=== PATIENT | female | born 1970 | race American Indian/Alaskan Native ===

== ENCOUNTER 2022-03-16 15:51 | Inpatient (IN) | payer MEDICAID ==
--- NOTE | 2022-03-16 18:47 | XRay Report ---
CHEST 1 VIEW 03/16/2022 5:31 PM INDICATION / CLINICAL INFORMATION: Dyspnea. COMPARISON: None available. FINDINGS: SUPPORT DEVICES: None. HEART / MEDIASTINUM: Cardiomegaly and suspected central pulmonary venous congestion. LUNGS / PLEURA: Mild perihilar edema. No significant pleural effusion or evidence for pneumonia. No p neumothorax. ADDITIONAL FINDINGS: None IMPRESSION: 1. Suspected features of mild CHF with central pulmonary venous congestion and likely mild perihilar edema. Consider short-term PA and lateral chest follow-up. Signer Name: Carlos Christiansen MD Signed: 03/16/2022 6:42 PM Workstation Name: [id number]
[2022-03-16 19:05] LABS: Basophils # (Auto) 0.1 K/mm3 (0.0-0.1); Eosinophils % (Auto) 0.4 % (0.0-4.3); Lymphocytes # (Auto) 1.7 K/mm3 (1.2-5.4); Lymphocytes % (Auto) 19.9 % (13.4-35.0); Mean Corpuscular HGB Conc 29 % (30-34); Mean Corpuscular Volume 80 fl (79-97); Monocytes # (Auto) 1.2 K/mm3 (0.0-0.8); Monocytes % (Auto) 13.9 % (0.0-7.3); Platelet Count 344 K/mm3 (140-440)
[2022-03-16 19:09] LABS: Hematocrit 29.4 % (30.3-42.9); Hemoglobin 8.6 gm/dl (10.1-14.3)
[2022-03-16 19:20] LABS: Alanine Aminotransferase 15 units/L (7-56); Albumin 3.7 g/dL (3.9-5); BUN/Creatinine Ratio 16; Blood Urea Nitrogen 16 mg/dL (7-17); Calcium 8.7 mg/dL (8.4-10.2); Hemolysis Index 0
--- NOTE | 2022-03-16 19:24 | Emergency Department Report ---
HPI - General Chief Complaint: Dyspnea/Respdistress Time Seen by Provider: 03/16/22 19:01 - HPI HPI: Room 1 Patient is a 51-year-old female present with a chief complaint of shortness of breath. The patient states the past 2 to 3 weeks she is constant shortness of breath. Patient also admits an occasional cough productive of white sputum. Patient denies history of fever. Patient also admits to orthopnea for the same period of time. ED Past Medical Hx - Past Medical History Previous Medical History?: Yes Hx Hypertension: Yes Hx Asthma: Yes - Surgical History Past Surgical History?: No - Family History Family history: no significant - Social History Smoking Status: Never Smoker Substance Use Type: None (Denies illicit drug use) ED Review of Systems ROS: Stated complaint: HAVING TROUBLE BREATHING Other details as noted in HPI Constitutional: denies: fever Eyes: denies: eye pain ENT: denies: throat pain Respiratory: cough, orthopnea, shortness of breath Cardiovascular: orthopnea. denies: chest pain Endocrine: no symptoms reported Gastrointestinal: denies: abdominal pain Musculoskeletal: denies: back pain Neurological: denies: headache Physical Exam - Physical Exam Vital Signs: Vital Signs 03/16/22 17:26 Temperature 98.8 F Pulse Rate 89 Respiratory 18 Rate Blood Pressure 97/45 [Left] O2 Sat by Pulse 86 Oximetry Physical Exam: GENERAL: The patient is well-developed well-nourished female sleeping on stretcher not appearing to be in acute distress. [] HEENT: Normocephalic. Atraumatic. Extraocular motions are intact. Patient has moist mucous membranes. NECK: Supple. Trachea midline CHEST/LUNGS: Clear to auscultation. There is no respiratory distress noted. HEART/CARDIOVASCULAR: Regular. There is no tachycardia. There is no gallop rub or murmur. ABDOMEN: Abdomen is soft, nontender. Patient has normal bowel sounds. There is no abdominal distention. SKIN: There is no rash. Trace to 1+ bilateral lower extremity pitting edema. There is no diaphoresis. NEURO: The patient is asleep but awakens to tactile stimuli to become awake , alert, and oriented. The patient is cooperative. The patient has no focal neurologic deficits. The patient has normal speech. GCS 15 MUSCULOSKELETAL: There is no evidence of acute injury. ED Course Vital Signs 03/16/22 17:26 Temperature 98.8 F Pulse Rate 89 Respiratory 18 Rate Blood Pressure 97/45 [Left] O2 Sat by Pulse 86 Oximetry ED Medical Decision Making - Lab Data Result diagrams: 03/16/22 18:29 03/16/22 18:29 - EKG Data -: EKG Interpreted by Me EKG shows normal: sinus rhythm Rate: normal (86 beats per) - EKG Data When compared to previous EKG there are: previous EKG unavailable Interpretation: other (Low voltage, no ischemic changes seen) - Radiology Data Radiology results: report reviewed (Chest x-ray), image reviewed (Chest x-ray) interpreted by me: Chest x-ray-CHF, no pneumothorax [facility] [address] [place] [address] XRay Report Signed Patient: CHEPE SEGOVIA MR#: [id number] : 1970 Acct:[id number] Age/Sex: 51 / F ADM Date: 03/16/22 Loc: ED Attending Dr: Ordering Physician: ED MD LEEANNA Date of Service: 03/16/22 Procedure(s): XR chest 1V ap Accession Number(s): [id number] cc: ED MD LEEANNA Fluoro Time In Minutes: CHEST 1 VIEW 03/16/2022 5:31 PM INDICATION / CLINICAL INFORMATION: Dyspnea. COMPARISON: None available. FINDINGS: SUPPORT DEVICES: None. HEART / MEDIASTINUM: Cardiomegaly and suspected central pulmonary venous congestion. LUNGS / PLEURA: Mild perihilar edema. No significant pleural effusion or evidence for pneumonia. No pneumothorax. ADDITIONAL FINDINGS: None IMPRESSION: 1. Suspected features of mild CHF with central pulmonary venous congestion and likely mild perihilar edema. Consider short-term PA and lateral chest follow-up. Signer Name: Carlos Smith MD Signed: 03/16/2022 6:42 PM Workstation Name: [id number] Transcribed By: RH Dictated By: CARLOS SMITH MD Electronically Authenticated By: CARLOS SMITH MD Signed Date/Time: 03/16/221841 DD/ 40 TD/TT: - Differential Diagnosis Pneumonia, CHF, bronchitis, Critical care attestation.: If time is entered above; I have spent that time in minutes in the direct care of this critically ill patient, excluding procedure time. ED Disposition Clinical Impression: New onset of congestive heart failure, Hypoxia Disposition: ADMITTED INPATIENT Is pt being admited?: Yes Does the pt Need Aspirin: Yes Condition: Fair Time of Disposition: 21:05 (Care transferred to hospitalist (Dr. Marquis))
[2022-03-16 19:53] LABS: ABG HCO3 35.5 mmol/L (20.0-26.0); ABG Methemoglobin 0.4 % (0.0-1.5); ABG Oxygen Saturation 78.5 % (95.0-99.0); ABG PCO2 79.5 mm Hg; ABG PH 7.268 pH Units (7.350-7.450)
[2022-03-16 20:02] LABS: INR 1.14 (0.87-1.13)
[2022-03-16 20:03] LABS: Partial Thromboplastin Time 29.2 Sec. (24.2-36.6)
[2022-03-16] MEDS ORDERED: FUROSEMIDE 40 MG/4 ML INJ IV ONE (20:53)
[2022-03-16] MEDS ORDERED: MORPHINE 2 MG/1 ML INJ IV PRN ×2 (21:07→22:12)
[2022-03-16] MEDS ORDERED: ASPIRIN 325 MG TAB PO ONE (21:07)
[2022-03-16] MEDS ORDERED: ACETAMINOPHEN 325 MG TAB PO PRN ×2 (21:07→22:12)
[2022-03-16] MEDS ORDERED: ONDANSETRON 4 MG/2 ML INJ IV PRN ×2 (21:07→22:12)
[2022-03-16] MEDS ORDERED: MORPHINE 4 MG/1 ML INJ IV PRN (22:12)
[2022-03-16] MEDS ORDERED: ALBUTEROL 2.5 MG/3 ML NEBU IH PRN (22:12)
--- NOTE | 2022-03-16 22:21 | History and Physical Report ---
History of Present Illness Date of examination: 03/16/22 Date of admission: 03/16/22 21:07 Chief complaint: Dyspnea Respiratory distress History of present illness: 51-year-old female with history of asthma, hypertension and morbid obesity was brought to the emergency room because of shortness of breath. The patient states the past 2 to 3 weeks she is constant shortness of breath. Patient also admits an occasional cough productive of white sputum. Patient denies history of fever. Patient also admits to orthopnea for the same period of time. In the emergency room patient ABG shows pH of 7.268. PCO2 79.5. PO2 53.0 and bicarb 35.5 O2 sats 78.5 also chest x-ray compatible with CHF exacerbation patient proBNP is 2855. We are going to put the patient on BiPAP we will put the patient on Lasix neb breathing treatment consult cardiology and order echoca rdiogram Past History Past Medical History: hypertension, other (Asthma) Past Surgical History: No surgical history Social history: no significant social history Family history: no significant family history Medications and Allergies Allergies Allergy/AdvReac Type Severity Reaction Status Date / Time No Known Allergies Allergy Verified 03/16/22 21:12 Active Meds: Active Medications Acetaminophen (Acetaminophen 325 Mg Tab) 650 mg PO Q4H PRN PRN Reason: Pain MILD(1-3)/Fever >100.5/CONSTANTINO Acetaminophen (Acetaminophen 325 Mg Tab) 650 mg PO Q4H PRN PRN Reason: Pain MILD(1-3)/Fever >100.5/CONSTANTINO Albuterol (Albuterol 2.5 Mg/3 Ml Nebu) 2.5 mg IH Q4HRT PRN PRN Reason: Shortness Of Breath Albuterol/Ipratropium (Ipratropium/Albuterol Sulfate 3 Ml Ampul.Neb) 1 ampul IH Q6HRT ARAMIS Famotidine (Famotidine 20 Mg/2 Ml Inj) 20 mg IV BID ARAMIS Furosemide (Furosemide 40 Mg/4 Ml Inj) 40 mg IV BID@0600,1800 ARAMIS Heparin Sodium (Porcine) (Heparin 5,000 Unit/1 Ml Vial) 5,000 unit SUB-Q Q8HR ARAMIS Lisinopril (Lisinopril 5 Mg Tab) 5 mg PO QDAY ARAMIS Morphine Sulfate (Morphine 2 Mg/1 Ml Inj) 2 mg IV Q4H PRN PRN Reason: Pain, Moderate (4-6) Morphine Sulfate (Morphine 2 Mg/1 Ml Inj) 2 mg IV Q4H PRN PRN Reason: Pain, Moderate (4-6) Morphine Sulfate (Morphine 4 Mg/1 Ml Inj) 4 mg IV Q4H PRN PRN Reason: Pain , Severe (7-10) Ondansetron HCl (Ondansetron 4 Mg/2 Ml Inj) 4 mg IV Q8H PRN PRN Reason: Nausea And Vomiting Ondansetron HCl (Ondansetron 4 Mg/2 Ml Inj) 4 mg IV Q8H PRN PRN Reason: Nausea And Vomiting Sodium Chloride (Sodium Chloride 0.9% 10 Ml Flush Syringe) 10 ml IV BID ARAMIS Sodium Chloride (Sodium Chloride 0.9% 10 Ml Flush Syringe) 10 ml IV PRN PRN PRN Reason: LINE FLUSH Sodium Chloride (Sodium Chloride 0.9% 10 Ml Flush Syringe) 10 ml IV BID ARAMIS Sodium Chloride (Sodium Chloride 0.9% 10 Ml Flush Syringe) 10 ml IV PRN PRN PRN Reason: LINE FLUSH Review of Systems All systems: negative Cardiovascular: orthopnea, edema, shortness of breath, dyspnea on exertion, paroxysmal nocturnal dyspnea Respiratory: shortness of breath, dyspnea on exertion Exam - Constitutional Vitals: Temp Pulse Resp BP Pulse Ox 98.8 F 90 20 113/70 100 03/16/22 17:26 03/16/22 20:41 03/16/22 20:41 03/16/22 20:41 03/16/22 20:10 General appearance: Present: no acute distress, well-nourished - EENT Eyes: Present: PERRL ENT: hearing intact, clear oral mucosa - Neck Neck: Present: supple, normal ROM - Respiratory Respiratory effort: normal Respiratory: bilateral: rales - Cardiovascular Heart Sounds: Present: S1 & S2. Absent: rub, click - Extremities Extremities: pulses symmetrical Extremity abnormal: edema Peripheral Pulses: within normal limits - Abdominal General gastrointestinal: Present: soft, non-tender, non-distended, normal bowel sounds Female genitourinary: Present: normal - Integumentary Integumentary: Present: clear, warm, dry - Musculoskeletal Musculoskeletal: gait normal, strength equal bilaterally - Psychiatric Psychiatric: appropriate mood/affect, intact judgment & insight - Neurologic Neurologic: CNII-XII intact, moves all extremities HEART Score - HEART Score Troponin: Troponin T < 0.010 ng/mL (0.00-0.029) 03/16/22 18: Results - Labs CBC & Chem 7: 03/16/22 18:29 03/16/22 18: Labs: Laboratory Last Values WBC 8.5 K/mm3 (4.5-11.0) 03/16/22 18: RBC 3.70 M/mm3 (3.65-5.03) 03/16/22 18: Hgb 8.6 gm/dl (10.1-14.3) L 03/16/22 18: Hct 29.4 % (30.3-42.9) L 03/16/22 18: MCV 80 fl (79-97) 03/16/22 18: MCH 23 pg (28-32) L 03/16/22 18: MCHC 29 % (30-34) L 03/16/22 18: RDW 20.0 % (13.2-15.2) H 03/16/22 18: Plt Count 344 K/mm3 (140-440) 03/16/22 18: Lymph % (Auto) 19.9 % (13.4-35.0) 03/16/22 18: [place] % (Auto) 13.9 % (0.0-7.3) H 03/16/22 18: Eos % (Auto) 0.4 % (0.0-4.3) 03/16/22 18: Baso % (Auto) 1.0 % (0.0-1.8) 03/16/22 18: Lymph # (Auto) 1.7 K/mm3 (1.2-5.4) 03/16/22 18: [place] # (Auto) 1.2 K/mm3 (0.0-0.8) H 03/16/22 18: Eos # (Auto) 0.0 K/mm3 (0.0-0.4) 03/16/22 18: Baso # (Auto) 0.1 K/mm3 (0.0-0.1) 03/16/22 18: Seg Neutrophils % 64.8 % (40.0-70.0) 03/16/22 18:29 Seg Neutrophils # 5.5 K/mm3 (1.8-7.7) 03/16/22 18:29 PT 15.9 Sec. (12.2-14.9) H 03/16/22 18:29 INR 1.14 (0.87-1.13) H 03/16/22 18:29 APTT 29.2 Sec. (24.2-36.6) 03/16/22 18:29 ABG pH 7.268 pH Units (7.350-7.450) L 03/16/22 19:35 ABG pCO2 79.5 mm Hg 03/16/22 19:35 ABG pO2 53.0 mm Hg (80.0-90.0) L 03/16/22 19:35 ABG HCO3 35.5 mmol/L (20.0-26.0) H 03/16/22 19:35 ABG O2 Saturation 78.5 % (95.0-99.0) L 03/16/22 19:35 ABG O2 Content 9.5 (0.0-44) 03/16/22 19:35 ABG Base Excess 7.0 mmol/L (-2.0-3.0) H 03/16/22 19:35 ABG Hemoglobin 8.8 gm/dl (12.0-16.0) L 03/16/22 19:35 ABG Carboxyhemoglobin 2.2 % (0.0-5.0) 03/16/22 19:35 ABG Methemoglobin 0.4 % (0.0-1.5) 03/16/22 19:35 Oxyhemoglobin 76.5 % (95.0-99.0) L 03/16/22 19:35 FiO2 21 % 03/16/22 19:35 Sodium 132 mmol/L (137-145) L 03/16/22 18:29 Potassium 5.2 mmol/L (3.6-5.0) H 03/16/22 18:29 Chloride 90.9 mmol/L (98-107) L 03/16/22 18:29 Carbon Dioxide 33 mmol/L (22-30) H 03/16/22 18:29 Anion Gap 13 mmol/L 03/16/22 18:29 BUN 16 mg/dL (7-17) 03/16/22 18:29 Creatinine 1.0 mg/dL (0.6-1.2) 03/16/22 18:29 Estimated GFR 59 ml/min 03/16/22 18:29 BUN/Creatinine Ratio 16 % 03/16/22 18:29 Glucose 89 mg/dL (65-100) 03/16/22 18:29 Calcium 8.7 mg/dL (8.4-10.2) 03/16/22 18:29 Total Bilirubin 0.90 mg/dL (0.1-1.2) 03/16/22 18:29 AST 22 units/L (5-40) 03/16/22 18:29 ALT 15 units/L (7-56) 03/16/22 18:29 Alkaline Phosphatase 86 units/L (35-129) 03/16/22 18:29 Troponin T < 0.010 ng/mL (0.00-0.029) 03/16/22 18:29 NT-Pro-B Natriuret Pep 2855 pg/mL (0-450) H 03/16/22 18:29 Total Protein 7.7 g/dL (6.3-8.2) 03/16/22 18:29 Albumin 3.7 g/dL (3.9-5) L 03/16/22 18:29 Albumin/Globulin Ratio 0.9 % 03/16/22 18:29 - Imaging and Cardiology Chest x-ray: report reviewed Assessment and Plan VTE prophylaxis?: Chemical Plan of care discussed with patient/family: Yes - Patient Problems (1) New onset of congestive heart failure Current Visit: Yes Status: Acute Plan to address problem: Admit the patient to the medical telemetry. Put the patient on BiPAP. Lasix 40 mg IV every 12 hours. Fluid restriction today. Daily weight. Maintain input output. Echocardiogram. Cardiology evaluation (2) Acute respiratory failure Current Visit: Yes Status: Acute Plan to address problem: Put the patient on BiPAP. DuoNeb by nebulizer every 4 hours. Albuterol via nebulizer every 4 hours as needed. Lasix 40 mg IV every 12 hours. Echocardiogram. Cardiology evaluation (3) Morbid obesity Current Visit: Yes Status: Acute Plan to address problem: We counseled the patient regarding weight loss. Outpatient follow-up with bariatric surgery (4) Hypertension Current Visit: Yes Status: Acute Plan to address problem: Lisinopril 5 mg p.o. daily. Hydralazine 10 mg IV every 6 hours as needed. Cardiology evaluation (5) Asthma Current Visit: Yes Status: Acute Plan to address problem: Put the patient on BiPAP. DuoNeb by nebulizer every 4 hours. Albuterol via nebulizer every 4 hours as needed. (6) Hypoxia Current Visit: Yes Status: Acute Plan to address problem: Put the patient on BiPAP. DuoNeb by nebulizer every 4 hours. Albuterol via nebulizer every 4 hours as needed. (7) DVT prophylaxis Current Visit: Yes Status: Acute Plan to address problem: Heparin 5000 units subcu every 8 hours for DVT prophylaxis. Pepcid 20 mg p.o. twice daily for GI prophylaxis. Patient is a full code
[2022-03-17] MEDS: IPRATROPIUM/ALBUTEROL SULFATE 3 ML AMPUL.NEB IH SCH ×4 (03:17→21:08)
[2022-03-17 05:35] LABS: Basophils % (Auto) 0.1 % (0.0-1.8); Eosinophils % (Auto) 0.4 % (0.0-4.3); Lymphocytes # (Auto) 1.1 K/mm3 (1.2-5.4); Lymphocytes % (Auto) 11.2 % (13.4-35.0); Mean Corpuscular HGB Conc 28 % (30-34); Mean Corpuscular Volume 82 fl (79-97); Monocytes # (Auto) 1.5 K/mm3 (0.0-0.8); Monocytes % (Auto) 15.2 % (0.0-7.3); Platelet Count 310 K/mm3 (140-440); Red Blood Count 3.71 M/mm3 (3.65-5.03)
[2022-03-17 05:38] LABS: Hematocrit 30.3 % (30.3-42.9); Hemoglobin 8.6 gm/dl (10.1-14.3); Red Cell Distribution Width 20.4 % (13.2-15.2)
[2022-03-17 05:47] LABS: BUN/Creatinine Ratio 17; Blood Urea Nitrogen 17 mg/dL (7-17); Calcium 8.3 mg/dL (8.4-10.2)
[2022-03-17 06:17] LABS: Hemolysis Index 20
[2022-03-17] MEDS: HEPARIN 5,000 UNIT/1 ML VIAL SUB-Q SCH ×3 (07:00→21:23)
[2022-03-17] MEDS: FUROSEMIDE 40 MG/4 ML INJ IV SCH ×2 (07:01→18:07)
[2022-03-17] MEDS ORDERED: CALCIUM GLUCONATE 2,000 MG in SODIUM CHLORIDE 0.9% 100 ML IV ONE (08:38)
--- NOTE | 2022-03-17 08:42 | Progress Note ---
Assessment and Plan Assessment and plan: (1) New onset of congestive heart failure Current Visit: Yes Status: Acute Plan to address problem: Admit the patient to the medical telemetry. Put the patient on BiPAP. Lasix 40 mg IV every 12 hours. Fluid restriction today. Daily weight. Maintain input output. Echocardiogram. Cardiology evaluation (2) Acute respiratory failure Current Visit: Yes Status: Acute Plan to address problem: Put the patient on BiPAP. DuoNeb by nebulizer every 4 hours. Albuterol via nebulizer every 4 hours as needed. Lasix 40 mg IV every 12 hours. Echocardiogram. Cardiology evaluation (3) Morbid obesity Current Visit: Yes Status: Acute Plan to address problem: We counseled the patient regarding weight loss. Outpatient follow-up with bariatric surgery (4) Hypertension Current Visit: Yes Status: Acute Plan to address problem: Lisinopril 5 mg p.o. daily. Hydralazine 10 mg IV every 6 hours as needed. Cardiology evaluation (5) Asthma Current Visit: Yes Status: Acute Plan to address problem: Put the patient on BiPAP. DuoNeb by nebulizer every 4 hours. Albuterol via nebulizer every 4 hours as needed. (6) Hypoxia Current Visit: Yes Status: Acute Plan to address problem: Put the patient on BiPAP. DuoNeb by nebulizer every 4 hours. Albuterol via nebulizer every 4 hours as needed. (7) DVT prophylaxis Current Visit: Yes Status: Acute Plan to address problem: Heparin 5000 units subcu every 8 hours for DVT prophylaxis. Pepcid 20 mg p.o. twice daily for GI prophylaxis. Patient is a full code Hospitalist Physical - Constitutional Vitals: Temp Pulse Resp BP Pulse Ox 98.8 F 87 21 36/17 100 03/16/22 17:26 03/17/22 05:31 03/17/22 05:31 03/17/22 05:31 03/17/22 01:45 General appearance: Present: no acute distress, well-nourished HEART Score - HEART Score Troponin: Troponin T < 0.010 ng/mL (0.00-0.029) 03/16/22 18:29 Results - Labs CBC & Chem 7: 03/17/22 05:10 03/17/22 05:10 Labs: Laboratory Last Values WBC 9.7 K/mm3 (4.5-11.0) 03/17/22 05:10 RBC 3.71 M/mm3 (3.65-5.03) 03/17/22 05:10 Hgb 8.6 gm/dl (10.1-14.3) L 03/17/22 05:10 Hct 30.3 % (30.3-42.9) 03/17/22 05:10 MCV 82 fl (79-97) 03/17/22 05:10 MCH 23 pg (28-32) L 03/17/22 05:10 MCHC 28 % (30-34) L 03/17/22 05:10 RDW 20.4 % (13.2-15.2) H 03/17/22 05:10 Plt Count 310 K/mm3 (140-440) 03/17/22 05:10 Lymph % (Auto) 11.2 % (13.4-35.0) L 03/17/22 05:10 [place] % (Auto) 15.2 % (0.0-7.3) H 03/17/22 05:10 Eos % (Auto) 0.4 % (0.0-4.3) 03/17/22 05:10 Baso % (Auto) 0.1 % (0.0-1.8) 03/17/22 05:10 Lymph # (Auto) 1.1 K/mm3 (1.2-5.4) L 03/17/22 05:10 [place] # (Auto) 1.5 K/mm3 (0.0-0.8) H 03/17/22 05:10 Eos # (Auto) 0.0 K/mm3 (0.0-0.4) 03/17/22 05:10 Baso # (Auto) 0.0 K/mm3 (0.0-0.1) 03/17/22 05:10 Seg Neutrophils % 73.1 % (40.0-70.0) H 03/17/22 05:10 Seg Neutrophils # 7.1 K/mm3 (1.8-7.7) 03/17/22 05:10 PT 15.9 Sec. (12.2-14.9) H 03/16/22 18:29 INR 1.14 (0.87-1.13) H 03/16/22 18:29 APTT 29.2 Sec. (24.2-36.6) 03/16/22 18:29 ABG pH 7.268 pH Units (7.350-7.450) L 03/16/22 19:35 ABG pCO2 79.5 mm Hg 03/16/22 19:35 ABG pO2 53.0 mm Hg (80.0-90.0) L 03/16/22 19:35 ABG HCO3 35.5 mmol/L (20.0-26.0) H 03/16/22 19:35 ABG O2 Saturation 78.5 % (95.0-99.0) L 03/16/22 19:35 ABG O2 Content 9.5 (0.0-44) 03/16/22 19:35 ABG Base Excess 7.0 mmol/L (-2.0-3.0) H 03/16/22 19:35 ABG Hemoglobin 8.8 gm/dl (12.0-16.0) L 03/16/22 19:35 ABG Carboxyhemoglobin 2.2 % (0.0-5.0) 03/16/22 19:35 ABG Methemoglobin 0.4 % (0.0-1.5) 03/16/22 19:35 Oxyhemoglobin 76.5 % (95.0-99.0) L 03/16/22 19:35 FiO2 21 % 03/16/22 19:35 Sodium 134 mmol/L (137-145) L 03/17/22 05:10 Potassium 6.3 mmol/L (3.6-5.0) H* D 03/17/22 05:10 Chloride 93.9 mmol/L (98-107) L 03/17/22 05:10 Carbon Dioxide 37 mmol/L (22-30) H 03/17/22 05:10 Anion Gap 9 mmol/L 03/17/22 05:10 BUN 17 mg/dL (7-17) 03/17/22 05:10 Creatinine 1.0 mg/dL (0.6-1.2) 03/17/22 05:10 Estimated GFR > 60 ml/min 03/17/22 05:10 BUN/Creatinine Ratio 17 % 03/17/22 05:10 Glucose 92 mg/dL (65-100) 03/17/22 05:10 Calcium 8.3 mg/dL (8.4-10.2) L 03/17/22 05:10 Total Bilirubin 0.90 mg/dL (0.1-1.2) 03/16/22 18:29 AST 22 units/L (5-40) 03/16/22 18:29 ALT 15 units/L (7-56) 03/16/22 18:29 Alkaline Phosphatase 86 units/L (35-129) 03/16/22 18:29 Troponin T < 0.010 ng/mL (0.00-0.029) 03/16/22 18:29 NT-Pro-B Natriuret Pep 2855 pg/mL (0-450) H 03/16/22 18:29 Total Protein 7.7 g/dL (6.3-8.2) 03/16/22 18:29 Albumin 3.7 g/dL (3.9-5) L 03/16/22 18:29 Albumin/Globulin Ratio 0.9 % 03/16/22 18:29 Active Medications - Current Medications Current Medications: Generic Name Dose Route Start Last Admin Trade Name Freq PRN Reason Stop Dose Admin Acetaminophen 650 mg 03/16/22 21:07 Acetaminophen 325 Mg Tab PO Q4H PRN Pain MILD(1-3)/Fever >100.5/CONSTANTINO Albuterol 2.5 mg 03/16/22 22:12 Albuterol 2.5 Mg/3 Ml Nebu IH Q4HRT PRN Shortness Of Breath Albuterol/Ipratropium 1 ampul 03/17/22 02:00 03/17/22 03:17 Ipratropium/Albuterol Sulfate 3 Ml Ampul.Neb IH 1 ampul Q6HRT ARAMIS Administration Famotidine 20 mg 03/17/22 10:00 Famotidine 20 Mg/2 Ml Inj IV BID ARAMIS Furosemide 40 mg 03/17/22 06:00 03/17/22 07:01 Furosemide 40 Mg/4 Ml Inj IV 40 mg BID@0600,1800 ARAMIS Administration Heparin Sodium (Porcine) 5,000 unit 03/17/22 06:00 03/17/22 07:00 Heparin 5,000 Unit/1 Ml Vial SUB-Q 5,000 unit Q8HR ARAMIS Administration Calcium Gluconate 2,000 mg/ 120 mls @ 660 mls/hr 03/17/22 08:38 Sodium Chloride IV 03/17/22 08:48 ONCE ONE Lisinopril 5 mg 03/17/22 10:00 Lisinopril 5 Mg Tab PO QDAY ARAMIS Morphine Sulfate 2 mg 03/16/22 21:07 Morphine 2 Mg/1 Ml Inj IV Q4H PRN Pain, Moderate (4-6) Morphine Sulfate 4 mg 03/16/22 22:12 Morphine 4 Mg/1 Ml Inj IV Q4H PRN Pain , Severe (7-10) Ondansetron HCl 4 mg 03/16/22 21:07 Ondansetron 4 Mg/2 Ml Inj IV Q8H PRN Nausea And Vomiting Sodium Chloride 10 ml 03/16/22 22:00 Sodium Chloride 0.9% 10 Ml Flush Syringe IV BID ARAMIS Sodium Chloride 10 ml 03/16/22 21:07 Sodium Chloride 0.9% 10 Ml Flush Syringe IV PRN PRN LINE FLUSH Sodium Polystyrene Sulfonate 30 gm 03/17/22 08:38 Sodium Polystyrene 15 Gm/60 Ml Oral Liqd [place] 03/17/22 08:39 ONCE ONE
[2022-03-17] MEDS ORDERED: CALC GLUCONATE 1GM/NS 100 ML 1 GM/100 ML BAG IV ONE ×2 (09:00→10:00)
[2022-03-17] MEDS ORDERED: SODIUM POLYSTYRENE 15 GM/60 ML ORAL LIQD PR SCH (09:00)
--- NOTE | 2022-03-17 09:32 | Electrocardiograph Report ---
[facility] Test Date: 2022-03-16 Test Time: 17:32:21 Pat Name: CHEPE SEGOVIA Department: Room: A464 1 Gender: F Shipping Hand: 0000 : 1970 Requested By: DEEPAK APONTE Order Number: [id number] Reading MD: Chandler Moreno Measurements Intervals [place] Rate: 86 P: 123 [place]: 151 QRS: 181 QRSD: 89 T: 123 QT: 371 QTc: 445 Interpretive Statements Right and left arm electrode reversal, interpretation assumes no reversal Sinus rhythm Nonspecific T abnormalities, lateral leads No previous ECG available for comparison Electronically Signed On 03-17-2022 9:32:24 EDT by Chandler Moreno
[2022-03-17] MEDS ORDERED: FAMOTIDINE 20 MG/2 ML INJ IV SCH (10:00)
[2022-03-17] MEDS ORDERED: LISINOPRIL 5 MG TAB PO SCH (10:00)
[2022-03-17] MEDS: FAMOTIDINE 20 MG TAB PO SCH ×2 (10:53→21:23)
--- NOTE | 2022-03-17 12:21 | Consultation ---
History of Present Illness Consult date: 03/17/22 Requesting physician: JOURDAN GREGORY Consult reason: congestive heart failure History of present illness: Patient is a 51-year-old female with a past medical history of asthma, hypertension, morbid obesity who came to the ED for aggressive worsen shortness of breath x4 days. She states she is also have productive cough however she denies fevers, chills, malaise, nausea, vomiting, or diarrhea. History is slightly difficult to obtain due to patient's respiratory status. In the ED patient was found to have ABG of pH 7.2, elevated BNP, hyperkalemic, and CXR shows possible CHF exacerbation. Patient was put on BiPAP for respiratory status. Patient is previously unknown to our practice. Cardiology is consulted for CHF. Past History Past Medical History: hypertension, other (Asthma) Past Surgical History: No surgical history Social history: no significant social history Family history: no significant family history Medications and Allergies Allergies Allergy/AdvReac Type Severity Reaction Status Date / Time No Known Allergies Allergy Verified 03/16/22 21:12 Active Meds: Active Medications Acetaminophen (Acetaminophen 325 Mg Tab) 650 mg PO Q4H PRN PRN Reason: Pain MILD(1-3)/Fever >100.5/CONSTANTINO Albuterol (Albuterol 2.5 Mg/3 Ml Nebu) 2.5 mg IH Q4HRT PRN PRN Reason: Shortness Of Breath Albuterol/Ipratropium (Ipratropium/Albuterol Sulfate 3 Ml Ampul.Neb) 1 ampul IH Q6HRT [facility] Last Admin: 03/17/22 09:30 Dose: 1 ampul Famotidine (Famotidine 20 Mg Tab) 20 mg PO BID [facility] Last Admin: 03/17/22 10:53 Dose: 20 mg Furosemide (Furosemide 40 Mg/4 Ml Inj) 40 mg IV BID@0600,1800 [facility] Last Admin: 03/17/22 07:01 Dose: 40 mg Heparin Sodium (Porcine) (Heparin 5,000 Unit/1 Ml Vial) 5,000 unit SUB-Q Q8HR [facility] Last Admin: 03/17/22 07:00 Dose: 5,000 unit Lisinopril (Lisinopril 5 Mg Tab) 5 mg PO QDAY [facility] Last Admin: 03/17/22 10:53 Dose: 5 mg Morphine Sulfate (Morphine 2 Mg/1 Ml Inj) 2 mg IV Q4H PRN PRN Reason: Pain, Moderate (4-6) Morphine Sulfate (Morphine 4 Mg/1 Ml Inj) 4 mg IV Q4H PRN PRN Reason: Pain , Severe (7-10) Ondansetron HCl (Ondansetron 4 Mg/2 Ml Inj) 4 mg IV Q8H PRN PRN Reason: Nausea And Vomiting Sodium Chloride (Sodium Chloride 0.9% 10 Ml Flush Syringe) 10 ml IV BID [facility] Last Admin: 03/17/22 12:11 Dose: Not Given Sodium Chloride (Sodium Chloride 0.9% 10 Ml Flush Syringe) 10 ml IV PRN PRN PRN Reason: LINE FLUSH Last Admin: 03/17/22 11:00 Dose: 10 ml Sodium Polystyrene Sulfonate (Sodium Polystyrene 15 Gm/60 Ml Oral Liqd) 30 gm MN ONCE@0900 [facility] Stop: 03/17/22 14:00 Last Admin: 03/17/22 10:53 Dose: 30 gm Review of Systems Constitutional: no weight loss, no weight gain, no fever, no chills Ears, nose, mouth and throat: no ear pain, no ear discharge Cardiovascular: shortness of breath, dyspnea on exertion, no chest pain Respiratory: cough with sputum, shortness of breath, dyspnea on exertion Gastrointestinal: no abdominal pain, no nausea, no vomiting Musculoskeletal: no neck stiffness, no neck pain Integumentary: no rash, no pruritis, no redness Neurological: no head injury, no transient paralysis Psychiatric: no anxiety, no memory loss Endocrine: no cold intolerance, no heat intolerance Hematologic/Lymphatic: no easy bruising, no easy bleeding Physical Examination Vital Signs Temp Pulse Resp BP Pulse Ox 98.8 F 89 18 97/45 86 03/16/22 17:26 03/16/22 17:26 03/16/22 17:26 03/16/22 17:26 03/16/22 17:26 General appearance: no acute distress HEENT: Positive: PERRL Neck: Positive: trachea midline Cardiac: Positive: Reg Rate and Rhythm Lungs: Positive: Decreased Breath Sounds Neuro: Positive: Grossly Intact Abdomen: Positive: Soft Skin: Negative: Rash Extremities: Present: upper extr. pulses, edema Results 03/17/22 05:10 03/17/22 05:10 Cardiac Enzymes 03/16/22 Range/Units 18:29 AST 22 (5-40) units/L Coagulation 03/16/22 Range/Units 18:29 PT 15.9 H (12.2-14.9) Sec. INR 1.14 H (0.87-1.13) APTT 29.2 (24.2-36.6) Sec. CBC 03/16/22 03/17/22 Range/Units 18:29 05:10 WBC 8.5 9.7 (4.5-11.0) K/mm3 RBC 3.70 3.71 (3.65-5.03) M/mm3 Hgb 8.6 L 8.6 L (10.1-14.3) gm/dl Hct 29.4 L 30.3 (30.3-42.9) % Plt Count 344 310 (140-440) K/mm3 Lymph # (Auto) 1.7 1.1 L (1.2-5.4) K/mm3 [place] # (Auto) 1.2 H 1.5 H (0.0-0.8) K/mm3 Eos # (Auto) 0.0 0.0 (0.0-0.4) K/mm3 Baso # (Auto) 0.1 0.0 (0.0-0.1) K/mm3 Comprehensive Metabolic Panel 03/16/22 03/17/22 Range/Units 18:29 05:10 Sodium 132 L 134 L (137-145) mmol/L Potassium 5.2 H 6.3 H* D (3.6-5.0) mmol/L Chloride 90.9 L 93.9 L (98-107) mmol/L Carbon Dioxide 33 H 37 H (22-30) mmol/L BUN 16 17 (7-17) mg/dL Creatinine 1.0 1.0 (0.6-1.2) mg/dL Glucose 89 92 (65-100) mg/dL Calcium 8.7 8.3 L (8.4-10.2) mg/dL AST 22 (5-40) units/L ALT 15 (7-56) units/L Alkaline Phosphatase 86 (35-129) units/L Total Protein 7.7 (6.3-8.2) g/dL Albumin 3.7 L (3.9-5) g/dL - Imaging and Cardiology Echo: pending EKG: report reviewed EKG interpretations - Telemetry EKG Rhythm: Sinus Rhythm - EKG Sinus rhythms and dysrhythmias: sinus rhythm Repolarization changes or abnormalities: nonspecific abnormality, ST segment, and/or T wave Assessment and Plan Patient is a 51-year-old female with a past medical history of asthma, hypertension, morbid obesity who came to the ED for aggressive worsen shortness of breath x4 days. Acute respiratory failure CHF Hyperkalemia Morbid obesity Obesity hypoventilation syndrome Plan: EKG shows sinus rhythm 86 nonspecific T abnormalities. Right and left arm electrode reversal, interpretation assumes no reversal. No acute ischemic changes. Troponin negative x1. Patient denies chest pain Agree with diuresis with Lasix 40 mg IV twice daily Strict I&O's, daily weights, repeat BMP in the a.m. with close monitoring of renal function Patient currently on lisinopril 5 mg p.o. daily Due to soft BP will hold beta-blockers at this time Echo pending Patient seen in conjunction with Dr. Moreno who agrees with this plan of care - Patient Problems (1) Acute respiratory failure Current Visit: Yes Status: Acute (2) Asthma Current Visit: Yes Status: Acute (3) Hypoxia Current Visit: Yes Status: Acute (4) Morbid obesity Current Visit: Yes Status: Acute (5) New onset of congestive heart failure Current Visit: Yes Status: Acute
--- NOTE | 2022-03-17 15:24 | Progress Note ---
Assessment and Plan Assessment and plan: (1) New onset of congestive heart failure Current Visit: Yes Status: Acute Plan to address problem: Admit the patient to the medical telemetry. Put the patient on BiPAP. Lasix 40 mg IV every 12 hours. Fluid restriction today. Daily weight. Maintain input output. Echocardiogram. Cardiology evaluation (2) Acute respiratory failure Current Visit: Yes Status: Acute Plan to address problem: Put the patient on BiPAP. DuoNeb by nebulizer every 4 hours. Albuterol via nebulizer every 4 hours as needed. Lasix 40 mg IV every 12 hours. Echocardiogram. Cardiology evaluation (3) Morbid obesity Current Visit: Yes Status: Acute Plan to address problem: We counseled the patient regarding weight loss. Outpatient follow-up with bariatric surgery -- Obesity hypoventilation syndrome ; -- Obstructive sleep apnea ; (4) Hypertension Current Visit: Yes Status: Acute Plan to address problem: Lisinopril 5 mg p.o. daily. Hydralazine 10 mg IV every 6 hours as needed. Cardiology evaluation (5) Asthma Current Visit: Yes Status: Acute Plan to address problem: Put the patient on BiPAP. DuoNeb by nebulizer every 4 hours. Albuterol via nebulizer every 4 hours as needed. (6) Hypoxia Current Visit: Yes Status: Acute Plan to address problem: Put the patient on BiPAP. DuoNeb by nebulizer every 4 hours. Albuterol via nebulizer every 4 hours as needed. (7) DVT prophylaxis Current Visit: Yes Status: Acute Plan to address problem: Heparin 5000 units subcu every 8 hours for DVT prophylaxis. Pepcid 20 mg p.o. twice daily for GI prophylaxis. Patient is a full code Hospitalist Physical - Constitutional Vitals: Temp Pulse Resp BP Pulse Ox 98.8 F 63 18 102/40 94 03/16/22 17:26 03/17/22 11:09 03/17/22 11:09 03/17/22 11:09 03/17/22 11:09 General appearance: Present: no acute distress HEART Score - HEART Score Troponin: Troponin T < 0.010 ng/mL (0.00-0.029) 03/16/22 18:29 Results - Labs CBC & Chem 7: 03/17/22 05:10 03/17/22 05:10 Labs: Laboratory Last Values WBC 9.7 K/mm3 (4.5-11.0) 03/17/22 05:10 RBC 3.71 M/mm3 (3.65-5.03) 03/17/22 05:10 Hgb 8.6 gm/dl (10.1-14.3) L 03/17/22 05:10 Hct 30.3 % (30.3-42.9) 03/17/22 05:10 MCV 82 fl (79-97) 03/17/22 05:10 MCH 23 pg (28-32) L 03/17/22 05:10 MCHC 28 % (30-34) L 03/17/22 05:10 RDW 20.4 % (13.2-15.2) H 03/17/22 05:10 Plt Count 310 K/mm3 (140-440) 03/17/22 05:10 Lymph % (Auto) 11.2 % (13.4-35.0) L 03/17/22 05:10 [place] % (Auto) 15.2 % (0.0-7.3) H 03/17/22 05:10 Eos % (Auto) 0.4 % (0.0-4.3) 03/17/22 05:10 Baso % (Auto) 0.1 % (0.0-1.8) 03/17/22 05:10 Lymph # (Auto) 1.1 K/mm3 (1.2-5.4) L 03/17/22 05:10 [place] # (Auto) 1.5 K/mm3 (0.0-0.8) H 03/17/22 05:10 Eos # (Auto) 0.0 K/mm3 (0.0-0.4) 03/17/22 05:10 Baso # (Auto) 0.0 K/mm3 (0.0-0.1) 03/17/22 05:10 Seg Neutrophils % 73.1 % (40.0-70.0) H 03/17/22 05:10 Seg Neutrophils # 7.1 K/mm3 (1.8-7.7) 03/17/22 05:10 PT 15.9 Sec. (12.2-14.9) H 03/16/22 18:29 INR 1.14 (0.87-1.13) H 03/16/22 18:29 APTT 29.2 Sec. (24.2-36.6) 03/16/22 18:29 ABG pH 7.268 pH Units (7.350-7.450) L 03/16/22 19:35 ABG pCO2 79.5 mm Hg 03/16/22 19:35 ABG pO2 53.0 mm Hg (80.0-90.0) L 03/16/22 19:35 ABG HCO3 35.5 mmol/L (20.0-26.0) H 03/16/22 19:35 ABG O2 Saturation 78.5 % (95.0-99.0) L 03/16/22 19:35 ABG O2 Content 9.5 (0.0-44) 03/16/22 19:35 ABG Base Excess 7.0 mmol/L (-2.0-3.0) H 03/16/22 19:35 ABG Hemoglobin 8.8 gm/dl (12.0-16.0) L 03/16/22 19:35 ABG Carboxyhemoglobin 2.2 % (0.0-5.0) 03/16/22 19:35 ABG Methemoglobin 0.4 % (0.0-1.5) 03/16/22 19:35 Oxyhemoglobin 76.5 % (95.0-99.0) L 03/16/22 19:35 FiO2 21 % 03/16/22 19:35 Sodium 134 mmol/L (137-145) L 03/17/22 05:10 Potassium 6.3 mmol/L (3.6-5.0) H* D 03/17/22 05:10 Chloride 93.9 mmol/L (98-107) L 03/17/22 05:10 Carbon Dioxide 37 mmol/L (22-30) H 03/17/22 05:10 Anion Gap 9 mmol/L 03/17/22 05:10 BUN 17 mg/dL (7-17) 03/17/22 05:10 Creatinine 1.0 mg/dL (0.6-1.2) 03/17/22 05:10 Estimated GFR > 60 ml/min 03/17/22 05:10 BUN/Creatinine Ratio 17 % 03/17/22 05:10 Glucose 92 mg/dL (65-100) 03/17/22 05:10 Calcium 8.3 mg/dL (8.4-10.2) L 03/17/22 05:10 Total Bilirubin 0.90 mg/dL (0.1-1.2) 03/16/22 18:29 AST 22 units/L (5-40) 03/16/22 18:29 ALT 15 units/L (7-56) 03/16/22 18:29 Alkaline Phosphatase 86 units/L (35-129) 03/16/22 18:29 Troponin T < 0.010 ng/mL (0.00-0.029) 03/16/22 18:29 NT-Pro-B Natriuret Pep 2855 pg/mL (0-450) H 03/16/22 18:29 Total Protein 7.7 g/dL (6.3-8.2) 03/16/22 18:29 Albumin 3.7 g/dL (3.9-5) L 03/16/22 18:29 Albumin/Globulin Ratio 0.9 % 03/16/22 18:29 Active Medications - Current Medications Current Medications: Generic Name Dose Route Start Last Admin Trade Name Freq PRN Reason Stop Dose Admin Acetaminophen 650 mg 03/16/22 21:07 Acetaminophen 325 Mg Tab PO Q4H PRN Pain MILD(1-3)/Fever >100.5/CONSTANTINO Albuterol 2.5 mg 03/16/22 22:12 Albuterol 2.5 Mg/3 Ml Nebu IH Q4HRT PRN Shortness Of Breath Albuterol/Ipratropium 1 ampul 03/17/22 02:00 03/17/22 09:30 Ipratropium/Albuterol Sulfate 3 Ml Ampul.Neb IH 1 ampul Q6HRT [facility] Administration Famotidine 20 mg 03/17/22 11:00 03/17/22 10:53 Famotidine 20 Mg Tab PO 20 mg BID [facility] Administration Furosemide 40 mg 03/17/22 06:00 03/17/22 07:01 Furosemide 40 Mg/4 Ml Inj IV 40 mg BID@0600,1800 [facility] Administration Heparin Sodium (Porcine) 5,000 unit 03/17/22 06:00 03/17/22 13:41 Heparin 5,000 Unit/1 Ml Vial SUB-Q 5,000 unit Q8HR [facility] Administration Lisinopril 5 mg 03/17/22 10:00 03/17/22 10:53 Lisinopril 5 Mg Tab PO 5 mg QDAY [facility] Administration Morphine Sulfate 2 mg 03/16/22 21:07 Morphine 2 Mg/1 Ml Inj IV Q4H PRN Pain, Moderate (4-6) Morphine Sulfate 4 mg 03/16/22 22:12 Morphine 4 Mg/1 Ml Inj IV Q4H PRN Pain , Severe (7-10) Ondansetron HCl 4 mg 03/16/22 21:07 Ondansetron 4 Mg/2 Ml Inj IV Q8H PRN Nausea And Vomiting Sodium Chloride 10 ml 03/16/22 22:00 03/17/22 12:11 Sodium Chloride 0.9% 10 Ml Flush Syringe IV Not Given BID [facility] Sodium Chloride 10 ml 03/16/22 21:07 03/17/22 11:00 Sodium Chloride 0.9% 10 Ml Flush Syringe IV 10 ml PRN PRN Administration LINE FLUSH
--- NOTE | 2022-03-17 15:32 | Progress Note ---
Assessment and Plan Assessment and plan: --Acute hypoxic respiratory failure Current Visit: Yes Status: Acute Plan to address problem: Put the patient on BiPAP. DuoNeb by nebulizer every 4 hours. Albuterol via nebulizer every 4 hours as needed. Lasix 40 mg IV every 12 hours. Echocardiogram. Cardiology evaluation -- Morbid obesity; BMI 65 point Current Visit: Yes Status: Acute Plan to address problem: We counseled the patient regarding weight loss. Outpatient follow-up with bariatric surgery -- Obesity hypoventilation syndrome ; Patient is on continuous BiPAP, wean as tolerated Will consult pulmonary, continue oxygen titrate O2 sats to more than 90% Nebulizers, steroids. Pulmonary consult -- Obstructive sleep apnea ; Patient needs outpatient sleep study To rule out obstructive sleep apnea, patient may need CPAP/BiPAP at night -- Possible congestive heart failure: [Unknown ejection fraction] fluid restriction put the patient on BiPAP. Lasix 40 mg IV every 12 hours. Fluid restriction today. Daily weight. Maintain input output. Echocardiogram. Cardiology evaluation --Severe hyperkalemia; potassium 6.3 Calcium gluconate 2000 mg IV x1 Kayexalate 30 g p.o. x1 Closely monitor electrolytes - Hypertension Current Visit: Yes Status: Acute Plan to address problem: Lisinopril 5 mg p.o. daily. Hydralazine 10 mg IV every 6 hours as needed. Cardiology evaluation -- Bronchial asthma exacerbation Current Visit: Yes Status: Acute Plan to address problem: Put the patient on BiPAP. DuoNeb by nebulizer every 4 hours. Albuterol via nebulizer every 4 hours as needed. Titrate O2 sats to more than 90%, IV steroids, pulmonary consult --DVT prophylaxis Current Visit: Yes Status: Acute Plan to address problem: Heparin 5000 units subcu every 8 hours for DVT prophylaxis. Pepcid 20 mg p.o. twice daily for GI prophylaxis. Patient is a full code We will closely monitor the patient and adjust management as needed Plan of care reviewed with the patient and her nurse I discussed with respiratory therapist, I consulted sound recordist and discussed patient's condition. History Interval history: I have seen and examined the patient at the bedside Patient's chart and medications reviewed Patient in severe respiratory distress, on continuous BiPAP Patient is minimally communicative due to BiPAP Afebrile, vital signs reviewed Morbidly obese Hospitalist Physical - Constitutional Vitals: Temp Pulse Resp BP Pulse Ox 98.8 F 63 18 102/40 94 03/16/22 17:26 03/17/22 11:09 03/17/22 11:09 03/17/22 11:09 03/17/22 11:09 General appearance: Present: severe distress, well-nourished, obese (Morbidly obese), other (On BiPAP) - EENT Eyes: Present: PERRL, EOM intact - Neck Neck: Present: supple, normal ROM - Respiratory Respiratory effort: normal Respiratory: bilateral: diminished, negative: rales, rhonchi, wheezing - Cardiovascular Rhythm: regular Heart Sounds: Present: S1 & S2 - Extremities Extremities: no ischemia, No edema - Abdominal General gastrointestinal: soft, non-tender, non-distended, normal bowel sounds, other (Obese) - Integumentary Integumentary: Present: clear, warm - Psychiatric Psychiatric: other (In distress on BiPAP) - Neurologic Neurologic: moves all extremities, other (On BiPAP) HEART Score - HEART Score Troponin: Troponin T < 0.010 ng/mL (0.00-0.029) 03/16/22 18:29 Results - Labs CBC & Chem 7: 03/17/22 05:10 03/17/22 05:10 Labs: Laboratory Last Values WBC 9.7 K/mm3 (4.5-11.0) 03/17/22 05:10 RBC 3.71 M/mm3 (3.65-5.03) 03/17/22 05:10 Hgb 8.6 gm/dl (10.1-14.3) L 03/17/22 05:10 Hct 30.3 % (30.3-42.9) 03/17/22 05:10 MCV 82 fl (79-97) 03/17/22 05:10 MCH 23 pg (28-32) L 03/17/22 05:10 MCHC 28 % (30-34) L 03/17/22 05:10 RDW 20.4 % (13.2-15.2) H 03/17/22 05:10 Plt Count 310 K/mm3 (140-440) 03/17/22 05:10 Lymph % (Auto) 11.2 % (13.4-35.0) L 03/17/22 05:10 [place] % (Auto) 15.2 % (0.0-7.3) H 03/17/22 05:10 Eos % (Auto) 0.4 % (0.0-4.3) 03/17/22 05:10 Baso % (Auto) 0.1 % (0.0-1.8) 03/17/22 05:10 Lymph # (Auto) 1.1 K/mm3 (1.2-5.4) L 03/17/22 05:10 [place] # (Auto) 1.5 K/mm3 (0.0-0.8) H 03/17/22 05:10 Eos # (Auto) 0.0 K/mm3 (0.0-0.4) 03/17/22 05:10 Baso # (Auto) 0.0 K/mm3 (0.0-0.1) 03/17/22 05:10 Seg Neutrophils % 73.1 % (40.0-70.0) H 03/17/22 05:10 Seg Neutrophils # 7.1 K/mm3 (1.8-7.7) 03/17/22 05:10 PT 15.9 Sec. (12.2-14.9) H 03/16/22 18:29 INR 1.14 (0.87-1.13) H 03/16/22 18:29 APTT 29.2 Sec. (24.2-36.6) 03/16/22 18:29 ABG pH 7.268 pH Units (7.350-7.450) L 03/16/22 19:35 ABG pCO2 79.5 mm Hg 03/16/22 19:35 ABG pO2 53.0 mm Hg (80.0-90.0) L 03/16/22 19:35 ABG HCO3 35.5 mmol/L (20.0-26.0) H 03/16/22 19:35 ABG O2 Saturation 78.5 % (95.0-99.0) L 03/16/22 19:35 ABG O2 Content 9.5 (0.0-44) 03/16/22 19:35 ABG Base Excess 7.0 mmol/L (-2.0-3.0) H 03/16/22 19:35 ABG Hemoglobin 8.8 gm/dl (12.0-16.0) L 03/16/22 19:35 ABG Carboxyhemoglobin 2.2 % (0.0-5.0) 03/16/22 19:35 ABG Methemoglobin 0.4 % (0.0-1.5) 03/16/22 19:35 Oxyhemoglobin 76.5 % (95.0-99.0) L 03/16/22 19:35 FiO2 21 % 03/16/22 19:35 Sodium 134 mmol/L (137-145) L 03/17/22 05:10 Potassium 6.3 mmol/L (3.6-5.0) H* D 03/17/22 05:10 Chloride 93.9 mmol/L (98-107) L 03/17/22 05:10 Carbon Dioxide 37 mmol/L (22-30) H 03/17/22 05:10 Anion Gap 9 mmol/L 03/17/22 05:10 BUN 17 mg/dL (7-17) 03/17/22 05:10 Creatinine 1.0 mg/dL (0.6-1.2) 03/17/22 05:10 Estimated GFR > 60 ml/min 03/17/22 05:10 BUN/Creatinine Ratio 17 % 03/17/22 05:10 Glucose 92 mg/dL (65-100) 03/17/22 05:10 Calcium 8.3 mg/dL (8.4-10.2) L 03/17/22 05:10 Total Bilirubin 0.90 mg/dL (0.1-1.2) 03/16/22 18:29 AST 22 units/L (5-40) 03/16/22 18:29 ALT 15 units/L (7-56) 03/16/22 18:29 Alkaline Phosphatase 86 units/L (35-129) 03/16/22 18:29 Troponin T < 0.010 ng/mL (0.00-0.029) 03/16/22 18:29 NT-Pro-B Natriuret Pep 2855 pg/mL (0-450) H 03/16/22 18:29 Total Protein 7.7 g/dL (6.3-8.2) 03/16/22 18:29 Albumin 3.7 g/dL (3.9-5) L 03/16/22 18:29 Albumin/Globulin Ratio 0.9 % 03/16/22 18:29 Active Medications - Current Medications Current Medications: Generic Name Dose Route Start Last Admin Trade Name Freq PRN Reason Stop Dose Admin Acetaminophen 650 mg 03/16/22 21:07 Acetaminophen 325 Mg Tab PO Q4H PRN Pain MILD(1-3)/Fever >100.5/[facility]INO Albuterol 2.5 mg 03/16/22 22:12 Albuterol 2.5 Mg/3 Ml Nebu IH Q4HRT PRN Shortness Of Breath Albuterol/Ipratropium 1 ampul 03/17/22 02:00 03/17/22 09:30 Ipratropium/Albuterol Sulfate 3 Ml Ampul.Neb IH 1 ampul Q6HRT [facility] Administration Famotidine 20 mg 03/17/22 11:00 03/17/22 10:53 Famotidine 20 Mg Tab PO 20 mg BID [facility] Administration Furosemide 40 mg 03/17/22 06:00 03/17/22 07:01 Furosemide 40 Mg/4 Ml Inj IV 40 mg BID@0600,1800 [facility] Administration Heparin Sodium (Porcine) 5,000 unit 03/17/22 06:00 03/17/22 13:41 Heparin 5,000 Unit/1 Ml Vial SUB-Q 5,000 unit Q8HR [facility] Administration Lisinopril 5 mg 03/17/22 10:00 03/17/22 10:53 Lisinopril 5 Mg Tab PO 5 mg QDAY [facility] Administration Morphine Sulfate 2 mg 03/16/22 21:07 Morphine 2 Mg/1 Ml Inj IV Q4H PRN Pain, Moderate (4-6) Morphine Sulfate 4 mg 03/16/22 22:12 Morphine 4 Mg/1 Ml Inj IV Q4H PRN Pain , Severe (7-10) Ondansetron HCl 4 mg 03/16/22 21:07 Ondansetron 4 Mg/2 Ml Inj IV Q8H PRN Nausea And Vomiting Sodium Chloride 10 ml 03/16/22 22:00 03/17/22 12:11 Sodium Chloride 0.9% 10 Ml Flush Syringe IV Not Given BID [facility] Sodium Chloride 10 ml 03/16/22 21:07 03/17/22 11:00 Sodium Chloride 0.9% 10 Ml Flush Syringe IV 10 ml PRN PRN Administration LINE FLUSH
[2022-03-17] MEDS: methylPREDNISolone Sod Succinate 125 MG/2 ML INJ IV SCH (21:22)
[2022-03-18] MEDS: FUROSEMIDE 40 MG/4 ML INJ IV SCH (05:55)
[2022-03-18] MEDS: methylPREDNISolone Sod Succinate 125 MG/2 ML INJ IV SCH ×3 (06:02→21:59)
[2022-03-18] MEDS: HEPARIN 5,000 UNIT/1 ML VIAL SUB-Q SCH ×3 (06:02→21:57)
[2022-03-18 06:41] LABS: Albumin 3.5 g/dL (3.9-5); Calcium 8.7 mg/dL (8.4-10.2)
[2022-03-18] MEDS ORDERED: SODIUM POLYSTYRENE 15 GM/60 ML ORAL LIQD PO NR (07:10)
[2022-03-18] MEDS ORDERED: INSULIN REGULAR, HUMAN 100 UNITS/1 ML IV ONE (07:10)
[2022-03-18] MEDS ORDERED: D5W 50 ML IVPB IV ONE (07:12)
[2022-03-18] MEDS: IPRATROPIUM/ALBUTEROL SULFATE 3 ML AMPUL.NEB IH SCH ×4 (08:48→19:40)
--- NOTE | 2022-03-18 09:00 | Progress Note ---
Assessment and Plan Assessment and plan: Patient has potassium of 6.2, being corrected with Kayexalate and insulin plus dextrose Acute kidney injury probably secondary to overdiuresis, closely monitor renal function, DC lisinopril Follow echocardiogram for LV function ejection fraction, follow cardiology recommendations Patient is on high flow nasal cannula oxygen 40 L Assessment and plan: --Acute hypoxic hypercapnic respiratory failure Patient is on high flow nasal cannula oxygen 40 L/75% FiO2/91% O2 sats Wean as tolerated, pulmonary consulted Continue nebulizers, IV steroids supportive care If no improvement we may consider transferring to IMCU/ICU after pulmonary evaluation Home O2 evaluation prior to discharge -- Morbid obesity; BMI 65.2 Dietary modification, exercise as tolerated and weight reduction when medically stable Patient may benefit from outpatient bariatric surgical consultation for weight reduction program When patient is medically stable -- Obesity hypoventilation syndrome ; Patient is on continuous BiPAP, this morning on high flow nasal cannula oxygen 40 L Wean as tolerated, Nebulizers, steroids. Pulmonary consulted -- Obstructive sleep apnea ; Patient needs outpatient sleep study To rule out obstructive sleep apnea, patient may need CPAP/BiPAP at night -- Possible congestive heart failure: [Unknown ejection fraction] fluid restriction put the patient on BiPAP. Lasix 40 mg IV every 12 hours. Fluid restriction today. Daily weight. Maintain input output. Echocardiogram done, pending report, cardiology following --Severe hyperkalemia; potassium 6.2 Kayexalate 60 g p.o. x1, IV insulin and D50 Closely monitor electrolytes --Acute kidney injury; Vasomotor nephropathy, dehydration Hold Lasix, DC lisinopril monitor renal function avoid nephrotoxins, consult renal if needed - Hypertension; patient slightly hypotensive Hold blood pressure medications, as needed IV hydralazine Closely monitor -- Bronchial asthma exacerbation Patient is on high flow nasal cannula oxygen and intermittent BiPAP. Wean as tolerated , continue nebulizers IV steroids Titrate O2 sats to more than 90%, pulmonary consulted --full code; --DVT prophylaxis Heparin 5000 units subcu every 8 hours for DVT prophylaxis. Pepcid 20 mg p.o. twice daily for GI prophylaxis. We will closely monitor the patient and adjust management as needed Plan of care reviewed with the patient and her nurse I discussed with respiratory therapist, I consulted automation controls expert and discussed patient's condition. Discharge planning; when patient is stable Per case management, home O2 evaluation prior to discharge, Home health services. Advance care planning; I discussed in detail with the patient the importance of adhering to the treatment plan I also informed that patient is requiring high doses of oxygen, that we will set up home O2 After home O2 evaluation, tests and reports discussed with the patient, consultants recommendations discussed with the patient Patient verbalized understanding, will try to contact family as needed . History Interval history: Patient is on high flow oxygen 40 L /75%// 91% O2 sats Hyperkalemia with potassium of 6.2[being corrected] Acute kidney injury with creatinine of 1.7 Probably due to diuretics No overnight events reported by the nursing Patient says she feels slightly better Hospitalist Physical - Constitutional Vitals: Temp Pulse Resp BP Pulse Ox 98.2 F 76 19 84/49 91 03/18/22 05:25 03/18/22 08:00 03/18/22 08:00 03/18/22 05:25 03/18/22 08:00 General appearance: Present: mild distress, well-nourished, obese (Morbidly obese), other (On high flow nasal cannula oxygen 40 L) - EENT Eyes: Present: PERRL, EOM intact - Neck Neck: Present: supple, normal ROM - Respiratory Respiratory effort: normal Respiratory: bilateral: diminished, negative: rales, rhonchi, wheezing - Cardiovascular Rhythm: regular Heart Sounds: Present: S1 & S2 - Extremities Extremities: no ischemia, No edema - Abdominal General gastrointestinal: soft, non-tender, non-distended, other (Obese) - Integumentary Integumentary: Present: clear, warm - Psychiatric Psychiatric: appropriate mood/affect, cooperative - Neurologic Neurologic: moves all extremities, other (Slightly anxious) HEART Score - HEART Score Troponin: Troponin T < 0.010 ng/mL (0.00-0.029) 03/16/22 18:29 Results - Labs CBC & Chem 7: 03/17/22 05:10 03/18/22 05:35 Labs: Laboratory Last Values WBC 9.7 K/mm3 (4.5-11.0) 03/17/22 05:10 RBC 3.71 M/mm3 (3.65-5.03) 03/17/22 05:10 Hgb 8.6 gm/dl (10.1-14.3) L 03/17/22 05:10 Hct 30.3 % (30.3-42.9) 03/17/22 05:10 MCV 82 fl (79-97) 03/17/22 05:10 MCH 23 pg (28-32) L 03/17/22 05:10 MCHC 28 % (30-34) L 03/17/22 05:10 RDW 20.4 % (13.2-15.2) H 03/17/22 05:10 Plt Count 310 K/mm3 (140-440) 03/17/22 05:10 Lymph % (Auto) 11.2 % (13.4-35.0) L 03/17/22 05:10 Lane % (Auto) 15.2 % (0.0-7.3) H 03/17/22 05:10 Eos % (Auto) 0.4 % (0.0-4.3) 03/17/22 05:10 Baso % (Auto) 0.1 % (0.0-1.8) 03/17/22 05:10 Lymph # (Auto) 1.1 K/mm3 (1.2-5.4) L 03/17/22 05:10 Lane # (Auto) 1.5 K/mm3 (0.0-0.8) H 03/17/22 05:10 Eos # (Auto) 0.0 K/mm3 (0.0-0.4) 03/17/22 05:10 Baso # (Auto) 0.0 K/mm3 (0.0-0.1) 03/17/22 05:10 Seg Neutrophils % 73.1 % (40.0-70.0) H 03/17/22 05:10 Seg Neutrophils # 7.1 K/mm3 (1.8-7.7) 03/17/22 05:10 PT 15.9 Sec. (12.2-14.9) H 03/16/22 18:29 INR 1.14 (0.87-1.13) H 03/16/22 18:29 APTT 29.2 Sec. (24.2-36.6) 03/16/22 18:29 ABG pH 7.268 pH Units (7.350-7.450) L 03/16/22 19:35 ABG pCO2 79.5 mm Hg 03/16/22 19:35 ABG pO2 53.0 mm Hg (80.0-90.0) L 03/16/22 19:35 ABG HCO3 35.5 mmol/L (20.0-26.0) H 03/16/22 19:35 ABG O2 Saturation 78.5 % (95.0-99.0) L 03/16/22 19:35 ABG O2 Content 9.5 (0.0-44) 03/16/22 19:35 ABG Base Excess 7.0 mmol/L (-2.0-3.0) H 03/16/22 19:35 ABG Hemoglobin 8.8 gm/dl (12.0-16.0) L 03/16/22 19:35 ABG Carboxyhemoglobin 2.2 % (0.0-5.0) 03/16/22 19:35 ABG Methemoglobin 0.4 % (0.0-1.5) 03/16/22 19:35 Oxyhemoglobin 76.5 % (95.0-99.0) L 03/16/22 19:35 FiO2 21 % 03/16/22 19:35 Sodium 133 mmol/L (137-145) L 03/18/22 05:35 Potassium 6.2 mmol/L (3.6-5.0) H* 03/18/22 05:35 Chloride 92.1 mmol/L (98-107) L 03/18/22 05:35 Carbon Dioxide 31 mmol/L (22-30) H 03/18/22 05:35 Anion Gap 16 mmol/L 03/18/22 05:35 BUN 19 mg/dL (7-17) H 03/18/22 05:35 Creatinine 1.7 mg/dL (0.6-1.2) H D 03/18/22 05:35 Estimated GFR 39 ml/min 03/18/22 05:35 BUN/Creatinine Ratio 11 % 03/18/22 05:35 Glucose 113 mg/dL (65-100) H 03/18/22 05:35 Calcium 8.7 mg/dL (8.4-10.2) 03/18/22 05:35 Phosphorus 6.70 mg/dL (2.5-4.5) H 03/18/22 05:35 Magnesium 2.40 mg/dL (1.7-2.3) H 03/18/22 05:35 Total Bilirubin 0.80 mg/dL (0.1-1.2) 03/18/22 05:35 AST 25 units/L (5-40) 03/18/22 05:35 ALT 15 units/L (7-56) 03/18/22 05:35 Alkaline Phosphatase 80 units/L (35-129) 03/18/22 05:35 Troponin T < 0.010 ng/mL (0.00-0.029) 03/16/22 18:29 NT-Pro-B Natriuret Pep 2855 pg/mL (0-450) H 03/16/22 18:29 Total Protein 7.4 g/dL (6.3-8.2) 03/18/22 05:35 Albumin 3.5 g/dL (3.9-5) L 03/18/22 05:35 Albumin/Globulin Ratio 0.9 % 03/18/22 05:35 Beatty/IV: Voiding Method Indwelling Catheter Active Medications - Current Medications Current Medications: Generic Name Dose Route Start Last Admin Trade Name Freq PRN Reason Stop Dose Admin Acetaminophen 650 mg 03/16/22 21:07 03/18/22 02:32 Acetaminophen 325 Mg Tab PO 650 mg Q4H PRN Administration Pain MILD(1-3)/Fever >100.5/CONSTANTINO Albuterol 2.5 mg 03/16/22 22:12 Albuterol 2.5 Mg/3 Ml Nebu IH Q4HRT PRN Shortness Of Breath Albuterol/Ipratropium 1 ampul 03/17/22 20:00 03/18/22 08:48 Ipratropium/Albuterol Sulfate 3 Ml Ampul.Neb IH 1 ampul QIDRT ARAMIS Administration Dextrose 50 ml 03/18/22 07:12 D5w 50 Ml Ivpb IV 03/18/22 07:13 ONCE ONE Famotidine 20 mg 03/17/22 11:00 03/17/22 21:23 Famotidine 20 Mg Tab PO 20 mg BID ARAMIS Administration Furosemide 40 mg 03/17/22 06:00 03/18/22 05:55 Furosemide 40 Mg/4 Ml Inj IV Not Given BID@0600,1800 [facility] Heparin Sodium (Porcine) 5,000 unit 03/17/22 06:00 03/18/22 06:02 Heparin 5,000 Unit/1 Ml Vial SUB-Q 5,000 unit Q8HR ARAMIS Administration Lisinopril 5 mg 03/17/22 10:00 03/17/22 10:53 Lisinopril 5 Mg Tab PO 5 mg QDAY ARAMIS Administration Methylprednisolone Sodium Succinate 60 mg 03/17/22 22:00 03/18/22 06:02 Methylprednisolone Sod Succinate 125 Mg/2 Ml Inj IV 60 mg Q8HR ARAMIS Administration Morphine Sulfate 2 mg 03/16/22 21:07 Morphine 2 Mg/1 Ml Inj IV Q4H PRN Pain, Moderate (4-6) Morphine Sulfate 4 mg 03/16/22 22:12 Morphine 4 Mg/1 Ml Inj IV Q4H PRN Pain , Severe (7-10) Ondansetron HCl 4 mg 03/16/22 21:07 Ondansetron 4 Mg/2 Ml Inj IV Q8H PRN Nausea And Vomiting Sodium Chloride 10 ml 03/16/22 22:00 03/17/22 21:23 Sodium Chloride 0.9% 10 Ml Flush Syringe IV 10 ml BID ARAMIS Administration Sodium Chloride 10 ml 03/16/22 21:07 03/17/22 11:00 Sodium Chloride 0.9% 10 Ml Flush Syringe IV 10 ml PRN PRN Administration LINE FLUSH Sodium Polystyrene Sulfonate 60 gm 03/18/22 07:10 Sodium Polystyrene 15 Gm/60 Ml Oral Liqd PO 03/18/22 10:00 ONCE NR
--- NOTE | 2022-03-18 09:56 | XRay Report ---
CHEST 1 VIEW 03/18/2022 8:30 AM INDICATION / CLINICAL INFORMATION: f/u respiratory failure. COMPARISON: 03/16/2022 FINDINGS: SUPPORT DEVICES: None. HEART / MEDIASTINUM: There is enlargement of the cardiac silhouette which appears unchanged LUNGS / PLEURA: There is mild perihilar edema. The lungs appear unchanged. No pneumothorax. ADDITIONAL FINDINGS: No significant additional findings. IMPRESSION: 1. No significant change. Signer Name: Darren Rodríguez MD Signed: 03/18/2022 9:52 AM Workstation Name: [employer]
[2022-03-18] MEDS ORDERED: DEXTROSE 50% IN WATER (25GM) 50 ML SYRINGE IV SCH ×2 (11:00→17:30)
[2022-03-18] MEDS ORDERED: INSULIN REGULAR, HUMAN 100 UNITS/1 ML IV SCH ×2 (11:00→17:30)
[2022-03-18] MEDS: FAMOTIDINE 20 MG TAB PO SCH ×2 (11:02→21:08)
[2022-03-18 12:16] LABS: ABG Base Excess 8.1 mmol/L (-2.0-3.0); ABG HCO3 37.8 mmol/L (20.0-26.0); ABG Methemoglobin 0.5 % (0.0-1.5); ABG Oxygen Saturation 96.7 % (95.0-99.0); ABG PCO2 100.3 mm Hg; ABG PO2 88.5 mm Hg (80.0-90.0)
[2022-03-18 12:40] LABS: ABG PH 7.194 pH Units (7.350-7.450)
--- NOTE | 2022-03-18 13:47 | Progress Note ---
Assessment and Plan Patient is a 51-year-old female with a past medical history of asthma, hypertension, morbid obesity who came to the ED for aggressive worsen shortness of breath x4 days. Acute respiratory failure-pulmonology following Right-sided heart failure Hyperkalemia Morbid obesity Obesity hypoventilation syndrome Echo 03/16/2022-EF 55 to 60%. Flattened septum consistent with right ventricular volume and pressure overload. Right ventricle systolic function is normal. Right ventricle is mildly dilated. Mild tricuspid regurgitation. Trace pulmonic regurgitation Plan: Patient creatinine noted to increase today will stop diuresis with Lasix IV Strict I&O's, daily weights, close monitoring of renal function Due to soft BP will hold beta-blockers and MYRON/ARB Echo results noted above Patient very lethargic recommend repeating ABGs this a.m. Patient seen in conjunction with Dr. Moreno who agrees with this plan of care - Patient Problems (1) Acute respiratory failure Current Visit: Yes Status: Acute (2) Asthma Current Visit: Yes Status: Acute (3) Hypoxia Current Visit: Yes Status: Acute (4) Morbid obesity Current Visit: Yes Status: Acute (5) New onset of congestive heart failure Current Visit: Yes Status: Acute Subjective Date of service: 03/18/22 Principal diagnosis: Acute respiratory failure, obesity hypoventilation syndrome Interval history: Patient appears more lethargic this a.m. Sinus 80s on monitor with no events Objective Vital Signs Temp Pulse Pulse Resp Resp BP Pulse Ox 03/18/22 10:17 98.9 F 78 18 93/35 95 03/18/22 10:00 79 20 96 03/18/22 08:00 76 19 91 03/18/22 05:27 80 94 03/18/22 05:25 98.2 F 20 84/49 03/18/22 02:00 95 03/18/22 01:39 88 98 03/18/22 01:37 98.2 F 20 96/56 03/17/22 23:00 95 03/17/22 21:15 95 03/17/22 21:14 89 20 03/17/22 20:19 86 100 03/17/22 20:16 98.2 F 18 95/60 03/17/22 19:33 92 03/17/22 17:38 18 118/53 03/17/22 16:25 89 20 03/17/22 15:22 92 - Physical Examination General: Other (lethargic) HEENT: Positive: PERRL Neck: Positive: trachea midline Cardiac: Positive: Reg Rate and Rhythm Lungs: Positive: Decreased Breath Sounds Neuro: Positive: Grossly Intact Abdomen: Positive: Soft Skin: Negative: Rash Extremities: Present: upper extr. pulses, edema - Labs and Meds Cardiac Enzymes 03/18/22 Range/Units 05:35 AST 25 (5-40) units/L Comprehensive Metabolic Panel 03/17/22 03/18/22 Range/Units 23:05 05:35 Sodium 133 L (137-145) mmol/L Potassium 6.0 H 6.2 H* (3.6-5.0) mmol/L Chloride 92.1 L (98-107) mmol/L Carbon Dioxide 31 H (22-30) mmol/L BUN 19 H (7-17) mg/dL Creatinine 1.7 H D (0.6-1.2) mg/dL Glucose 113 H (65-100) mg/dL Calcium 8.7 (8.4-10.2) mg/dL AST 25 (5-40) units/L ALT 15 (7-56) units/L Alkaline Phosphatase 80 (35-129) units/L Total Protein 7.4 (6.3-8.2) g/dL Albumin 3.5 L (3.9-5) g/dL - Imaging and Cardiology EKG: report reviewed Echo: report reviewed - Telemetry EKG Rhythm: Sinus Rhythm - EKG Sinus rhythms and dysrhythmias: sinus rhythm Repolarization changes or abnormalities: nonspecific abnormality, ST segment, and/or T wave
[2022-03-18] MEDS ORDERED: ETOMIDATE 20 MG/10 ML INJ IV SCH (14:30)
[2022-03-18] MEDS ORDERED: ROCURONIUM 50 MG/5 ML INJ IV SCH (15:00)
--- NOTE | 2022-03-18 15:26 | Consultation ---
History of Present Illness Consult date: 03/18/22 Reason for consult: other (hypercapnic respiratory failure) History of present illness: 51 y/o morbidly obese female transferred to ICU today for hypercapnic respiratory failure and altered mental status. Patient is awake but confused. Able to protect airway so will try bipap. Did not get NIV therapy last night. Documented as being on HFNC at 70%. Past History Past Medical History: hypertension, other (Asthma) Past Surgical History: No surgical history Social history: no significant social history Family history: no significant family history Medications and Allergies Allergies Allergy/AdvReac Type Severity Reaction Status Date / Time No Known Allergies Allergy Verified 03/16/22 21:12 Home Medications Medication Instructions Recorded Confirmed Last Taken Type Albuterol Mdi (or & Nicu Only) 1 puff IH Q4H PRN 03/18/22 03/18/22 Unknown History [ProAir HFA Inhaler] Albuterol Sulfate [Albuterol 0.63% 0.83 mg IH Q4H PRN 03/18/22 03/18/22 Unknown History NEBS] Difluprednate [Durezol] 1 drop OU DAILY 03/18/22 03/18/22 Unknown History Fluticasone/Salmeterol [Advair 1 puff IH BID 03/18/22 03/18/22 Unknown History Diskus 250-50 mcg] Montelukast [Singulair] 10 mg PO QPM 03/18/22 03/18/22 Unknown History Tobramycin/Dexameth 0.1-0.3% 1 drop OS BID 03/18/22 03/18/22 Unknown History [Tobradex] prednisoLONE ACETATE 1% [Pred 1 drop OS QID 03/18/22 03/18/22 Unknown History Forte 1%] Active Meds: Active Medications Acetaminophen (Acetaminophen 325 Mg Tab) 650 mg PO Q4H PRN PRN Reason: Pain MILD(1-3)/Fever >100.5/CONSTANTINO Last Admin: 03/18/22 02:32 Dose: 650 mg Albuterol (Albuterol 2.5 Mg/3 Ml Nebu) 2.5 mg IH Q4HRT PRN PRN Reason: Shortness Of Breath Albuterol/Ipratropium (Ipratropium/Albuterol Sulfate 3 Ml Ampul.Neb) 1 ampul IH QIDRT ARAMIS Last Admin: 03/18/22 14:53 Dose: Not Given Famotidine (Famotidine 20 Mg Tab) 20 mg PO BID [facility] Last Admin: 03/18/22 11:02 Dose: 20 mg Heparin Sodium (Porcine) (Heparin 5,000 Unit/1 Ml Vial) 5,000 unit SUB-Q Q8HR [facility] Last Admin: 03/18/22 14:16 Dose: 5,000 unit Methylprednisolone Sodium Succinate (Methylprednisolone Sod Succinate 125 Mg/2 Ml Inj) 60 mg IV Q8HR [facility] Last Admin: 03/18/22 14:16 Dose: 60 mg Morphine Sulfate (Morphine 2 Mg/1 Ml Inj) 2 mg IV Q4H PRN PRN Reason: Pain, Moderate (4-6) Morphine Sulfate (Morphine 4 Mg/1 Ml Inj) 4 mg IV Q4H PRN PRN Reason: Pain , Severe (7-10) Ondansetron HCl (Ondansetron 4 Mg/2 Ml Inj) 4 mg IV Q8H PRN PRN Reason: Nausea And Vomiting Sodium Chloride (Sodium Chloride 0.9% 10 Ml Flush Syringe) 10 ml IV BID [facility] Last Admin: 03/18/22 11:02 Dose: 10 ml Sodium Chloride (Sodium Chloride 0.9% 10 Ml Flush Syringe) 10 ml IV PRN PRN PRN Reason: LINE FLUSH Last Admin: 03/17/22 11:00 Dose: 10 ml Review of Systems ROS unobtainable: due to mental status All systems: negative Physical Examination Vital signs: Vital Signs Temp Pulse Resp BP Pulse Ox 98.8 F 89 18 97/45 86 03/16/22 17:26 03/16/22 17:26 03/16/22 17:26 03/16/22 17:26 03/16/22 17:26 General appearance: other (morbidly, morbidly obese) ENT: oropharynx dry Neck: other (neck cir is greater than 30) Effort: mildly labored Ascultation: Bilateral: diminished breath sounds Percussion: Bilateral: not dull Cardiovascular: regular rate and rhythm Gastrointestinal: normoactive bowel sounds Extremities: anasarca Results - Laboratory Findings CBC and BMP: 03/17/22 05:10 03/18/22 05:35 ABG ABG pH 7.194 pH Units (7.350-7.450) L* 03/18/22 12:00 ABG pCO2 100.3 mm Hg 03/18/22 12:00 ABG pO2 88.5 mm Hg (80.0-90.0) 03/18/22 12:00 ABG O2 Saturation 96.7 % (95.0-99.0) 03/18/22 12:00 PT/INR, D-dimer PT 15.9 Sec. (12.2-14.9) H 03/16/22 18:29 INR 1.14 (0.87-1.13) H 03/16/22 18:29 Abnormal lab findings: Abnormal Labs 03/16/22 03/16/22 03/16/22 18:29 18:29 18:29 Hgb 8.6 L Hct 29.4 L MCH 23 L MCHC 29 L RDW 20.0 H Lymph % (Auto) [place] % (Auto) 13.9 H Lymph # (Auto) [place] # (Auto) 1.2 H Seg Neutrophils % PT 15.9 H INR 1.14 H ABG pH ABG pO2 ABG HCO3 ABG O2 Saturation ABG Base Excess ABG Hemoglobin Oxyhemoglobin Sodium 132 L Potassium 5.2 H Chloride 90.9 L Carbon Dioxide 33 H BUN Creatinine Glucose Calcium Phosphorus Magnesium NT-Pro-B Natriuret Pep 2855 H Albumin 3.7 L 03/16/22 03/17/22 03/17/22 19:35 05:10 05:10 Hgb 8.6 L Hct MCH 23 L MCHC 28 L RDW 20.4 H Lymph % (Auto) 11.2 L [place] % (Auto) 15.2 H Lymph # (Auto) 1.1 L [place] # (Auto) 1.5 H Seg Neutrophils % 73.1 H PT INR ABG pH 7.268 L ABG pO2 53.0 L ABG HCO3 35.5 H ABG O2 Saturation 78.5 L ABG Base Excess 7.0 H ABG Hemoglobin 8.8 L Oxyhemoglobin 76.5 L Sodium 134 L Potassium 6.3 H* D Chloride 93.9 L Carbon Dioxide 37 H BUN Creatinine Glucose Calcium 8.3 L Phosphorus Magnesium NT-Pro-B Natriuret Pep Albumin 03/17/22 03/18/22 03/18/22 23:05 05:35 12:00 Hgb Hct MCH MCHC RDW Lymph % (Auto) [place] % (Auto) Lymph # (Auto) [place] # (Auto) Seg Neutrophils % PT INR ABG pH 7.194 L* ABG pO2 ABG HCO3 37.8 H ABG O2 Saturation ABG Base Excess 8.1 H ABG Hemoglobin 8.0 L Oxyhemoglobin 94.4 L Sodium 133 L Potassium 6.0 H 6.2 H* Chloride 92.1 L Carbon Dioxide 31 H BUN 19 H Creatinine 1.7 H D Glucose 113 H Calcium Phosphorus 6.70 H Magnesium 2.40 H 2.40 H NT-Pro-B Natriuret Pep Albumin 3.5 L - Diagnostic Findings Chest x-ray: image reviewed Assessment and Plan 51 y/o morbidly obese female with acute hypoxic hypercapnic respiratory failure. 1. Continuous bipap therapy 2. Repeat ABG in about 1-2 hours 3. NPO 4. Hold on diuretic therapy, need to repeat chemistry. 5. If given a break on bipap, must be put back on tonight 6. Consider Bariatric surgery evaluation as outpatient 7. Guarded prognosis.
[2022-03-18] MEDS ORDERED: CALCIUM GLUCONATE 2,000 MG in SODIUM CHLORIDE 0.9% 100 ML IV ONE (17:19)
[2022-03-18 17:38] LABS: ABG Base Excess 8.1 mmol/L (-2.0-3.0); ABG Methemoglobin 0.4 % (0.0-1.5); ABG Oxygen Saturation 95.2 % (95.0-99.0); ABG PCO2 87.1 mm Hg; ABG PH 7.246 pH Units (7.350-7.450); ABG PO2 77.6 mm Hg (80.0-90.0)
[2022-03-18] MEDS ORDERED: CALC GLUCONATE 1GM/NS 100 ML 1 GM/100 ML BAG IV ONE ×2 (18:00→18:30)
--- NOTE | 2022-03-18 18:48 | Event Note ---
Date: 03/18/22 Patient's potassium 6.2, advised calcium gluconate 2 g IV x1, insulin 6 units IV x1 followed by IV D50 x1 Repeat potassium levels after 6 hours, closely monitor
[2022-03-19] MEDS ORDERED: SODIUM CHLORIDE 0.9% 1000 ML 1,000 ML ONE (02:07)
[2022-03-19 05:33] LABS: Calcium 8.8 mg/dL (8.4-10.2)
[2022-03-19] MEDS ORDERED: SODIUM POLYSTYRENE 15 GM/60 ML ORAL LIQD PO ONE (05:58)
[2022-03-19] MEDS: methylPREDNISolone Sod Succinate 125 MG/2 ML INJ IV SCH ×3 (06:34→21:09)
[2022-03-19] MEDS: HEPARIN 5,000 UNIT/1 ML VIAL SUB-Q SCH ×3 (06:34→21:10)
[2022-03-19] MEDS: IPRATROPIUM/ALBUTEROL SULFATE 3 ML AMPUL.NEB IH SCH ×2 (08:06→15:05)
--- NOTE | 2022-03-19 09:23 | Consultation ---
History of Present Illness - Reason for Consult Consult date: 03/19/22 acute renal failure - History of Present Illness 51 year old morbidly obese who presents with hypercapnic respiratory failure and altered mental status. She is on Bipap at time of consult. History obtained from chart review- renal indices noted to be worsening overnight with hyperkalemia this AM. Unable to obtain additional history due to patient condition. Past History Past Medical History: hypertension, other (Asthma) Past Surgical History: No surgical history Social history: no significant social history Family history: no significant family history Medications and Allergies Allergies Allergy/AdvReac Type Severity Reaction Status Date / Time Sulfa (Sulfonamide AdvReac Severe "Eyes Verified 03/18/22 16:52 Antibiotics) Breakout" Home Medications Medication Instructions Recorded Confirmed Last Taken Type Albuterol Mdi (or & Nicu Only) 1 puff IH Q4H PRN 03/18/22 03/18/22 Unknown History [ProAir HFA Inhaler] Albuterol Sulfate [Albuterol 0.63% 0.83 mg IH Q4H PRN 03/18/22 03/18/22 Unknown History NEBS] Difluprednate [Durezol] 1 drop OU DAILY 03/18/22 03/18/22 Unknown History Fluticasone/Salmeterol [Advair 1 puff IH BID 03/18/22 03/18/22 Unknown History Diskus 250-50 mcg] Montelukast [Singulair] 10 mg PO QPM 03/18/22 03/18/22 Unknown History Tobramycin/Dexameth 0.1-0.3% 1 drop OS BID 03/18/22 03/18/22 Unknown History [Tobradex] prednisoLONE ACETATE 1% [Pred 1 drop OS QID 03/18/22 03/18/22 Unknown History Forte 1%] Active Meds: Active Medications Albuterol/Ipratropium (Ipratropium/Albuterol Sulfate 3 Ml Ampul.Neb) 1 ampul IH QIDRT [facility] Last Admin: 03/19/22 08:06 Dose: 1 ampul Famotidine (Famotidine 20 Mg Tab) 20 mg PO BID [facility] Last Admin: 03/18/22 21:08 Dose: Not Given Heparin Sodium (Porcine) (Heparin 5,000 Unit/1 Ml Vial) 5,000 unit SUB-Q Q8HR [facility] Last Admin: 03/19/22 06:34 Dose: 5,000 unit Methylprednisolone Sodium Succinate (Methylprednisolone Sod Succinate 125 Mg/2 Ml Inj) 60 mg IV Q8HR [facility] Last Admin: 03/19/22 06:34 Dose: 60 mg Review of Systems ROS unobtainable: due to mental status Exam - Vital Signs Vital signs: Vital Signs Temp Pulse Resp BP Pulse Ox 98.8 F 89 18 97/45 86 03/16/22 17:26 03/16/22 17:26 03/16/22 17:26 03/16/22 17:03/16/22 17:26 - Physical Exam Narrative exam: Constitutional: no acute distress, on Bipap Head: NC/AT Neck: supple Lungs: coarse lungs sounds CV: RRR, no M/R/G Abdomen: soft, non-tender, bowel sounds present Back: nontender Extremities: no edema, pulses WNL Skin: intact Neuro: altered Results - Lab Results 03/17/22 05:10 03/19/22 04:38 Most recent lab results ABG pH 7.246 pH Units (7.350-7.450) L 03/18/22 17:23 ABG pCO2 87.1 mm Hg 03/18/22 17:23 ABG pO2 77.6 mm Hg (80.0-90.0) L 03/18/22 17:23 ABG HCO3 37.0 mmol/L (20.0-26.0) H 03/18/22 17:23 ABG O2 Saturation 95.2 % (95.0-99.0) 03/18/22 17:23 Calcium 8.8 mg/dL (8.4-10.2) 03/19/22 04:38 Phosphorus 6.70 mg/dL (2.5-4.5) H 03/18/22 05:35 Magnesium 2.50 mg/dL (1.7-2.3) H 03/18/22 16:32 Assessment and Plan # Acute Kidney Injury: suspect STEPHEN in setting of cardiorenal changes, potential overdiuresis? Certainly risk for tubular injury with soft BPs. - urine lytes noted, check urinalysis, UP/C - check serologies for GN consideration - renal ultrasound WNL - maintain MAP >70, agree to hold antihypertensives - avoid nephrotoxins - renally dose medications - agree to hold diuretics for now, use prn only- agree to avoid IVF - strict Is/Os - no immediate need for renal replacement therapy # Hyperkalemia: continue medical management, holding MYRON-I. If persistent with worsening renal function, will need dialysis # Respiratory Alkalosis: Bipap per pulm # CHF: note EF 50-60% # Hyponatremia: mild, may be related to volume, follow for now # Anemia, Microcytic: follow hemoglobin
[2022-03-19] MEDS: FAMOTIDINE 20 MG TAB PO SCH ×2 (09:49→21:10)
--- NOTE | 2022-03-19 11:13 | Progress Note ---
Assessment and Plan 51 y/o morbidly obese female with acute hypoxic hypercapnic respiratory failure. 03/19/22: Transfer back to floor or IMCU. Follow up renal ultrasound. Would not suggest IVF. If pre renal would allow patient to correct on her own 1. Continuous bipap therapy 2. Repeat ABG in about 1-2 hours 3. NPO 4. Hold on diuretic therapy, need to repeat chemistry. 5. If given a break on bipap, must be put back on tonight 6. Consider Bariatric surgery evaluation as outpatient 7. Guarded prognosis. Subjective Date of service: 03/19/22 Principal diagnosis: Acute respiratory failure, obesity hypoventilation syndrome Interval history: Awake and alert. On Bipap. Objective Vital Signs - 12hr 03/18/22 03/18/22 03/19/22 23:22 23:45 00:00 Temperature 98.4 F Pulse Rate 81 80 81 Pulse Rate [ Bilateral Throughout] Pulse Rate [ From Monitor] Respiratory 15 21 16 Rate Respiratory Rate [Bilateral Throughout] Blood Pressure 126/71 126/71 129/57 O2 Sat by Pulse 94 95 99 Oximetry 03/19/22 03/19/22 03/19/22 01:00 02:00 03:00 Temperature Pulse Rate 80 80 82 Pulse Rate [ Bilateral Throughout] Pulse Rate [ From Monitor] Respiratory 16 10 L 20 Rate Respiratory Rate [Bilateral Throughout] Blood Pressure 110/53 93/51 116/60 O2 Sat by Pulse 100 100 91 Oximetry 03/19/22 03/19/22 03/19/22 04:00 04:17 05:00 Temperature 98 F Pulse Rate 78 82 82 Pulse Rate [ Bilateral Throughout] Pulse Rate [ From Monitor] Respiratory 20 20 16 Rate Respiratory Rate [Bilateral Throughout] Blood Pressure 95/45 95/45 102/67 O2 Sat by Pulse 100 100 99 Oximetry 03/19/22 03/19/22 03/19/22 06:00 07:00 07:30 Temperature 98.8 F Pulse Rate 70 79 Pulse Rate [ Bilateral Throughout] Pulse Rate [ From Monitor] Respiratory 15 21 Rate Respiratory Rate [Bilateral Throughout] Blood Pressure 111/41 107/70 O2 Sat by Pulse 97 97 Oximetry 03/19/22 03/19/22 03/19/22 07:31 08:00 08:02 Temperature Pulse Rate 80 79 79 Pulse Rate [ 80 Bilateral Throughout] Pulse Rate [ 80 From Monitor] Respiratory 18 14 20 Rate Respiratory 20 Rate [Bilateral Throughout] Blood Pressure 111/41 89/68 O2 Sat by Pulse 96 99 100 Oximetry 03/19/22 03/19/22 03/19/22 09:00 10:00 10:46 Temperature Pulse Rate 84 81 Pulse Rate [ Bilateral Throughout] Pulse Rate [ From Monitor] Respiratory 14 18 Rate Respiratory Rate [Bilateral Throughout] Blood Pressure 100/47 100/56 O2 Sat by Pulse 99 100 99 Oximetry Constitutional: other (morbidly, morbidly obese) ENT: oropharynx dry Neck: other (neck cir is greater than 30) Effort: mildly labored Ascultation: Bilateral: diminished breath sounds Percussion: Bilateral: not dull Cardiovascular: regular rate and rhythm Gastrointestinal: normoactive bowel sounds Extremities: anasarca CBC and BMP: 03/17/22 05:10 03/19/22 04:38 ABG, PT/INR, D-dimer: ABG ABG pH 7.246 pH Units (7.350-7.450) L 03/18/22 17:23 ABG pCO2 87.1 mm Hg 03/18/22 17:23 ABG pO2 77.6 mm Hg (80.0-90.0) L 03/18/22 17:23 ABG O2 Saturation 95.2 % (95.0-99.0) 03/18/22 17:23 PT/INR, D-dimer PT 15.9 Sec. (12.2-14.9) H 03/16/22 18:29 INR 1.14 (0.87-1.13) H 03/16/22 18:29 Abnormal lab findings: Abnormal Labs 03/16/22 03/16/22 03/16/22 18:29 18:29 18:29 Hgb 8.6 L Hct 29.4 L MCH 23 L MCHC 29 L RDW 20.0 H Lymph % (Auto) [place] % (Auto) 13.9 H Lymph # (Auto) [place] # (Auto) 1.2 H Seg Neutrophils % PT 15.9 H INR 1.14 H ABG pH ABG pO2 ABG HCO3 ABG O2 Saturation ABG Base Excess ABG Hemoglobin Oxyhemoglobin Sodium 132 L Potassium 5.2 H Chloride 90.9 L Carbon Dioxide 33 H BUN Creatinine Glucose POC Glucose Calcium Phosphorus Magnesium NT-Pro-B Natriuret Pep 2855 H Albumin 3.7 L 03/16/22 03/17/22 03/17/22 19:35 05:10 05:10 Hgb 8.6 L Hct MCH 23 L MCHC 28 L RDW 20.4 H Lymph % (Auto) 11.2 L [place] % (Auto) 15.2 H Lymph # (Auto) 1.1 L [place] # (Auto) 1.5 H Seg Neutrophils % 73.1 H PT INR ABG pH 7.268 L ABG pO2 53.0 L ABG HCO3 35.5 H ABG O2 Saturation 78.5 L ABG Base Excess 7.0 H ABG Hemoglobin 8.8 L Oxyhemoglobin 76.5 L Sodium 134 L Potassium 6.3 H* D Chloride 93.9 L Carbon Dioxide 37 H BUN Creatinine Glucose POC Glucose Calcium 8.3 L Phosphorus Magnesium NT-Pro-B Natriuret Pep Albumin 03/17/22 03/18/22 03/18/22 23:05 05:35 12:00 Hgb Hct MCH MCHC RDW Lymph % (Auto) [place] % (Auto) Lymph # (Auto) [place] # (Auto) Seg Neutrophils % PT INR ABG pH 7.194 L* ABG pO2 ABG HCO3 37.8 H ABG O2 Saturation ABG Base Excess 8.1 H ABG Hemoglobin 8.0 L Oxyhemoglobin 94.4 L Sodium 133 L Potassium 6.0 H 6.2 H* Chloride 92.1 L Carbon Dioxide 31 H BUN 19 H Creatinine 1.7 H D Glucose 113 H POC Glucose Calcium Phosphorus 6.70 H Magnesium 2.40 H 2.40 H NT-Pro-B Natriuret Pep Albumin 3.5 L 03/18/22 03/18/22 03/18/22 16:32 17:23 18:01 Hgb Hct MCH MCHC RDW Lymph % (Auto) [place] % (Auto) Lymph # (Auto) [place] # (Auto) Seg Neutrophils % PT INR ABG pH 7.246 L ABG pO2 77.6 L ABG HCO3 37.0 H ABG O2 Saturation ABG Base Excess 8.1 H ABG Hemoglobin 8.1 L Oxyhemoglobin 93.1 L Sodium Potassium 6.2 H* Chloride Carbon Dioxide BUN Creatinine Glucose POC Glucose 114 H Calcium Phosphorus Magnesium 2.50 H NT-Pro-B Natriuret Pep Albumin 03/18/22 03/19/22 03/19/22 18:48 01:16 04:38 Hgb Hct MCH MCHC RDW Lymph % (Auto) [place] % (Auto) Lymph # (Auto) [place] # (Auto) Seg Neutrophils % PT INR ABG pH ABG pO2 ABG HCO3 ABG O2 Saturation ABG Base Excess ABG Hemoglobin Oxyhemoglobin Sodium 133 L Potassium 5.9 H Chloride 92.4 L Carbon Dioxide 33 H BUN 32 H Creatinine 2.3 H Glucose 111 H POC Glucose 136 H 114 H Calcium Phosphorus Magnesium NT-Pro-B Natriuret Pep Albumin
[2022-03-19] MEDS ORDERED: ARFORMOTEROL 15 MCG/2 ML NEBU IH SCH (12:00)
[2022-03-19 12:07] LABS: Creatinine,Urine 249.2 mg/dL (0.1-20.0)
--- NOTE | 2022-03-19 13:44 | Progress Note ---
Assessment and Plan Assessment and plan: This is a 51-year-old female with asthma, HTN, morbid obesity admitted with new onset CHF with exacerbation and acute hypoxic and hypercapnic respiratory failure Neuro: NAD -Reorientation as needed -Maintain sleep-wake cycle -As needed analgesia Cardiac: New Onset Congestive Heart failure, h/o HTN -Cardiology consulted, appreciate recommendations -Admit proBNP 2855 -Blood pressure monitoring per protocol -S/p diuresis with Lasix -Echocardiogram shows EF 55 to 60%. Flattened septum consistent with right ventricular volume and pressure overload. Respiratory: Acute hypoxic hypercapnic respiratory failure, Obesity hypoventilation syndrome, h/o asthma -CCM consulted, appreciate recommendations -BiPAP therapy -Pulmonary hygiene -SPO2 monitor per protocol -Brov[place] Pulmicort -Steroids -Outpatient follow-up with pulmonology for PFTs GI: Morbid Obesity -PPI -CC diet -Lifestyle and dietary modifications strongly encouraged : Acute kidney injury likely secondary to vasomotor nephropathy, hyperkalemia, hyperphosphatemia -Nephrology consulted, appreciate recommendations -Monitor intake and output -Renally dose medications -Avoid nephrotoxic medications -03/19 FeNa 0.01% -Renal ultrasound pending -Trend BMP -Kayexalate ID: NAD -Monitor WBC and temperature curve Endo: NAD -Avoid hypoglycemia -SSI -Accu-Cheks q. 6 while n.p.o. Heme: NAD -Trend CBC -Transfuse hemoglobin less than 7 -SCDs to BLE while in bed The high probability of a clinically significant, sudden or life threatening deterioration of the [pulm/cardio] system(s) required my full and direct attention, intervention and personal management. The aggregate critical care time was [60] minutes. This time is in addition to time spent performing reported procedures but includes the following: [x] Data Review and interpretation [x] Patient assessment and monitoring of vital signs [x] Documentation [x] Medication orders and management Disposition Plan: transfer to floor Total Time Spent with Patient (Minutes): 60 History Interval history: This is 51 year old female with asthma, hypertension, morbid obesity who present ed to emergency department on 03/16 with shortness of breath over the past 2 to 3 weeks, occasional appropriate adductive cough of white sputum and orthopnea. In the emergency department ABG was 7.268, 79.5, 53.0, 35.5 on 78% SPO2, CXR compatible with CHF exacerbation and proBNP was 2055. Patient was placed on BiPAP and given Lasix, nebulized breathing treatments and admitted to the hospital service with consults to cardiology. Hospital course to date: 03/17: Pulmonology consulted, remains on BiPAP 03/18: Hyperkalemia 6.2 corrected with Kayexalate and insulin and dextrose, acute kidney injury probably secondary to overdiuresis and lisinopril discontinued, patient was on high flow nasal cannula but was transferred to ICU on BiPAP therapy for possible intubation. Intubation did not occur. 03/19: Remains on BiPAP, hyperkalemia corrected, worsening renal function t herefore nephrology was consulted. Patient will be transferred back to the floor. Hospitalist Physical - Constitutional Vitals: Temp Pulse Resp BP Pulse Ox 98 F 89 20 114/61 94 03/19/22 11:24 03/19/22 13:00 03/19/22 13:00 03/19/22 13:00 03/19/22 13:00 General appearance: Present: well-nourished, obese (Morbidly obese), other (bipap) - EENT Eyes: Present: PERRL, EOM intact ENT: hearing intact, clear oral mucosa, dentition normal - Neck Neck: Present: normal ROM - Respiratory Respiratory effort: normal Respiratory: bilateral: diminished - Cardiovascular Rhythm: regular Heart Sounds: Present: S1 & S2. Absent: systolic murmur, diastolic murmur - Extremities Extremities: no ischemia, pulses intact, pulses symmetrical, No edema, normal temperature, normal color Peripheral Pulses: within normal limits - Abdominal General gastrointestinal: soft, non-tender, non-distended, normal bowel sounds - Integumentary Integumentary: Present: warm, dry - Psychiatric Psychiatric: cooperative - Neurologic Neurologic: CNII-XII intact, no focal deficits, moves all extremities - Allied Health Allied health notes reviewed: nursing, RT, social work HEART Score - HEART Score Troponin: Troponin T < 0.010 ng/mL (0.00-0.029) 03/16/22 18:29 Results - Labs CBC & Chem 7: 03/17/22 05:10 03/19/22 04:38 Labs: Laboratory Last Values WBC 9.7 K/mm3 (4.5-11.0) 03/17/22 05:10 RBC 3.71 M/mm3 (3.65-5.03) 03/17/22 05:10 Hgb 8.6 gm/dl (10.1-14.3) L 03/17/22 05:10 Hct 30.3 % (30.3-42.9) 03/17/22 05:10 MCV 82 fl (79-97) 03/17/22 05:10 MCH 23 pg (28-32) L 03/17/22 05:10 MCHC 28 % (30-34) L 03/17/22 05:10 RDW 20.4 % (13.2-15.2) H 03/17/22 05:10 Plt Count 310 K/mm3 (140-440) 03/17/22 05:10 Lymph % (Auto) 11.2 % (13.4-35.0) L 03/17/22 05:10 [place] % (Auto) 15.2 % (0.0-7.3) H 03/17/22 05:10 Eos % (Auto) 0.4 % (0.0-4.3) 03/17/22 05:10 Baso % (Auto) 0.1 % (0.0-1.8) 03/17/22 05:10 Lymph # (Auto) 1.1 K/mm3 (1.2-5.4) L 03/17/22 05:10 [place] # (Auto) 1.5 K/mm3 (0.0-0.8) H 03/17/22 05:10 Eos # (Auto) 0.0 K/mm3 (0.0-0.4) 03/17/22 05:10 Baso # (Auto) 0.0 K/mm3 (0.0-0.1) 03/17/22 05:10 Seg Neutrophils % 73.1 % (40.0-70.0) H 03/17/22 05:10 Seg Neutrophils # 7.1 K/mm3 (1.8-7.7) 03/17/22 05:10 PT 15.9 Sec. (12.2-14.9) H 03/16/22 18:29 INR 1.14 (0.87-1.13) H 03/16/22 18:29 APTT 29.2 Sec. (24.2-36.6) 03/16/22 18:29 ABG pH 7.246 pH Units (7.350-7.450) L 03/18/22 17:23 ABG pCO2 87.1 mm Hg 03/18/22 17:23 ABG pO2 77.6 mm Hg (80.0-90.0) L 03/18/22 17:23 ABG HCO3 37.0 mmol/L (20.0-26.0) H 03/18/22 17:23 ABG O2 Saturation 95.2 % (95.0-99.0) 03/18/22 17: ABG O2 Content 10.8 (0.0-44) 03/18/22 17: ABG Base Excess 8.1 mmol/L (-2.0-3.0) H 03/18/22 17: ABG Hemoglobin 8.1 gm/dl (12.0-16.0) L 03/18/22 17:23 ABG Carboxyhemoglobin 1.7 % (0.0-5.0) 03/18/22 17: ABG Methemoglobin 0.4 % (0.0-1.5) 03/18/22 17: Oxyhemoglobin 93.1 % (95.0-99.0) L 03/18/22 17: FiO2 40 % 03/18/22 17:23 Sodium 133 mmol/L (137-145) L 03/19/22 04:38 Potassium 5.9 mmol/L (3.6-5.0) H 03/19/22 04:38 Chloride 92.4 mmol/L (98-107) L 03/19/22 04:38 Carbon Dioxide 33 mmol/L (22-30) H 03/19/22 04:38 Anion Gap 14 mmol/L 03/19/22 04:38 BUN 32 mg/dL (7-17) H 03/19/22 04:38 Creatinine 2.3 mg/dL (0.6-1.2) H 03/19/22 04:38 Estimated GFR 27 ml/min 03/19/22 04:38 BUN/Creatinine Ratio 14 % 03/19/22 04:38 Glucose 111 mg/dL (65-100) H 03/19/22 04:38 POC Glucose 114 mg/dL (70-105) H 03/19/22 01:16 Calcium 8.8 mg/dL (8.4-10.2) 03/19/22 04:38 Phosphorus 6.70 mg/dL (2.5-4.5) H 03/18/22 05:35 Magnesium 2.50 mg/dL (1.7-2.3) H 03/18/22 16:32 Total Bilirubin 0.80 mg/dL (0.1-1.2) 03/18/22 05:35 AST 25 units/L (5-40) 03/18/22 05:35 ALT 15 units/L (7-56) 03/18/22 05:35 Alkaline Phosphatase 80 units/L (35-129) 03/18/22 05:35 Troponin T < 0.010 ng/mL (0.00-0.029) 03/16/22 18:29 NT-Pro-B Natriuret Pep 2855 pg/mL (0-450) H 03/16/22 18:29 Total Protein 7.4 g/dL (6.3-8.2) 03/18/22 05:35 Albumin 3.5 g/dL (3.9-5) L 03/18/22 05:35 Albumin/Globulin Ratio 0.9 % 03/18/22 05:35 Urine Creatinine 249.2 mg/dL (0.1-20.0) H 03/19/22 09:30 Urine Sodium 10 mmol/L 03/19/22 09:30 Urine Urea Nitrogen 413 03/19/22 09:30 Beatty/IV: Voiding Method Indwelling Catheter Active Medications - Current Medications Current Medications: Generic Name Dose Route Start Last Admin Trade Name Freq PRN Reason Stop Dose Admin Albuterol/Ipratropium 1 ampul 03/17/22 20:00 03/19/22 08:06 Ipratropium/Albuterol Sulfate 3 Ml Ampul.Neb IH 1 ampul QIDRT ARAMIS Administration Arformoterol Tartrate 15 mcg 03/19/22 12:00 Arformoterol 15 Mcg/2 Ml Nebu IH Q12HRT ARAMIS Budesonide 0.5 mg 03/19/22 12:00 Budesonide 0.5 Mg/2 Ml Nebu IH Q12HRT ARAMIS Famotidine 20 mg 03/17/22 11:00 03/19/22 09:49 Famotidine 20 Mg Tab PO 20 mg BID ARAMIS Administration Heparin Sodium (Porcine) 5,000 unit 03/17/22 06:00 03/19/22 06:34 Heparin 5,000 Unit/1 Ml Vial SUB-Q 5,000 unit Q8HR ARAMIS Administration Methylprednisolone Sodium Succinate 60 mg 03/17/22 22:00 03/19/22 06:34 Methylprednisolone Sod Succinate 125 Mg/2 Ml Inj IV 60 mg Q8HR ARAMIS Administration
--- NOTE | 2022-03-19 13:57 | Progress Note ---
Assessment and Plan Patient is a 51-year-old female with a past medical history of asthma, hypertension, morbid obesity who came to the ED for aggressive worsen shortness of breath x4 days. Acute respiratory failure-pulmonology following Right-sided heart failure STEPHEN-nephrology following Hyperkalemia Morbid obesity Obesity hypoventilation syndrome Echo 03/16/2022-EF 55 to 60%. Flattened septum consistent with right ventricular volume and pressure overload. Right ventricle systolic function is normal. Right ventricle is mildly dilated. Mild tricuspid regurgitation. Trace pulmonic regurgitation Plan: Lasix continues to be held as per pulm Strict I&O's, daily weights, close monitoring of renal function Due to soft BP will hold beta-blockers and MYRON/ARB Echo results noted above Cardiac status appears otherwise stable. Will see as needed Patient seen in conjunction with Dr. Erickson who agrees with this plan of care - Patient Problems (1) Acute respiratory failure Current Visit: Yes Status: Acute (2) Asthma Current Visit: Yes Status: Acute (3) Hypoxia Current Visit: Yes Status: Acute (4) Morbid obesity Current Visit: Yes Status: Acute (5) New onset of congestive heart failure Current Visit: Yes Status: Acute Subjective Date of service: 03/19/22 Principal diagnosis: Acute respiratory failure, obesity hypoventilation syndrome Interval history: Patient appears more alert this a.m. Patient transferred to ICU yesterday due to respiratory failure Sinus 80s on monitor with no events Objective Vital Signs Temp Pulse Pulse Pulse Resp Resp BP 03/19/22 13:00 89 20 114/61 03/19/22 12:00 83 23 115/65 03/19/22 11:26 81 14 03/19/22 11:24 98 F 81 03/19/22 11:00 82 11 L 100/56 03/19/22 10:46 03/19/22 10:00 81 18 100/56 03/19/22 09:00 84 14 100/47 03/19/22 08:02 79 20 89/68 03/19/22 08:00 79 80 14 20 111/41 03/19/22 07:31 80 80 18 03/19/22 07:30 98.8 F 03/19/22 07:00 79 21 107/70 03/19/22 06:00 70 15 111/41 03/19/22 05:00 82 16 102/67 03/19/22 04:17 82 20 95/45 03/19/22 04:00 98 F 78 20 95/45 03/19/22 03:00 82 20 116/60 03/19/22 02:00 80 10 L 93/51 03/19/22 01:00 80 16 110/53 03/19/22 00:00 98.4 F 81 16 129/57 03/18/22 23:45 80 21 126/71 03/18/22 23:22 81 15 126/71 03/18/22 23:00 84 19 126/71 03/18/22 22:00 80 16 118/60 03/18/22 21:00 80 20 108/57 03/18/22 20:00 98.1 F 77 20 108/57 03/18/22 19:42 03/18/22 19:41 81 21 131/81 03/18/22 19:40 83 21 03/18/22 19:00 82 11 L 110/62 03/18/22 18:21 98.9 F 03/18/22 18:10 74 10 L 110/62 03/18/22 18:00 79 13 110/62 03/18/22 17:50 76 18 126/89 03/18/22 17:40 79 20 126/89 03/18/22 17:30 80 11 L 126/89 03/18/22 17:20 80 12 126/89 03/18/22 17:10 82 17 126/89 03/18/22 17:00 80 12 126/89 03/18/22 16:50 82 17 106/84 03/18/22 16:40 83 16 106/84 03/18/22 16:30 78 11 L 106/84 03/18/22 16:20 80 14 106/84 03/18/22 16:10 79 11 L 106/84 03/18/22 16:00 79 80 34 H 105/50 03/18/22 15:50 77 28 H 105/50 03/18/22 15:40 78 31 H 105/50 03/18/22 15:30 78 24 105/50 03/18/22 15:29 03/18/22 15:20 78 27 H 105/50 03/18/22 15:10 78 29 H 105/50 03/18/22 15:00 77 21 99/78 03/18/22 14:50 81 27 H 99/78 03/18/22 14:44 80 Pulse Ox 03/19/22 13:00 94 03/19/22 12:00 90 03/19/22 11:26 98 03/19/22 11:24 03/19/22 11:00 97 03/19/22 10:46 99 03/19/22 10:00 100 03/19/22 09:00 99 03/19/22 08:02 100 03/19/22 08:00 99 03/19/22 07:31 96 03/19/22 07:30 03/19/22 07:00 97 03/19/22 06:00 97 03/19/22 05:00 99 03/19/22 04:17 100 03/19/22 04:00 100 03/19/22 03:00 91 03/19/22 02:00 100 03/19/22 01:00 100 03/19/22 00:00 99 03/18/22 23:45 95 03/18/22 23:22 94 03/18/22 23:00 92 03/18/22 22:00 75 L 03/18/22 21:00 96 03/18/22 20:00 96 03/18/22 19:42 100 03/18/22 19:41 100 03/18/22 19:40 03/18/22 19:00 95 03/18/22 18:21 03/18/22 18:10 93 03/18/22 18:00 94 03/18/22 17:50 99 03/18/22 17:40 98 03/18/22 17:30 03/18/22 17:20 97 03/18/22 17:10 98 03/18/22 17:00 92 03/18/22 16:50 91 03/18/22 16:40 87 03/18/22 16:30 93 03/18/22 16:20 87 03/18/22 16:10 80 L 03/18/22 16:00 86 03/18/22 15:50 92 03/18/22 15:40 93 03/18/22 15:30 90 03/18/22 15:29 94 03/18/22 15:20 93 03/18/22 15:10 94 03/18/22 15:00 94 03/18/22 14:50 95 03/18/22 14:44 94 - Physical Examination General: No Apparent Distress HEENT: Positive: PERRL Neck: Positive: trachea midline Cardiac: Positive: Reg Rate and Rhythm Lungs: Positive: Decreased Breath Sounds Neuro: Positive: Grossly Intact Abdomen: Positive: Soft Skin: Negative: Rash Extremities: Present: upper extr. pulses, edema - Labs and Meds Comprehensive Metabolic Panel 03/18/22 03/19/22 Range/Units 16:32 04:38 Sodium 133 L (137-145) mmol/L Potassium 6.2 H* 5.9 H (3.6-5.0) mmol/L Chloride 92.4 L (98-107) mmol/L Carbon Dioxide 33 H (22-30) mmol/L BUN 32 H (7-17) mg/dL Creatinine 2.3 H (0.6-1.2) mg/dL Glucose 111 H (65-100) mg/dL Calcium 8.8 (8.4-10.2) mg/dL - Imaging and Cardiology EKG: report reviewed Echo: report reviewed - Telemetry EKG Rhythm: Sinus Rhythm - EKG Sinus rhythms and dysrhythmias: sinus rhythm Repolarization changes or abnormalities: nonspecific abnormality, ST segment, and/or T wave
--- NOTE | 2022-03-19 13:58 | Ultrasound Report ---
ULTRASOUND RENAL INDICATION / CLINICAL INFORMATION: ever. COMPARISON: None available. FINDINGS: RIGHT KIDNEY: Length = 12.3 cm. - Echogenicity: Normal. - Parenchymal Thickness: Normal. - Hydronephrosis: None. - Cyst / Mass: None. - Stones: None seen. LEFT KIDNEY: Length = 10.3 cm. - Echogenicity: Normal. - Parenchymal Thickness: Normal. - Hydronephrosis: None. - Cyst / Mass: None. - Stones: None seen. URINARY BLADDER: Collapsed. No significant abnormality identified. FREE FLUID: None. ADDITIONAL FINDINGS: None. IMPRESSION: 1. Technically limited exam secondary to patient body habitus. 2. No acute sonographic abnormality of the kidneys. Scribed by: Jessica Munguia RDMS, SHANAE, ANDREW Scribed: 03/19/2022 11:51 AM I have reviewed the images, agree with this report, and edited this report as needed. Signer Name: Allison Sarkar MD Signed: 03/19/2022 1:53 PM Workstation Name: [email or web address]
[2022-03-19] MEDS: BUDESONIDE 0.5 MG/2 ML NEBU IH SCH ×2 (15:06→20:42)
[2022-03-19] MEDS ORDERED: IPRATROPIUM/ALBUTEROL SULFATE 3 ML AMPUL.NEB IH PRN (15:09)
[2022-03-20] MEDS: methylPREDNISolone Sod Succinate 125 MG/2 ML INJ IV SCH ×3 (05:14→21:17)
[2022-03-20] MEDS: HEPARIN 5,000 UNIT/1 ML VIAL SUB-Q SCH ×3 (05:15→21:18)
[2022-03-20] MEDS: FAMOTIDINE 20 MG TAB PO SCH ×2 (10:11→21:18)
[2022-03-20] MEDS: BUDESONIDE 0.5 MG/2 ML NEBU IH SCH ×2 (10:46→22:17)
--- NOTE | 2022-03-20 12:38 | Progress Note ---
Assessment and Plan Assessment and plan: History Interval history: This is 51 year old female with asthma, hypertension, morbid obesity who presented to emergency department on 03/16 with shortness of breath over the past 2 to 3 weeks, occasional appropriate adductive cough of white sputum and orthopnea. In the emergency department ABG was 7.268, 79.5, 53.0, 35.5 on 78% SPO2, CXR compatible with CHF exacerbation and proBNP was 2055. Patient was placed on BiPAP and given Lasix, nebulized breathing treatments and admitted to the hospital service with consults to cardiology. Hospital course to date: 03/17: Pulmonology consulted, remains on BiPAP 03/18: Hyperkalemia 6.2 corrected with Kayexalate and insulin and dextrose, acute kidney injury probably secondary to overdiuresis and lisinopril discontinued, patient was on high flow nasal cannula but was transferred to ICU on BiPAP therapy for possible intubation. Intubation did not occur. 03/19: Remains on BiPAP, hyperkalemia corrected, worsening renal function therefore nephrology was consulted. Patient will be transferred back to the floor. 03/19: Transitioned to Hi flow nasal cannula 30/45. However recommend continue bipap qhs. D/w RT to aggressively wean as sat tolerate > 90%. Would recommend additional volume for renal function .Will continue to trend Cr at this time. Assessment and plan: This is a 51-year-old female with asthma, HTN, morbid obesity admitted with new onset CHF with exacerbation and acute hypoxic and hypercapnic respiratory failure Neuro: NAD -Reorientation as needed -Maintain sleep-wake cycle -As needed analgesia Cardiac: New Onset Congestive Heart failure, Diastolic heart failure. h/o HTN -Cardiology consulted, appreciate recommendations -Admit proBNP 2855 -Blood pressure monitoring per protocol -S/p diuresis with Lasix -Echocardiogram shows EF 55 to 60%. Flattened septum consistent with right ventricular volume and pressure overload. HOLD MYRON-i due to renal fx. Respiratory: Acute hypoxic hypercapnic respiratory failure, Obesity hypoventilation syndrome, h/o asthma -CCM consulted, appreciate recommendations -BiPAP therapy -Pulmonary hygiene -SPO2 monitor per protocol -Zain Velazquezmiccameron -Steroids -Outpatient follow-up with pulmonology for PFTs GI: Morbid Obesity -PPI -CC diet -Lifestyle and dietary modifications strongly encouraged : Acute kidney injury likely secondary to vasomotor nephropathy, hyperkalemia, hyperphosphatemia -Nephrology consulted, appreciate recommendations -Monitor intake and output -Renally dose medications -Avoid nephrotoxic medications -03/19 FeNa 0.01% -Renal ultrasound pending -Trend BMP -Kayexalate for hyperkalemia ID: NAD -Monitor WBC and temperature curve Endo: NAD -Avoid hypoglycemia -SSI -Accu-Cheks q. 6 while n.p.o. Heme: NAD -Trend CBC -Transfuse hemoglobin less than 7 -SCDs to BLE while in bed The high probability of a clinically significant, sudden or life threatening deterioration of the [pulm/cardio] system(s) required my full and direct attention, intervention and personal management. The aggregate critical care time was [60] minutes. This time is in addition to time spent performing rep orted procedures but includes the following: [x] Data Review and interpretation [x] Patient assessment and monitoring of vital signs [x] Documentation [x] Medication orders and management Disposition Plan: transfer to floor Total Time Spent with Patient (Minutes): 60 History Interval history: No acute complaints .Resting comfortably. States her breathing has improved. Hospitalist Physical - Physical exam Narrative exam: General appearance: Present: well-nourished, obese (Morbidly obese), other (bipap) - EENT Eyes: Present: PERRL, EOM intact ENT: hearing intact, clear oral mucosa, dentition normal - Neck Neck: Present: normal ROM - Respiratory Respiratory effort: normal Respiratory: bilateral: diminished - Cardiovascular Rhythm: regular Heart Sounds: Present: S1 & S2. Absent: systolic murmur, diastolic murmur - Extremities Extremities: no ischemia, pulses intact, pulses symmetrical, No edema, normal temperature, normal color Peripheral Pulses: within normal limits - Abdominal General gastrointestinal: soft, non-tender, non-distended, normal bowel sounds - Integumentary Integumentary: Present: warm, dry - Psychiatric Psychiatric: cooperative - Neurologic Neurologic: CNII-XII intact, no focal deficits, moves all extremities - Allied Health Allied health notes reviewed: nursing, RT, social work - Constitutional Vitals: Temp Pulse Resp BP Pulse Ox 98.3 F 78 15 126/64 98 03/20/22 08:05 03/20/22 08:05 03/20/22 03:59 03/20/22 08:05 03/20/22 08:05 General appearance: Present: well-nourished, obese (Morbidly obese), other (bipap) HEART Score - HEART Score Troponin: Troponin T < 0.010 ng/mL (0.00-0.029) 03/16/22 18:29 Results - Labs CBC & Chem 7: 03/17/22 05:10 03/19/22 04:38 Labs: Laboratory Last Values WBC 9.7 K/mm3 (4.5-11.0) 03/17/22 05:10 RBC 3.71 M/mm3 (3.65-5.03) 03/17/22 05:10 Hgb 8.6 gm/dl (10.1-14.3) L 03/17/22 05:10 Hct 30.3 % (30.3-42.9) 03/17/22 05:10 MCV 82 fl (79-97) 03/17/22 05:10 MCH 23 pg (28-32) L 03/17/22 05:10 MCHC 28 % (30-34) L 03/17/22 05:10 RDW 20.4 % (13.2-15.2) H 03/17/22 05:10 Plt Count 310 K/mm3 (140-440) 03/17/22 05:10 Lymph % (Auto) 11.2 % (13.4-35.0) L 03/17/22 05:10 [place] % (Auto) 15.2 % (0.0-7.3) H 03/17/22 05:10 Eos % (Auto) 0.4 % (0.0-4.3) 03/17/22 05:10 Baso % (Auto) 0.1 % (0.0-1.8) 03/17/22 05:10 Lymph # (Auto) 1.1 K/mm3 (1.2-5.4) L 03/17/22 05:10 [place] # (Auto) 1.5 K/mm3 (0.0-0.8) H 03/17/22 05:10 Eos # (Auto) 0.0 K/mm3 (0.0-0.4) 03/17/22 05:10 Baso # (Auto) 0.0 K/mm3 (0.0-0.1) 03/17/22 05:10 Seg Neutrophils % 73.1 % (40.0-70.0) H 03/17/22 05:10 Seg Neutrophils # 7.1 K/mm3 (1.8-7.7) 03/17/22 05:10 PT 15.9 Sec. (12.2-14.9) H 03/16/22 18:29 INR 1.14 (0.87-1.13) H 03/16/22 18:29 APTT 29.2 Sec. (24.2-36.6) 03/16/22 18:29 ABG pH 7.246 pH Units (7.350-7.450) L 03/18/22 17:23 ABG pCO2 87.1 mm Hg 03/18/22 17:23 ABG pO2 77.6 mm Hg (80.0-90.0) L 03/18/22 17:23 ABG HCO3 37.0 mmol/L (20.0-26.0) H 03/18/22 17:23 ABG O2 Saturation 95.2 % (95.0-99.0) 03/18/22 17:23 ABG O2 Content 10.8 (0.0-44) 03/18/22 17:23 ABG Base Excess 8.1 mmol/L (-2.0-3.0) H 03/18/22 17:23 ABG Hemoglobin 8.1 gm/dl (12.0-16.0) L 03/18/22 17:23 ABG Carboxyhemoglobin 1.7 % (0.0-5.0) 03/18/22 17:23 ABG Methemoglobin 0.4 % (0.0-1.5) 03/18/22 17:23 Oxyhemoglobin 93.1 % (95.0-99.0) L 03/18/22 17:23 FiO2 40 % 03/18/22 17:23 Sodium 133 mmol/L (137-145) L 03/19/22 04:38 Potassium 5.9 mmol/L (3.6-5.0) H 03/19/22 04:38 Chloride 92.4 mmol/L (98-107) L 03/19/22 04:38 Carbon Dioxide 33 mmol/L (22-30) H 03/19/22 04:38 Anion Gap 14 mmol/L 03/19/22 04:38 BUN 32 mg/dL (7-17) H 03/19/22 04:38 Creatinine 2.3 mg/dL (0.6-1.2) H 03/19/22 04:38 Estimated GFR 27 ml/min 03/19/22 04:38 BUN/Creatinine Ratio 14 % 03/19/22 04:38 Glucose 111 mg/dL (65-100) H 03/19/22 04:38 POC Glucose 114 mg/dL (70-105) H 03/19/22 01:16 Calcium 8.8 mg/dL (8.4-10.2) 03/19/22 04:38 Phosphorus 6.70 mg/dL (2.5-4.5) H 03/18/22 05:35 Magnesium 2.50 mg/dL (1.7-2.3) H 03/18/22 16:32 Total Bilirubin 0.80 mg/dL (0.1-1.2) 03/18/22 05:35 AST 25 units/L (5-40) 03/18/22 05:35 ALT 15 units/L (7-56) 03/18/22 05:35 Alkaline Phosphatase 80 units/L (35-129) 03/18/22 05:35 Troponin T < 0.010 ng/mL (0.00-0.029) 03/16/22 18:29 NT-Pro-B Natriuret Pep 2855 pg/mL (0-450) H 03/16/22 18:29 Total Protein 7.4 g/dL (6.3-8.2) 03/18/22 05:35 Albumin 3.5 g/dL (3.9-5) L 03/18/22 05:35 Albumin/Globulin Ratio 0.9 % 03/18/22 05:35 Urine Creatinine 249.2 mg/dL (0.1-20.0) H 03/19/22 09:30 Urine Sodium 10 mmol/L 03/19/22 09:30 Urine Urea Nitrogen 413 03/19/22 09:30 Beatty/IV: Voiding Method Indwelling Catheter Active Medications - Current Medications Current Medications: Generic Name Dose Route Start Last Admin Trade Name Freq PRN Reason Stop Dose Admin Albuterol 2.5 mg 03/19/22 15:36 Albuterol 2.5 Mg/3 Ml Nebu IH Q4HRT PRN Shortness Of Breath Budesonide 0.5 mg 03/19/22 12:00 03/20/22 10:46 Budesonide 0.5 Mg/2 Ml Nebu IH 0.5 mg Q12HRT ARAMIS Administration Famotidine 20 mg 03/17/22 11:00 03/20/22 10:11 Famotidine 20 Mg Tab PO 20 mg BID ARAMIS Administration Heparin Sodium (Porcine) 5,000 unit 03/17/22 06:00 03/20/22 05:15 Heparin 5,000 Unit/1 Ml Vial SUB-Q 5,000 unit Q8HR ARAMIS Administration Methylprednisolone Sodium Succinate 60 mg 03/17/22 22:00 03/20/22 05:14 Methylprednisolone Sod Succinate 125 Mg/2 Ml Inj IV 60 mg Q8HR ARAMIS Administration
--- NOTE | 2022-03-20 13:04 | Progress Note ---
Assessment and Plan 51 y/o morbidly obese female with acute hypoxic hypercapnic respiratory failure. 03/20/22: Continue Tele monitoring. Ok with steroids. PPV at night. Guarded prognosis. 03/19/22: Transfer back to floor or IMCU. Follow up renal ultrasound. Would not suggest IVF. If pre renal would allow patient to correct on her own 1. Continuous bipap therapy 2. Repeat ABG in about 1-2 hours 3. NPO 4. Hold on diuretic therapy, need to repeat chemistry. 5. If given a break on bipap, must be put back on tonight 6. Consider Bariatric surgery evaluation as outpatient 7. Guarded prognosis. Subjective Date of service: 03/20/22 Principal diagnosis: Acute respiratory failure, obesity hypoventilation syndrome Interval history: No acute events. Wore bipap last night, on HFNC now. Objective Vital Signs - 12hr 03/20/22 03/20/22 03/20/22 01:46 03:59 08:05 Temperature 97.3 F L 98.3 F Pulse Rate 80 78 Pulse Rate [ Bilateral Throughout] Respiratory 15 Rate Respiratory Rate [Bilateral Throughout] Blood Pressure 124/74 126/64 O2 Sat by Pulse 95 96 98 Oximetry 03/20/22 10:46 Temperature Pulse Rate Pulse Rate [ 83 Bilateral Throughout] Respiratory Rate Respiratory 20 Rate [Bilateral Throughout] Blood Pressure O2 Sat by Pulse Oximetry Constitutional: other (morbidly, morbidly obese) ENT: oropharynx dry Neck: other (neck cir is greater than 30) Effort: mildly labored Ascultation: Bilateral: diminished breath sounds Percussion: Bilateral: not dull Cardiovascular: regular rate and rhythm Gastrointestinal: normoactive bowel sounds Extremities: anasarca CBC and BMP: 03/17/22 05:10 03/19/22 04:38 ABG, PT/INR, D-dimer: ABG ABG pH 7.246 pH Units (7.350-7.450) L 03/18/22 17:23 ABG pCO2 87.1 mm Hg 03/18/22 17: ABG pO2 77.6 mm Hg (80.0-90.0) L 03/18/22 17:23 ABG O2 Saturation 95.2 % (95.0-99.0) 03/18/22 17:23 PT/INR, D-dimer PT 15.9 Sec. (12.2-14.9) H 03/16/22 18:29 INR 1.14 (0.87-1.13) H 03/16/22 18:29 Abnormal lab findings: Abnormal Labs 03/16/22 03/16/22 03/16/22 18:29 18:29 18:29 Hgb 8.6 L Hct 29.4 L MCH 23 L MCHC 29 L RDW 20.0 H Lymph % (Auto) [place] % (Auto) 13.9 H Lymph # (Auto) [place] # (Auto) 1.2 H Seg Neutrophils % PT 15.9 H INR 1.14 H ABG pH ABG pO2 ABG HCO3 ABG O2 Saturation ABG Base Excess ABG Hemoglobin Oxyhemoglobin Sodium 132 L Potassium 5.2 H Chloride 90.9 L Carbon Dioxide 33 H BUN Creatinine Glucose POC Glucose Calcium Phosphorus Magnesium NT-Pro-B Natriuret Pep 2855 H Albumin 3.7 L Urine Creatinine 03/16/22 03/17/22 03/17/22 19:35 05:10 05:10 Hgb 8.6 L Hct MCH 23 L MCHC 28 L RDW 20.4 H Lymph % (Auto) 11.2 L [place] % (Auto) 15.2 H Lymph # (Auto) 1.1 L [place] # (Auto) 1.5 H Seg Neutrophils % 73.1 H PT INR ABG pH 7.268 L ABG pO2 53.0 L ABG HCO3 35.5 H ABG O2 Saturation 78.5 L ABG Base Excess 7.0 H ABG Hemoglobin 8.8 L Oxyhemoglobin 76.5 L Sodium 134 L Potassium 6.3 H* D Chloride 93.9 L Carbon Dioxide 37 H BUN Creatinine Glucose POC Glucose Calcium 8.3 L Phosphorus Magnesium NT-Pro-B Natriuret Pep Albumin Urine Creatinine 03/17/22 03/18/22 03/18/22 23:05 05:35 12:00 Hgb Hct MCH MCHC RDW Lymph % (Auto) [place] % (Auto) Lymph # (Auto) [place] # (Auto) Seg Neutrophils % PT INR ABG pH 7.194 L* ABG pO2 ABG HCO3 37.8 H ABG O2 Saturation ABG Base Excess 8.1 H ABG Hemoglobin 8.0 L Oxyhemoglobin 94.4 L Sodium 133 L Potassium 6.0 H 6.2 H* Chloride 92.1 L Carbon Dioxide 31 H BUN 19 H Creatinine 1.7 H D Glucose 113 H POC Glucose Calcium Phosphorus 6.70 H Magnesium 2.40 H 2.40 H NT-Pro-B Natriuret Pep Albumin 3.5 L Urine Creatinine 03/18/22 03/18/22 03/18/22 16:32 17:23 18:01 Hgb Hct MCH MCHC RDW Lymph % (Auto) [place] % (Auto) Lymph # (Auto) [place] # (Auto) Seg Neutrophils % PT INR ABG pH 7.246 L ABG pO2 77.6 L ABG HCO3 37.0 H ABG O2 Saturation ABG Base Excess 8.1 H ABG Hemoglobin 8.1 L Oxyhemoglobin 93.1 L Sodium Potassium 6.2 H* Chloride Carbon Dioxide BUN Creatinine Glucose POC Glucose 114 H Calcium Phosphorus Magnesium 2.50 H NT-Pro-B Natriuret Pep Albumin Urine Creatinine 03/18/22 03/19/22 03/19/22 18:48 01:16 04:38 Hgb Hct MCH MCHC RDW Lymph % (Auto) [place] % (Auto) Lymph # (Auto) [place] # (Auto) Seg Neutrophils % PT INR ABG pH ABG pO2 ABG HCO3 ABG O2 Saturation ABG Base Excess ABG Hemoglobin Oxyhemoglobin Sodium 133 L Potassium 5.9 H Chloride 92.4 L Carbon Dioxide 33 H BUN 32 H Creatinine 2.3 H Glucose 111 H POC Glucose 136 H 114 H Calcium Phosphorus Magnesium NT-Pro-B Natriuret Pep Albumin Urine Creatinine 03/19/22 09:30 Hgb Hct MCH MCHC RDW Lymph % (Auto) [place] % (Auto) Lymph # (Auto) [place] # (Auto) Seg Neutrophils % PT INR ABG pH ABG pO2 ABG HCO3 ABG O2 Saturation ABG Base Excess ABG Hemoglobin Oxyhemoglobin Sodium Potassium Chloride Carbon Dioxide BUN Creatinine Glucose POC Glucose Calcium Phosphorus Magnesium NT-Pro-B Natriuret Pep Albumin Urine Creatinine 249.2 H
--- NOTE | 2022-03-20 14:36 | Progress Note ---
Assessment and Plan # Acute Kidney Injury: suspect STEPHEN in setting of cardiorenal changes, potential overdiuresis? Certainly risk for tubular injury with soft BPs. - urine lytes noted, check urinalysis, UP/C - check serologies for GN consideration - renal ultrasound WNL - maintain MAP >70, agree to hold antihypertensives - avoid nephrotoxins - renally dose medications - agree to hold diuretics for now, use prn only- agree to avoid IVF - strict Is/Os - no immediate need for renal replacement therapy # Hyperkalemia: continue medical management, holding MYRON-I. If persistent with worsening renal function, will need dialysis # Respiratory Alkalosis: Bipap per pulm # CHF: note EF 50-60% # Hyponatremia: mild, may be related to volume, follow for now # Anemia, Microcytic: follow hemoglobin Subjective Date of service: 03/20/22 Principal diagnosis: Acute respiratory failure, obesity hypoventilation syndrome Interval history: More awake, alert today. Off Bipap, on HFNC. Objective - Exam Narrative Exam: Constitutional: no acute distress, on Bipap Head: NC/AT Neck: supple Lungs: coarse lungs sounds CV: RRR, no M/R/G Abdomen: soft, non-tender, bowel sounds present Back: nontender Extremities: no edema, pulses WNL Skin: intact Neuro: altered - Vital Signs Vital signs: Vital Signs - 12hr 03/20/22 03/20/22 03/20/22 03:59 08:05 10:46 Temperature 97.3 F L 98.3 F Pulse Rate 80 78 Pulse Rate [ 83 Bilateral Throughout] Respiratory 15 Rate Respiratory 20 Rate [Bilateral Throughout] Blood Pressure 124/74 126/64 O2 Sat by Pulse 96 98 Oximetry - Lab 03/17/22 05:10 03/21/22 10:49 Most recent lab results ABG pH 7.246 pH Units (7.350-7.450) L 03/18/22 17: ABG pCO2 87.1 mm Hg 03/18/22 17:23 ABG pO2 77.6 mm Hg (80.0-90.0) L 03/18/22 17:23 ABG HCO3 37.0 mmol/L (20.0-26.0) H 03/18/22 17:23 ABG O2 Saturation 95.2 % (95.0-99.0) 03/18/22 17:23 Calcium 8.8 mg/dL (8.4-10.2) 03/19/22 04:38 Phosphorus 6.70 mg/dL (2.5-4.5) H 03/18/22 05:35 Magnesium 2.50 mg/dL (1.7-2.3) H 03/18/22 16:32 Urine Creatinine 249.2 mg/dL (0.1-20.0) H 03/19/22 09:30 Urine Sodium 10 mmol/L 03/19/22 09:30 Medications & Allergies - Medications Allergies/Adverse Reactions: Allergies Sulfa (Sulfonamide Antibiotics) Adverse Reaction (Severe, Verified 03/18/22 16:52) "Eyes Breakout" Patient described reaction to be that her eyes breakout and develop a substance around them. Home Medications: Home Medications Medication Instructions Recorded Confirmed Last Taken Type Albuterol Mdi (or & Nicu Only) 1 puff IH Q4H PRN 03/18/22 03/18/22 Unknown History [ProAir HFA Inhaler] Albuterol Sulfate [Albuterol 0.63% 0.83 mg IH Q4H PRN 03/18/22 03/18/22 Unknown History NEBS] Difluprednate [Durezol] 1 drop OU DAILY 03/18/22 03/18/22 Unknown History Fluticasone/Salmeterol [Advair 1 puff IH BID 03/18/22 03/18/22 Unknown History Diskus 250-50 mcg] Montelukast [Singulair] 10 mg PO QPM 03/18/22 03/18/22 Unknown History Tobramycin/Dexameth 0.1-0.3% 1 drop OS BID 03/18/22 03/18/22 Unknown History [Tobradex] prednisoLONE ACETATE 1% [Pred 1 drop OS QID 03/18/22 03/18/22 Unknown History Forte 1%] Active Medications: Generic Name Dose Route Start Last Admin Trade Name Freq PRN Reason Stop Dose Admin Albuterol 2.5 mg 03/19/22 15:36 Albuterol 2.5 Mg/3 Ml Nebu IH Q4HRT PRN Shortness Of Breath Budesonide 0.5 mg 03/19/22 12:00 03/20/22 10:46 Budesonide 0.5 Mg/2 Ml Nebu IH 0.5 mg Q12HRT ARAMIS Administration Famotidine 20 mg 03/17/22 11:00 03/20/22 10:11 Famotidine 20 Mg Tab PO 20 mg BID ARAMIS Administration Heparin Sodium (Porcine) 5,000 unit 03/17/22 06:00 03/20/22 05:15 Heparin 5,000 Unit/1 Ml Vial SUB-Q 5,000 unit Q8HR ARAMIS Administration Methylprednisolone Sodium Succinate 60 mg 03/17/22 22:00 03/20/22 05:14 Methylprednisolone Sod Succinate 125 Mg/2 Ml Inj IV 60 mg Q8HR ARAMIS Administration
[2022-03-20 15:09] LABS: Blood Urea Nitrogen TNR mg/dL (7-17)
[2022-03-20 15:10] LABS: BUN/Creatinine Ratio TNR
[2022-03-20 15:11] LABS: Calcium TNR mg/dL (8.4-10.2); Hemolysis Index TNR
[2022-03-21 00:09] LABS: Calcium 8.8 mg/dL (8.4-10.2)
[2022-03-21] MEDS: HEPARIN 5,000 UNIT/1 ML VIAL SUB-Q SCH ×3 (05:19→22:25)
[2022-03-21] MEDS: methylPREDNISolone Sod Succinate 125 MG/2 ML INJ IV SCH ×3 (05:19→22:25)
[2022-03-21] MEDS: FAMOTIDINE 20 MG TAB PO SCH ×2 (09:38→22:25)
[2022-03-21] MEDS: BUDESONIDE 0.5 MG/2 ML NEBU IH SCH ×2 (09:51→21:42)
--- NOTE | 2022-03-21 09:53 | Progress Note ---
Assessment and Plan Assessment and plan: This is 51 year old female with asthma, hypertension, morbid obesity who presented to emergency department on 03/16 with shortness of breath over the past 2 to 3 weeks, occasional appropriate adductive cough of white sputum and orthopnea. In the emergency department ABG was 7.268, 79.5, 53.0, 35.5 on 78% SPO2, CXR compatible with CHF exacerbation and proBNP was 2055. Patient was placed on BiPAP and given Lasix, nebulized breathing treatments and admitted to the hospital service with consults to cardiology. Hospital course to date: 03/17: Pulmonology consulted, remains on BiPAP 03/18: Hyperkalemia 6.2 corrected with Kayexalate and insulin and dextrose, acute kidney injury probably secondary to overdiuresis and lisinopril discontinued, patient was on high flow nasal cannula but was transferred to ICU on BiPAP therapy for possible intubation. Intubation did not occur. 03/19: Remains on BiPAP, hyperkalemia corrected, worsening renal function therefore nephrology was consulted. Patient will be transferred back to the floor. 03/19: Transitioned to Hi flow nasal cannula 30/45. However recommend continue bipap qhs. D/w RT to aggressively wean as sat tolerate > 90%. Would recommend additional volume for renal function .Will continue to trend Cr at this time. 03/21: Continue supportive care. Patient continues on high flow at 30/45%. I do strongly discussed with the team to use the BiPAP at night as she was intermittently falling asleep while she was speaking. Aspiration precautions. I requested repeat labs to see what was found with renal function. She does have a Beatty catheter in place which will be evaluated prior to discharge. Counseling provided again on obesity management. Outpatient referral to obesity clinic to be done. Assessment and plan: This is a 51-year-old female with asthma, HTN, morbid obesity admitted with new onset CHF with exacerbation and acute hypoxic and hypercapnic respiratory failure Neuro: NAD -Reorientation as needed -Maintain sleep-wake cycle -As needed analgesia Cardiac: New Onset Congestive Heart failure, Diastolic heart failure. h/o HTN -Cardiology consulted, appreciate recommendations -Admit proBNP 2855 -Blood pressure monitoring per protocol -S/p diuresis with Lasix -Echocardiogram shows EF 55 to 60%. Flattened septum consistent with right ventricular volume and pressure overload. HOLD MYRON-i due to renal fx. Respiratory: Acute hypoxic hypercapnic respiratory failure, Obesity hypoventilation syndrome, h/o asthma -CCM consulted, appreciate recommendations -BiPAP therapy -Pulmonary hygiene -SPO2 monitor per protocol -Navin Velazquez -Steroids -Outpatient follow-up with pulmonology for PFTs GI: Morbid Obesity -PPI -CC diet -Lifestyle and dietary modifications strongly encouraged : Acute kidney injury likely secondary to vasomotor nephropathy, hyperkalemia, hyperphosphatemia -Nephrology consulted, appreciate recommendations -Monitor intake and output -Renally dose medications -Avoid nephrotoxic medications -03/19 FeNa 0.01% -Renal ultrasound pending -Trend BMP -Kayexalate for hyperkalemia ID: NAD -Monitor WBC and temperature curve Endo: NAD -Avoid hypoglycemia -SSI -Accu-Cheks q. 6 while n.p.o. Heme: NAD -Trend CBC -Transfuse hemoglobin less than 7 -SCDs to BLE while in bed The high probability of a clinically significant, sudden or life threatening deterioration of the [pulm/cardio] system(s) required my full and direct attention, intervention and personal management. The aggregate critical care time was [60] minutes. This time is in addition to time spent performing reported procedures but includes the following: [x] Data Review and interpretation [x] Patient assessment and monitoring of vital signs [x] Documentation [x] Medication orders and management Disposition Plan: transfer to floor Total Time Spent with Patient (Minutes): 60 History Interval history: Patient seen and examined, no new complaint. Remains on high flow. However intermittently falls asleep while she is talking Hospitalist Physical - Physical exam Narrative exam: General appearance: Present: well-nourished, obese (Morbidly obese), other (bipap) - EENT Eyes: Present: PERRL, EOM intact ENT: hearing intact, clear oral mucosa, dentition normal - Neck Neck: Present: normal ROM - Respiratory Respiratory effort: normal Respiratory: bilateral: diminished - Cardiovascular Rhythm: regular Heart Sounds: Present: S1 & S2. Absent: systolic murmur, diastolic murmur - Extremities Extremities: no ischemia, pulses intact, pulses symmetrical, No edema, normal temperature, normal color Peripheral Pulses: within normal limits - Abdominal General gastrointestinal: soft, non-tender, non-distended, normal bowel sounds - Integumentary Integumentary: Present: warm, dry - Psychiatric Psychiatric: cooperative - Neurologic Neurologic: CNII-XII intact, no focal deficits, moves all extremities - Allied Health Allied health notes reviewed: nursing, RT, social work - Constitutional Vitals: Temp Pulse Resp BP Pulse Ox 97.9 F 90 16 118/67 96 03/21/22 07:50 03/21/22 07:50 03/21/22 03:52 03/21/22 07:50 03/21/22 07:50 General appearance: Present: well-nourished, obese (Morbidly obese), other (bipap) HEART Score - HEART Score Troponin: Troponin T < 0.010 ng/mL (0.00-0.029) 03/16/22 18:29 Results - Labs CBC & Chem 7: 03/17/22 05:10 03/20/22 Unknown Labs: Laboratory Last Values WBC 9.7 K/mm3 (4.5-11.0) 03/17/22 05:10 RBC 3.71 M/mm3 (3.65-5.03) 03/17/22 05:10 Hgb 8.6 gm/dl (10.1-14.3) L 03/17/22 05:10 Hct 30.3 % (30.3-42.9) 03/17/22 05:10 MCV 82 fl (79-97) 03/17/22 05:10 MCH 23 pg (28-32) L 03/17/22 05:10 MCHC 28 % (30-34) L 03/17/22 05:10 RDW 20.4 % (13.2-15.2) H 03/17/22 05:10 Plt Count 310 K/mm3 (140-440) 03/17/22 05:10 Lymph % (Auto) 11.2 % (13.4-35.0) L 03/17/22 05:10 [place] % (Auto) 15.2 % (0.0-7.3) H 03/17/22 05:10 Eos % (Auto) 0.4 % (0.0-4.3) 03/17/22 05:10 Baso % (Auto) 0.1 % (0.0-1.8) 03/17/22 05:10 Lymph # (Auto) 1.1 K/mm3 (1.2-5.4) L 03/17/22 05:10 [place] # (Auto) 1.5 K/mm3 (0.0-0.8) H 03/17/22 05:10 Eos # (Auto) 0.0 K/mm3 (0.0-0.4) 03/17/22 05:10 Baso # (Auto) 0.0 K/mm3 (0.0-0.1) 03/17/22 05:10 Seg Neutrophils % 73.1 % (40.0-70.0) H 03/17/22 05:10 Seg Neutrophils # 7.1 K/mm3 (1.8-7.7) 03/17/22 05:10 PT 15.9 Sec. (12.2-14.9) H 03/16/22 18:29 INR 1.14 (0.87-1.13) H 03/16/22 18:29 APTT 29.2 Sec. (24.2-36.6) 03/16/22 18:29 ABG pH 7.246 pH Units (7.350-7.450) L 03/18/22 17:23 ABG pCO2 87.1 mm Hg 03/18/22 17:23 ABG pO2 77.6 mm Hg (80.0-90.0) L 03/18/22 17:23 ABG HCO3 37.0 mmol/L (20.0-26.0) H 03/18/22 17:23 ABG O2 Saturation 95.2 % (95.0-99.0) 03/18/22 17:23 ABG O2 Content 10.8 (0.0-44) 03/18/22 17:23 ABG Base Excess 8.1 mmol/L (-2.0-3.0) H 03/18/22 17:23 ABG Hemoglobin 8.1 gm/dl (12.0-16.0) L 03/18/22 17:23 ABG Carboxyhemoglobin 1.7 % (0.0-5.0) 03/18/22 17:23 ABG Methemoglobin 0.4 % (0.0-1.5) 03/18/22 17: Oxyhemoglobin 93.1 % (95.0-99.0) L 03/18/22 17:23 FiO2 40 % 03/18/22 17:23 Sodium TNR 03/20/22 Unknown Potassium TNR 03/20/22 Unknown Chloride TNR 03/20/22 Unknown Carbon Dioxide TNR 03/20/22 Unknown Anion Gap TNR 03/20/22 Unknown BUN TNR 03/20/22 Unknown Creatinine TNR 03/20/22 Unknown Estimated GFR TNR 03/20/22 Unknown BUN/Creatinine Ratio TNR 03/20/22 Unknown Glucose TNR 03/20/22 Unknown POC Glucose 114 mg/dL (70-105) H 03/19/22 01:16 Calcium TNR 03/20/22 Unknown Phosphorus 6.70 mg/dL (2.5-4.5) H 03/18/22 05:35 Magnesium 2.50 mg/dL (1.7-2.3) H 03/18/22 16:32 Total Bilirubin 0.80 mg/dL (0.1-1.2) 03/18/22 05:35 AST 25 units/L (5-40) 03/18/22 05:35 ALT 15 units/L (7-56) 03/18/22 05:35 Alkaline Phosphatase 80 units/L (35-129) 03/18/22 05:35 Troponin T < 0.010 ng/mL (0.00-0.029) 03/16/22 18:29 NT-Pro-B Natriuret Pep 2855 pg/mL (0-450) H 03/16/22 18:29 Total Protein 7.4 g/dL (6.3-8.2) 03/18/22 05:35 Albumin 3.5 g/dL (3.9-5) L 03/18/22 05:35 Albumin/Globulin Ratio 0.9 % 03/18/22 05:35 Urine Creatinine 249.2 mg/dL (0.1-20.0) H 03/19/22 09:30 Urine Sodium 10 mmol/L 03/19/22 09:30 Urine Urea Nitrogen 413 03/19/22 09:30 Beatty/IV: Voiding Method Indwelling Catheter Active Medications - Current Medications Current Medications: Generic Name Dose Route Start Last Admin Trade Name Freq PRN Reason Stop Dose Admin Albuterol 2.5 mg 03/19/22 15:36 Albuterol 2.5 Mg/3 Ml Nebu IH Q4HRT PRN Shortness Of Breath Budesonide 0.5 mg 03/19/22 12:00 03/20/22 22:17 Budesonide 0.5 Mg/2 Ml Nebu IH 0.5 mg Q12HRT ARAMIS Administration Famotidine 20 mg 03/17/22 11:00 03/21/22 09:38 Famotidine 20 Mg Tab PO 20 mg BID ARAMIS Administration Heparin Sodium (Porcine) 5,000 unit 03/17/22 06:00 03/21/22 05:19 Heparin 5,000 Unit/1 Ml Vial SUB-Q 5,000 unit Q8HR ARAMIS Administration Methylprednisolone Sodium Succinate 60 mg 03/17/22 22:00 03/21/22 05:19 Methylprednisolone Sod Succinate 125 Mg/2 Ml Inj IV 60 mg Q8HR ARAMIS Administration
[2022-03-21] MEDS ORDERED: SODIUM POLYSTYRENE 15 GM/60 ML ORAL LIQD PO ONE (12:00)
[2022-03-21 12:15] LABS: BUN/Creatinine Ratio 36; Blood Urea Nitrogen 40 mg/dL (7-17); Calcium 8.8 mg/dL (8.4-10.2); Hemolysis Index 3
--- NOTE | 2022-03-21 15:45 | Progress Note ---
Assessment and Plan # Acute Kidney Injury: suspect STEPHEN in setting of cardiorenal changes, potential overdiuresis? Certainly risk for tubular injury with soft BPs. Creatinine has now improved - urine lytes noted, check urinalysis, UP/C - check serologies for GN consideration, pending - renal ultrasound WNL - maintain MAP >70, agree to hold antihypertensives - avoid nephrotoxins - renally dose medications - agree to hold diuretics for now, use prn only - strict Is/Os - no immediate need for renal replacement therapy # Hyperkalemia: continue medical management, holding MYRON-I. Unclear why remains higher, continue low K diet # Alkalosis: likely respiratory, chronic CO2 retention # CHF: note EF 50-60% # Hyponatremia: mild, may be related to volume, now stable # Anemia, Microcytic: follow hemoglobin Subjective Date of service: 03/21/22 Principal diagnosis: Acute respiratory failure, obesity hypoventilation syndrome Interval history: Resting in bed, no acute issues noted. Objective - Exam Narrative Exam: Constitutional: no acute distress, on Bipap Head: NC/AT Neck: supple Lungs: coarse lungs sounds CV: RRR, no M/R/G Abdomen: soft, non-tender, bowel sounds present Back: nontender Extremities: no edema, pulses WNL Skin: intact Neuro: altered - Vital Signs Vital signs: Vital Signs - 12hr 03/21/22 03/21/22 03/21/22 03:52 07:50 09:51 Temperature 97.9 F Pulse Rate 85 90 Pulse Rate [ 95 H Bilateral Throughout] Respiratory 16 Rate Respiratory 20 Rate [Bilateral Throughout] Blood Pressure 118/67 O2 Sat by Pulse 96 96 Oximetry 03/21/22 03/21/22 03/21/22 09:54 11:57 11:59 Temperature Pulse Rate 85 Pulse Rate [ Bilateral Throughout] Respiratory 17 Rate Respiratory Rate [Bilateral Throughout] Blood Pressure O2 Sat by Pulse 96 95 96 Oximetry - Lab 03/17/22 05:10 03/21/22 10:49 Most recent lab results ABG pH 7.246 pH Units (7.350-7.450) L 03/18/22 17:23 ABG pCO2 87.1 mm Hg 03/18/22 17:23 ABG pO2 77.6 mm Hg (80.0-90.0) L 03/18/22 17:23 ABG HCO3 37.0 mmol/L (20.0-26.0) H 03/18/22 17:23 ABG O2 Saturation 95.2 % (95.0-99.0) 03/18/22 17:23 Calcium 8.8 mg/dL (8.4-10.2) 03/21/22 10:49 Phosphorus 6.70 mg/dL (2.5-4.5) H 03/18/22 05:35 Magnesium 2.50 mg/dL (1.7-2.3) H 03/18/22 16:32 Urine Creatinine 249.2 mg/dL (0.1-20.0) H 03/19/22 09:30 Urine Sodium 10 mmol/L 03/19/22 09:30 Medications & Allergies - Medications Allergies/Adverse Reactions: Allergies Sulfa (Sulfonamide Antibiotics) Adverse Reaction (Severe, Verified 03/18/22 16:52) "Eyes Breakout" Patient described reaction to be that her eyes breakout and develop a substance around them. Home Medications: Home Medications Medication Instructions Recorded Confirmed Last Taken Type Albuterol Mdi (or & Nicu Only) 1 puff IH Q4H PRN 03/18/22 03/18/22 Unknown History [ProAir HFA Inhaler] Albuterol Sulfate [Albuterol 0.63% 0.83 mg IH Q4H PRN 03/18/22 03/18/22 Unknown History NEBS] Difluprednate [Durezol] 1 drop OU DAILY 03/18/22 03/18/22 Unknown History Fluticasone/Salmeterol [Advair 1 puff IH BID 03/18/22 03/18/22 Unknown History Diskus 250-50 mcg] Montelukast [Singulair] 10 mg PO QPM 03/18/22 03/18/22 Unknown History Tobramycin/Dexameth 0.1-0.3% 1 drop OS BID 03/18/22 03/18/22 Unknown History [Tobradex] prednisoLONE ACETATE 1% [Pred 1 drop OS QID 03/18/22 03/18/22 Unknown History Forte 1%] Active Medications: Generic Name Dose Route Start Last Admin Trade Name Freq PRN Reason Stop Dose Admin Albuterol 2.5 mg 03/19/22 15:36 Albuterol 2.5 Mg/3 Ml Nebu IH Q4HRT PRN Shortness Of Breath Budesonide 0.5 mg 03/19/22 12:00 03/21/22 09:51 Budesonide 0.5 Mg/2 Ml Nebu IH 0.5 mg Q12HRT ARAMIS Administration Famotidine 20 mg 03/17/22 11:00 03/21/22 09:38 Famotidine 20 Mg Tab PO 20 mg BID ARAMIS Administration Heparin Sodium (Porcine) 5,000 unit 03/17/22 06:00 03/21/22 15:27 Heparin 5,000 Unit/1 Ml Vial SUB-Q 5,000 unit Q8HR ARAMIS Administration Methylprednisolone Sodium Succinate 60 mg 03/17/22 22:00 03/21/22 15:27 Methylprednisolone Sod Succinate 125 Mg/2 Ml Inj IV 60 mg Q8HR ARAMIS Administration
[2022-03-22] MEDS: HEPARIN 5,000 UNIT/1 ML VIAL SUB-Q SCH ×3 (05:09→22:16)
[2022-03-22] MEDS: methylPREDNISolone Sod Succinate 125 MG/2 ML INJ IV SCH ×3 (05:09→22:16)
--- NOTE | 2022-03-22 07:20 | Progress Note ---
Assessment and Plan 51 y/o morbidly obese female with acute hypoxic hypercapnic respiratory failure. 03/22/22: Bariatric surgery cutoff BMI at this hospital is 60 so not a candiate for surgery here. Would like to start weaning steroids but if still on HFNC today will reassess tomorrow. Continue PPV at night and PRN. 03/21/22: place on bipap now. bipap qhs and PRN during the day. Will discuss getting NIV with patient, she qualifies based on blood gas and OHS. 03/20/22: Continue Tele monitoring. Ok with steroids. PPV at night. Guarded prognosis. 03/19/22: Transfer back to floor or IMCU. Follow up renal ultrasound. Would not suggest IVF. If pre renal would allow patient to correct on her own 1. Continuous bipap therapy 2. Repeat ABG in about 1-2 hours 3. NPO 4. Hold on diuretic therapy, need to repeat chemistry. 5. If given a break on bipap, must be put back on tonight 6. Consider Bariatric surgery evaluation as outpatient 7. Guarded prognosis. Subjective Date of service: 03/22/22 Principal diagnosis: Acute respiratory failure, obesity hypoventilation syndrome Interval history: Wore bipap last night. Renal function better. Objective Vital Signs - 12hr 03/21/22 03/21/22 03/21/22 20:17 20:51 21:43 Temperature 98.6 F Pulse Rate 93 H Pulse Rate [ Bilateral Throughout] Respiratory 18 Rate Respiratory Rate [Bilateral Throughout] Blood Pressure 130/78 O2 Sat by Pulse 95 98 96 Oximetry 03/21/22 03/21/22 03/22/22 21:44 22:00 02:00 Temperature Pulse Rate 95 H Pulse Rate [ 96 H Bilateral Throughout] Respiratory Rate Respiratory 18 Rate [Bilateral Throughout] Blood Pressure O2 Sat by Pulse 96 Oximetry 03/22/22 03/22/22 02:26 04:25 Temperature Pulse Rate 85 78 Pulse Rate [ Bilateral Throughout] Respiratory 22 18 Rate Respiratory Rate [Bilateral Throughout] Blood Pressure 100/45 O2 Sat by Pulse 95 95 Oximetry Constitutional: other (morbidly, morbidly obese) ENT: oropharynx dry Neck: other (neck cir is greater than 30) Effort: mildly labored Ascultation: Bilateral: diminished breath sounds Percussion: Bilateral: not dull Cardiovascular: regular rate and rhythm Gastrointestinal: normoactive bowel sounds Extremities: anasarca CBC and BMP: 03/17/22 05:10 03/21/22 10:49 ABG, PT/INR, D-dimer: ABG ABG pH 7.246 pH Units (7.350-7.450) L 03/18/22 17:23 ABG pCO2 87.1 mm Hg 03/18/22 17:23 ABG pO2 77.6 mm Hg (80.0-90.0) L 03/18/22 17:23 ABG O2 Saturation 95.2 % (95.0-99.0) 03/18/22 17:23 PT/INR, D-dimer PT 15.9 Sec. (12.2-14.9) H 03/16/22 18:29 INR 1.14 (0.87-1.13) H 03/16/22 18:29 Abnormal lab findings: Abnormal Labs 03/16/22 03/16/22 03/16/22 18:29 18:29 18:29 Hgb 8.6 L Hct 29.4 L MCH 23 L MCHC 29 L RDW 20.0 H Lymph % (Auto) [place] % (Auto) 13.9 H Lymph # (Auto) [place] # (Auto) 1.2 H Seg Neutrophils % PT 15.9 H INR 1.14 H ABG pH ABG pO2 ABG HCO3 ABG O2 Saturation ABG Base Excess ABG Hemoglobin Oxyhemoglobin Sodium 132 L Potassium 5.2 H Chloride 90.9 L Carbon Dioxide 33 H BUN Creatinine Glucose POC Glucose Calcium Phosphorus Magnesium NT-Pro-B Natriuret Pep 2855 H Albumin 3.7 L Urine Creatinine 03/16/22 03/17/22 03/17/22 19:35 05:10 05:10 Hgb 8.6 L Hct MCH 23 L MCHC 28 L RDW 20.4 H Lymph % (Auto) 11.2 L [place] % (Auto) 15.2 H Lymph # (Auto) 1.1 L [place] # (Auto) 1.5 H Seg Neutrophils % 73.1 H PT INR ABG pH 7.268 L ABG pO2 53.0 L ABG HCO3 35.5 H ABG O2 Saturation 78.5 L ABG Base Excess 7.0 H ABG Hemoglobin 8.8 L Oxyhemoglobin 76.5 L Sodium 134 L Potassium 6.3 H* D Chloride 93.9 L Carbon Dioxide 37 H BUN Creatinine Glucose POC Glucose Calcium 8.3 L Phosphorus Magnesium NT-Pro-B Natriuret Pep Albumin Urine Creatinine 03/17/22 03/18/22 03/18/22 23:05 05:35 12:00 Hgb Hct MCH MCHC RDW Lymph % (Auto) [place] % (Auto) Lymph # (Auto) [place] # (Auto) Seg Neutrophils % PT INR ABG pH 7.194 L* ABG pO2 ABG HCO3 37.8 H ABG O2 Saturation ABG Base Excess 8.1 H ABG Hemoglobin 8.0 L Oxyhemoglobin 94.4 L Sodium 133 L Potassium 6.0 H 6.2 H* Chloride 92.1 L Carbon Dioxide 31 H BUN 19 H Creatinine 1.7 H D Glucose 113 H POC Glucose Calcium Phosphorus 6.70 H Magnesium 2.40 H 2.40 H NT-Pro-B Natriuret Pep Albumin 3.5 L Urine Creatinine 03/18/22 03/18/22 03/18/22 16:32 17:23 18:01 Hgb Hct MCH MCHC RDW Lymph % (Auto) [place] % (Auto) Lymph # (Auto) [place] # (Auto) Seg Neutrophils % PT INR ABG pH 7.246 L ABG pO2 77.6 L ABG HCO3 37.0 H ABG O2 Saturation ABG Base Excess 8.1 H ABG Hemoglobin 8.1 L Oxyhemoglobin 93.1 L Sodium Potassium 6.2 H* Chloride Carbon Dioxide BUN Creatinine Glucose POC Glucose 114 H Calcium Phosphorus Magnesium 2.50 H NT-Pro-B Natriuret Pep Albumin Urine Creatinine 03/18/22 03/19/22 03/19/22 18:48 01:16 04:38 Hgb Hct MCH MCHC RDW Lymph % (Auto) [place] % (Auto) Lymph # (Auto) [place] # (Auto) Seg Neutrophils % PT INR ABG pH ABG pO2 ABG HCO3 ABG O2 Saturation ABG Base Excess ABG Hemoglobin Oxyhemoglobin Sodium 133 L Potassium 5.9 H Chloride 92.4 L Carbon Dioxide 33 H BUN 32 H Creatinine 2.3 H Glucose 111 H POC Glucose 136 H 114 H Calcium Phosphorus Magnesium NT-Pro-B Natriuret Pep Albumin Urine Creatinine 03/19/22 03/20/22 03/21/22 09:30 23:16 10:49 Hgb Hct MCH MCHC RDW Lymph % (Auto) [place] % (Auto) Lymph # (Auto) [place] # (Auto) Seg Neutrophils % PT INR ABG pH ABG pO2 ABG HCO3 ABG O2 Saturation ABG Base Excess ABG Hemoglobin Oxyhemoglobin Sodium Potassium 5.6 H 5.5 H Chloride 95.1 L 95.0 L Carbon Dioxide 36 H 37 H BUN 41 H 40 H Creatinine 1.3 H Glucose 119 H 139 H POC Glucose Calcium Phosphorus Magnesium NT-Pro-B Natriuret Pep Albumin Urine Creatinine 249.2 H
[2022-03-22 07:24] LABS: Hematocrit 28.4 % (30.3-42.9); Hemoglobin 8.6 gm/dl (10.1-14.3); Mean Corpuscular HGB Conc 30 % (30-34); Mean Corpuscular Volume 78 fl (79-97); Platelet Count 175 K/mm3 (140-440); Red Blood Count 3.62 M/mm3 (3.65-5.03); Red Cell Distribution Width 19.9 % (13.2-15.2)
[2022-03-22 07:46] LABS: BUN/Creatinine Ratio 32; Blood Urea Nitrogen 32 mg/dL (7-17); Calcium 8.7 mg/dL (8.4-10.2); Hemolysis Index 27
--- NOTE | 2022-03-22 07:59 | Progress Note ---
Assessment and Plan Assessment and plan: This is 51 year old female with asthma, hypertension, morbid obesity who presented to emergency department on 03/16 with shortness of breath over the past 2 to 3 weeks, occasional appropriate adductive cough of white sputum and orthopnea. In the emergency department ABG was 7.268, 79.5, 53.0, 35.5 on 78% SPO2, CXR compatible with CHF exacerbation and proBNP was 5. Patient was placed on BiPAP and given Lasix, nebulized breathing treatments and admitted to the hospital service with consults to cardiology. Hospital course to date: 03/17: Pulmonology consulted, remains on BiPAP 03/18: Hyperkalemia 6.2 corrected with Kayexalate and insulin and dextrose, acute kidney injury probably secondary to overdiuresis and lisinopril discontinued, patient was on high flow nasal cannula but was transferred to ICU on BiPAP therapy for possible intubation. Intubation did not occur. 03/19: Remains on BiPAP, hyperkalemia corrected, worsening renal function therefore nephrology was consulted. Patient will be transferred back to the floor. 03/19: Transitioned to Hi flow nasal cannula 30/45. However recommend continue bipap qhs. D/w RT to aggressively wean as sat tolerate > 90%. Would recommend additional volume for renal function .Will continue to trend Cr at this time. 03/21: Continue supportive care. Patient continues on high flow at 30/45%. I do strongly discussed with the team to use the BiPAP at night as she was intermittently falling asleep while she was speaking. Aspiration precautions. I requested repeat labs to see what was found with renal function. She does have a Beatty catheter in place which will be evaluated prior to discharge. Counseling provided again on obesity management. Outpatient referral to obesity clinic to be done. 03/22: Patient noted with still hyperkalemia, will give additional Kayxalate today, Pulm to assess weaning steroids. Patient remains on oxygen supplementation Assessment and plan: This is a 51-year-old female with asthma, HTN, morbid obesity admitted with new onset CHF with exacerbation and acute hypoxic and hypercapnic respiratory failure Neuro: NAD -Reorientation as needed -Maintain sleep-wake cycle -As needed analgesia Cardiac: New Onset Congestive Heart failure, Diastolic heart failure. h/o HTN -Cardiology consulted, appreciate recommendations -Admit proBNP 2855 -Blood pressure monitoring per protocol -S/p diuresis with Lasix -Echocardiogram shows EF 55 to 60%. Flattened septum consistent with right ventricular volume and pressure overload. HOLD MYRON-i due to renal fx. Respiratory: Acute hypoxic hypercapnic respiratory failure, Obesity hypoventilation syndrome, h/o asthma -CCM consulted, appreciate recommendations -BiPAP therapy -Pulmonary hygiene -SPO2 monitor per protocol -Brovana, Pulmicort -Steroids -Outpatient follow-up with pulmonology for PFTs GI: Morbid Obesity -PPI -CC diet -Lifestyle and dietary modifications strongly encouraged : Acute kidney injury likely secondary to vasomotor nephropathy, hyperkalemia, hyperphosphatemia -Nephrology consulted, appreciate recommendations -Monitor intake and output -Renally dose medications -Avoid nephrotoxic medications -03/19 FeNa 0.01% -Renal ultrasound pending -Trend BMP -Kayexalate for hyperkalemia ID: NAD -Monitor WBC and temperature curve Endo: NAD -Avoid hypoglycemia -SSI -Accu-Cheks q. 6 while n.p.o. Heme: NAD -Trend CBC -Transfuse hemoglobin less than 7 -SCDs to BLE while in bed The high probability of a clinically significant, sudden or life threatening deterioration of the [pulm/cardio] system(s) required my full and direct attention, intervention and personal management. The aggregate critical care time was [60] minutes. This time is in addition to time spent performing reported procedures but includes the following: [x] Data Review and interpretation [x] Patient assessment and monitoring of vital signs [x] Documentation [x] Medication orders and management Disposition Plan: transfer to floor Total Time Spent with Patient (Minutes): 60 History Interval history: Patient seen and examined, no new complaint. Remains on high flow. Was on BiPAP last night. Hospitalist Physical - Physical exam Narrative exam: General appearance: Present: well-nourished, obese (Morbidly obese), other (bipap) - EENT Eyes: Present: PERRL, EOM intact ENT: hearing intact, clear oral mucosa, dentition normal - Neck Neck: Present: normal ROM - Respiratory Respiratory effort: normal Respiratory: bilateral: diminished - Cardiovascular Rhythm: regular Heart Sounds: Present: S1 & S2. Absent: systolic murmur, diastolic murmur - Extremities Extremities: no ischemia, pulses intact, pulses symmetrical, No edema, normal temperature, normal color Peripheral Pulses: within normal limits - Abdominal General gastrointestinal: soft, non-tender, non-distended, normal bowel sounds - Integumentary Integumentary: Present: warm, dry - Psychiatric Psychiatric: cooperative - Neurologic Neurologic: CNII-XII intact, no focal deficits, moves all extremities - Allied Health Allied health notes reviewed: nursing, RT, social work - Constitutional Vitals: Temp Pulse Resp BP Pulse Ox 98.6 F 78 18 100/45 95 03/21/22 20:51 03/22/22 04:25 03/22/22 04:25 03/22/22 04:25 03/22/22 04:25 General appearance: Present: well-nourished, obese (Morbidly obese), other (bi pap) HEART Score - HEART Score Troponin: Troponin T < 0.010 ng/mL (0.00-0.029) 03/16/22 18:29 Results - Labs CBC & Chem 7: 03/22/22 06:58 03/22/22 06:58 Labs: Laboratory Last Values WBC 6.0 K/mm3 (4.5-11.0) 03/22/22 06:58 RBC 3.62 M/mm3 (3.65-5.03) L 03/22/22 06:58 Hgb 8.6 gm/dl (10.1-14.3) L 03/22/22 06:58 Hct 28.4 % (30.3-42.9) L 03/22/22 06:58 MCV 78 fl (79-97) L 03/22/22 06:58 MCH 24 pg (28-32) L 03/22/22 06:58 MCHC 30 % (30-34) 03/22/22 06:58 RDW 19.9 % (13.2-15.2) H 03/22/22 06:58 Plt Count 175 K/mm3 (140-440) 03/22/22 06:58 Lymph % (Auto) 11.2 % (13.4-35.0) L 03/17/22 05:10 [place] % (Auto) 15.2 % (0.0-7.3) H 03/17/22 05:10 Eos % (Auto) 0.4 % (0.0-4.3) 03/17/22 05:10 Baso % (Auto) 0.1 % (0.0-1.8) 03/17/22 05:10 Lymph # (Auto) 1.1 K/mm3 (1.2-5.4) L 03/17/22 05:10 [place] # (Auto) 1.5 K/mm3 (0.0-0.8) H 03/17/22 05:10 Eos # (Auto) 0.0 K/mm3 (0.0-0.4) 03/17/22 05:10 Baso # (Auto) 0.0 K/mm3 (0.0-0.1) 03/17/22 05:10 Seg Neutrophils % 73.1 % (40.0-70.0) H 03/17/22 05:10 Seg Neutrophils # 7.1 K/mm3 (1.8-7.7) 03/17/22 05:10 PT 15.9 Sec. (12.2-14.9) H 03/16/22 18:29 INR 1.14 (0.87-1.13) H 03/16/22 18:29 APTT 29.2 Sec. (24.2-36.6) 03/16/22 18:29 ABG pH 7.246 pH Units (7.350-7.450) L 03/18/22 17:23 ABG pCO2 87.1 mm Hg 03/18/22 17:23 ABG pO2 77.6 mm Hg (80.0-90.0) L 03/18/22 17:23 ABG HCO3 37.0 mmol/L (20.0-26.0) H 03/18/22 17:23 ABG O2 Saturation 95.2 % (95.0-99.0) 03/18/22 17:23 ABG O2 Content 10.8 (0.0-44) 03/18/22 17:23 ABG Base Excess 8.1 mmol/L (-2.0-3.0) H 03/18/22 17:23 ABG Hemoglobin 8.1 gm/dl (12.0-16.0) L 03/18/22 17:23 ABG Carboxyhemoglobin 1.7 % (0.0-5.0) 03/18/22 17:23 ABG Methemoglobin 0.4 % (0.0-1.5) 03/18/22 17:23 Oxyhemoglobin 93.1 % (95.0-99.0) L 03/18/22 17:23 FiO2 40 % 03/18/22 17:23 Sodium 140 mmol/L (137-145) 03/22/22 06:58 Potassium 5.7 mmol/L (3.6-5.0) H 03/22/22 06:58 Chloride 97.7 mmol/L (98-107) L 03/22/22 06:58 Carbon Dioxide 36 mmol/L (22-30) H 03/22/22 06:58 Anion Gap 12 mmol/L 03/22/22 06:58 BUN 32 mg/dL (7-17) H 03/22/22 06:58 Creatinine 1.0 mg/dL (0.6-1.2) 03/22/22 06:58 Estimated GFR > 60 ml/min 03/22/22 06:58 BUN/Creatinine Ratio 32 % 03/22/22 06:58 Glucose 116 mg/dL (65-100) H 03/22/22 06:58 POC Glucose 114 mg/dL (70-105) H 03/19/22 01:16 Calcium 8.7 mg/dL (8.4-10.2) 03/22/22 06:58 Phosphorus 6.70 mg/dL (2.5-4.5) H 03/18/22 05:35 Magnesium 2.50 mg/dL (1.7-2.3) H 03/18/22 16:32 Total Bilirubin 0.80 mg/dL (0.1-1.2) 03/18/22 05:35 AST 25 units/L (5-40) 03/18/22 05:35 ALT 15 units/L (7-56) 03/18/22 05:35 Alkaline Phosphatase 80 units/L (35-129) 03/18/22 05:35 Troponin T < 0.010 ng/mL (0.00-0.029) 03/16/22 18:29 NT-Pro-B Natriuret Pep 2855 pg/mL (0-450) H 03/16/22 18:29 Total Protein 7.4 g/dL (6.3-8.2) 03/18/22 05:35 Albumin 3.5 g/dL (3.9-5) L 03/18/22 05:35 Albumin/Globulin Ratio 0.9 % 03/18/22 05:35 Urine Creatinine 249.2 mg/dL (0.1-20.0) H 03/19/22 09:30 Urine Sodium 10 mmol/L 03/19/22 09:30 Urine Urea Nitrogen 413 03/19/22 09:30 Beatty/IV: Voiding Method Indwelling Catheter Active Medications - Current Medications Current Medications: Generic Name Dose Route Start Last Admin Trade Name Freq PRN Reason Stop Dose Admin Albuterol 2.5 mg 03/19/22 15:36 Albuterol 2.5 Mg/3 Ml Nebu IH Q4HRT PRN Shortness Of Breath Budesonide 0.5 mg 03/19/22 12:00 03/21/22 21:42 Budesonide 0.5 Mg/2 Ml Nebu IH 0.5 mg Q12HRT ARAMIS Administration Famotidine 20 mg 03/17/22 11:00 03/21/22 22:25 Famotidine 20 Mg Tab PO 20 mg BID ARAMIS Administration Heparin Sodium (Porcine) 5,000 unit 03/17/22 06:00 03/22/22 05:09 Heparin 5,000 Unit/1 Ml Vial SUB-Q 5,000 unit Q8HR ARAMIS Administration Methylprednisolone Sodium Succinate 60 mg 03/17/22 22:00 03/22/22 05:09 Methylprednisolone Sod Succinate 125 Mg/2 Ml Inj IV 60 mg Q8HR ARAMIS Administration
[2022-03-22] MEDS: BUDESONIDE 0.5 MG/2 ML NEBU IH SCH ×2 (08:51→20:40)
[2022-03-22] MEDS: ALBUTEROL 2.5 MG/3 ML NEBU IH PRN (08:51)
[2022-03-22] MEDS: FAMOTIDINE 20 MG TAB PO SCH ×3 (08:57→22:16)
[2022-03-22] MEDS ORDERED: SODIUM POLYSTYRENE 15 GM/60 ML ORAL LIQD PO SCH (09:00)
--- NOTE | 2022-03-22 15:40 | Progress Note ---
Assessment and Plan # Acute Kidney Injury: suspect STEPHEN in setting of cardiorenal changes, potential overdiuresis? Certainly risk for tubular injury with soft BPs. Creatinine has now improved - urine lytes noted, check urinalysis, UP/C - check serologies for GN consideration, pending - renal ultrasound WNL - maintain MAP >70, agree to hold antihypertensives - avoid nephrotoxins - renally dose medications - agree to hold diuretics for now, use prn only - strict Is/Os - no immediate need for renal replacement therapy # Hyperkalemia: continue medical management, holding MYRON-I. Unclear why remains higher especially with concurrent alkalosis and improved kidney function, continue low K diet # Alkalosis: likely respiratory, chronic CO2 retention # CHF: note EF 50-60% # Hyponatremia: mild, may be related to volume, now stable # Anemia, Microcytic: follow hemoglobin Subjective Date of service: 03/22/22 Principal diagnosis: Acute respiratory failure, obesity hypoventilation syndrome Interval history: Resting in bed, no acute issues noted. Objective - Exam Narrative Exam: Constitutional: no acute distress, on Bipap Head: NC/AT Neck: supple Lungs: coarse lungs sounds CV: RRR, no M/R/G Abdomen: soft, non-tender, bowel sounds present Back: nontender Extremities: no edema, pulses WNL Skin: intact Neuro: altered - Vital Signs Vital signs: Vital Signs - 12hr 03/22/22 03/22/22 03/22/22 04:25 08:11 08:51 Temperature 98.3 F Pulse Rate 78 Pulse Rate [ 90 Bilateral Throughout] Respiratory 18 17 Rate Respiratory 14 Rate [Bilateral Throughout] Blood Pressure 100/45 147/96 O2 Sat by Pulse 95 95 Oximetry 03/22/22 03/22/22 10:00 10:30 Temperature Pulse Rate Pulse Rate [ Bilateral Throughout] Respiratory Rate Respiratory Rate [Bilateral Throughout] Blood Pressure O2 Sat by Pulse 94 94 Oximetry - Lab 03/22/22 06:58 03/22/22 06:58 Most recent lab results ABG pH 7.246 pH Units (7.350-7.450) L 03/18/22 17:23 ABG pCO2 87.1 mm Hg 03/18/22 17:23 ABG pO2 77.6 mm Hg (80.0-90.0) L 03/18/22 17:23 ABG HCO3 37.0 mmol/L (20.0-26.0) H 03/18/22 17:23 ABG O2 Saturation 95.2 % (95.0-99.0) 03/18/22 17:23 Calcium 8.7 mg/dL (8.4-10.2) 03/22/22 06:58 Phosphorus 6.70 mg/dL (2.5-4.5) H 03/18/22 05:35 Magnesium 2.50 mg/dL (1.7-2.3) H 03/18/22 16:32 Urine Creatinine 249.2 mg/dL (0.1-20.0) H 03/19/22 09:30 Urine Sodium 10 mmol/L 03/19/22 09:30 Medications & Allergies - Medications Allergies/Adverse Reactions: Allergies Sulfa (Sulfonamide Antibiotics) Adverse Reaction (Severe, Verified 03/18/22 16:52) "Eyes Breakout" Patient described reaction to be that her eyes breakout and develop a substance around them. Home Medications: Home Medications Medication Instructions Recorded Confirmed Last Taken Type Albuterol Mdi (or & Nicu Only) 1 puff IH Q4H PRN 03/18/22 03/18/22 Unknown History [ProAir HFA Inhaler] Albuterol Sulfate [Albuterol 0.63% 0.83 mg IH Q4H PRN 03/18/22 03/18/22 Unknown History NEBS] Difluprednate [Durezol] 1 drop OU DAILY 03/18/22 03/18/22 Unknown History Fluticasone/Salmeterol [Advair 1 puff IH BID 03/18/22 03/18/22 Unknown History Diskus 250-50 mcg] Montelukast [Singulair] 10 mg PO QPM 03/18/22 03/18/22 Unknown History Tobramycin/Dexameth 0.1-0.3% 1 drop OS BID 03/18/22 03/18/22 Unknown History [Tobradex] prednisoLONE ACETATE 1% [Pred 1 drop OS QID 03/18/22 03/18/22 Unknown History Forte 1%] Active Medications: Generic Name Dose Route Start Last Admin Trade Name Freq PRN Reason Stop Dose Admin Albuterol 2.5 mg 03/19/22 15:36 03/22/22 08:51 Albuterol 2.5 Mg/3 Ml Nebu IH 2.5 mg Q4HRT PRN Administration Shortness Of Breath Budesonide 0.5 mg 03/19/22 12:00 03/22/22 08:51 Budesonide 0.5 Mg/2 Ml Nebu IH 0.5 mg Q12HRT ARAMIS Administration Famotidine 20 mg 03/17/22 11:00 03/22/22 11:06 Famotidine 20 Mg Tab PO Not Given BID ARAMIS Heparin Sodium (Porcine) 5,000 unit 03/17/22 06:00 03/22/22 14:40 Heparin 5,000 Unit/1 Ml Vial SUB-Q 5,000 unit Q8HR ARAMIS Administration Methylprednisolone Sodium Succinate 60 mg 03/17/22 22:00 03/22/22 14:40 Methylprednisolone Sod Succinate 125 Mg/2 Ml Inj IV 60 mg Q8HR ARAMIS Administration
[2022-03-23] MEDS: methylPREDNISolone Sod Succinate 125 MG/2 ML INJ IV SCH (06:13)
[2022-03-23] MEDS: HEPARIN 5,000 UNIT/1 ML VIAL SUB-Q SCH ×3 (06:13→22:53)
--- NOTE | 2022-03-23 08:39 | Progress Note ---
Assessment and Plan Assessment and plan: This is 51 year old female with asthma, hypertension, morbid obesity who presented to emergency department on 03/16 with shortness of breath over the past 2 to 3 weeks, occasional appropriate adductive cough of white sputum and orthopnea. In the emergency department ABG was 7.268, 79.5, 53.0, 35.5 on 78% SPO2, CXR compatible with CHF exacerbation and proBNP was 2055. Patient was placed on BiPAP and given Lasix, nebulized breathing treatments and admitted to the hospital service with consults to cardiology. Hospital course to date: 03/17: Pulmonology consulted, remains on BiPAP 03/18: Hyperkalemia 6.2 corrected with Kayexalate and insulin and dextrose, acute kidney injury probably secondary to overdiuresis and lisinopril discontinued, patient was on high flow nasal cannula but was transferred to ICU on BiPAP therapy for possible intubation. Intubation did not occur. 03/19: Remains on BiPAP, hyperkalemia corrected, worsening renal function therefore nephrology was consulted. Patient will be transferred back to the floor. 03/19: Transitioned to Hi flow nasal cannula 30/45. However recommend continue bipap qhs. D/w RT to aggressively wean as sat tolerate > 90%. Would recommend additional volume for renal function .Will continue to trend Cr at this time. 03/21: Continue supportive care. Patient continues on high flow at 30/45%. I do strongly discussed with the team to use the BiPAP at night as she was intermittently falling asleep while she was speaking. Aspiration precautions. I requested repeat labs to see what was found with renal function. She does have a Beatty catheter in place which will be evaluated prior to discharge. Counseling provided again on obesity management. Outpatient referral to obesity clinic to be done. 03/22: Patient noted with still hyperkalemia, will give additional Kayxalate today, Pulm to assess weaning steroids. Patient remains on oxygen supplementation 03/23: Kionex ordered due to elevated potassium. Recheck tomorrow AM. D/w pulmonary. Will start tapering steroids. May need home O2, walk test ordered and cm consult for home oxygen placed. Plan for potential d/c tomorrow. Assessment and plan: This is a 51-year-old female with asthma, HTN, morbid obesity admitted with new onset CHF with exacerbation and acute hypoxic and hypercapnic respiratory failure Neuro: NAD -Reorientation as needed -Maintain sleep-wake cycle -As needed analgesia Cardiac: New Onset Congestive Heart failure, Diastolic heart failure. h/o HTN -Cardiology consulted, appreciate recommendations -Admit proBNP 2855 -Blood pressure monitoring per protocol -S/p diuresis with Lasix -Echocardiogram shows EF 55 to 60%. Flattened septum consistent with right ventricular volume and pressure overload. HOLD MYRON-i due to renal fx. Respiratory: Acute hypoxic hypercapnic respiratory failure, Obesity hypoventilation syndrome, h/o asthma -CCM consulted, appreciate recommendations -BiPAP therapy -Pulmonary hygiene -SPO2 monitor per protocol -[place] Pulmicort -Steroids -Outpatient follow-up with pulmonology for PFTs GI: Morbid Obesity -PPI -CC diet -Lifestyle and dietary modifications strongly encouraged : Acute kidney injury likely secondary to vasomotor nephropathy, hyperkalemia, hyperphosphatemia -Nephrology consulted, appreciate recommendations -Monitor intake and output -Renally dose medications -Avoid nephrotoxic medications -03/19 FeNa 0.01% -Renal ultrasound pending -Trend BMP -Kayexalate for hyperkalemia ID: NAD -Monitor WBC and temperature curve Endo: NAD -Avoid hypoglycemia -SSI -Accu-Cheks q. 6 while n.p.o. Heme: NAD -Trend CBC -Transfuse hemoglobin less than 7 -SCDs to BLE while in bed #Advance care planning Disease education conducted, care plan discussed, diagnoses discussed, prognosis discussed, patient is full code, patient acknowledges understanding and agree with care plan, +30 minutes. Time spent: +35 min CPT 09855 History Interval history: No acute complaints on encounter this AM. Hospitalist Physical - Physical exam Narrative exam: General appearance: Present: well-nourished, obese (Morbidly obese), other (bipap) - EENT Eyes: Present: PERRL, EOM intact ENT: hearing intact, clear oral mucosa, dentition normal - Neck Neck: Present: normal ROM - Respiratory Respiratory effort: normal Respiratory: bilateral: diminished - Cardiovascular Rhythm: regular Heart Sounds: Present: S1 & S2. Absent: systolic murmur, diastolic murmur - Extremities Extremities: no ischemia, pulses intact, pulses symmetrical, No edema, normal temperature, normal color Peripheral Pulses: within normal limits - Abdominal General gastrointestinal: soft, non-tender, non-distended, normal bowel sounds - Integumentary Integumentary: Present: warm, dry - Psychiatric Psychiatric: cooperative - Neurologic Neurologic: CNII-XII intact, no focal deficits, moves all extremities - Allied Health Allied health notes reviewed: nursing, RT, social work - Constitutional Vitals: Temp Pulse Resp BP Pulse Ox 98.6 F 85 14 135/78 96 03/23/22 04:30 03/23/22 04:31 03/23/22 04:31 03/23/22 04:30 03/23/22 04:31 General appearance: Present: well-nourished, obese (Morbidly obese), other (bipap) HEART Score - HEART Score Troponin: Troponin T < 0.010 ng/mL (0.00-0.029) 03/16/22 18:29 Results - Labs CBC & Chem 7: 03/22/22 06:58 03/23/22 04:00 Labs: Laboratory Last Values WBC 6.0 K/mm3 (4.5-11.0) 03/22/22 06:58 RBC 3.62 M/mm3 (3.65-5.03) L 03/22/22 06:58 Hgb 8.6 gm/dl (10.1-14.3) L 03/22/22 06:58 Hct 28.4 % (30.3-42.9) L 03/22/22 06:58 MCV 78 fl (79-97) L 03/22/22 06:58 MCH 24 pg (28-32) L 03/22/22 06:58 MCHC 30 % (30-34) 03/22/22 06:58 RDW 19.9 % (13.2-15.2) H 03/22/22 06:58 Plt Count 175 K/mm3 (140-440) 03/22/22 06:58 Lymph % (Auto) 11.2 % (13.4-35.0) L 03/17/22 05:10 [place] % (Auto) 15.2 % (0.0-7.3) H 03/17/22 05:10 Eos % (Auto) 0.4 % (0.0-4.3) 03/17/22 05:10 Baso % (Auto) 0.1 % (0.0-1.8) 03/17/22 05:10 Lymph # (Auto) 1.1 K/mm3 (1.2-5.4) L 03/17/22 05:10 [place] # (Auto) 1.5 K/mm3 (0.0-0.8) H 03/17/22 05:10 Eos # (Auto) 0.0 K/mm3 (0.0-0.4) 03/17/22 05:10 Baso # (Auto) 0.0 K/mm3 (0.0-0.1) 03/17/22 05:10 Seg Neutrophils % 73.1 % (40.0-70.0) H 03/17/22 05:10 Seg Neutrophils # 7.1 K/mm3 (1.8-7.7) 03/17/22 05:10 PT 15.9 Sec. (12.2-14.9) H 03/16/22 18:29 INR 1.14 (0.87-1.13) H 03/16/22 18:29 APTT 29.2 Sec. (24.2-36.6) 03/16/22 18:29 ABG pH 7.246 pH Units (7.350-7.450) L 03/18/22 17:23 ABG pCO2 87.1 mm Hg 03/18/22 17:23 ABG pO2 77.6 mm Hg (80.0-90.0) L 03/18/22 17:23 ABG HCO3 37.0 mmol/L (20.0-26.0) H 03/18/22 17:23 ABG O2 Saturation 95.2 % (95.0-99.0) 03/18/22 17:23 ABG O2 Content 10.8 (0.0-44) 03/18/22 17:23 ABG Base Excess 8.1 mmol/L (-2.0-3.0) H 03/18/22 17:23 ABG Hemoglobin 8.1 gm/dl (12.0-16.0) L 03/18/22 17:23 ABG Carboxyhemoglobin 1.7 % (0.0-5.0) 03/18/22 17:23 ABG Methemoglobin 0.4 % (0.0-1.5) 03/18/22 17: Oxyhemoglobin 93.1 % (95.0-99.0) L 03/18/22 17:23 FiO2 40 % 03/18/22 17:23 Sodium 140 mmol/L (137-145) 03/22/22 06:58 Potassium 5.7 mmol/L (3.6-5.0) H 03/22/22 06:58 Chloride 97.7 mmol/L (98-107) L 03/22/22 06:58 Carbon Dioxide 36 mmol/L (22-30) H 03/22/22 06:58 Anion Gap 12 mmol/L 03/22/22 06:58 BUN 32 mg/dL (7-17) H 03/22/22 06:58 Creatinine 1.0 mg/dL (0.6-1.2) 03/22/22 06:58 Estimated GFR > 60 ml/min 03/22/22 06:58 BUN/Creatinine Ratio 32 % 03/22/22 06:58 Glucose 116 mg/dL (65-100) H 03/22/22 06:58 POC Glucose 114 mg/dL (70-105) H 03/19/22 01:16 Calcium 8.7 mg/dL (8.4-10.2) 03/22/22 06:58 Phosphorus 6.70 mg/dL (2.5-4.5) H 03/18/22 05:35 Magnesium 2.50 mg/dL (1.7-2.3) H 03/18/22 16:32 Total Bilirubin 0.80 mg/dL (0.1-1.2) 03/18/22 05:35 AST 25 units/L (5-40) 03/18/22 05:35 ALT 15 units/L (7-56) 03/18/22 05:35 Alkaline Phosphatase 80 units/L (35-129) 03/18/22 05:35 Troponin T < 0.010 ng/mL (0.00-0.029) 03/16/22 18:29 NT-Pro-B Natriuret Pep 2855 pg/mL (0-450) H 03/16/22 18:29 Total Protein 7.4 g/dL (6.3-8.2) 03/18/22 05:35 Albumin 3.5 g/dL (3.9-5) L 03/18/22 05:35 Albumin/Globulin Ratio 0.9 % 03/18/22 05:35 Urine Creatinine 249.2 mg/dL (0.1-20.0) H 03/19/22 09:30 Urine Sodium 10 mmol/L 03/19/22 09:30 Urine Urea Nitrogen 413 03/19/22 09:30 Beatty/IV: Voiding Method Indwelling Catheter Active Medications - Current Medications Current Medications: Generic Name Dose Route Start Last Admin Trade Name Freq PRN Reason Stop Dose Admin Albuterol 2.5 mg 03/19/22 15:36 03/22/22 08:51 Albuterol 2.5 Mg/3 Ml Nebu IH 2.5 mg Q4HRT PRN Administration Shortness Of Breath Budesonide 0.5 mg 03/19/22 12:00 03/22/22 20:40 Budesonide 0.5 Mg/2 Ml Nebu IH 0.5 mg Q12HRT ARAMIS Administration Famotidine 20 mg 03/17/22 11:00 03/22/22 22:16 Famotidine 20 Mg Tab PO 20 mg BID ARAMIS Administration Heparin Sodium (Porcine) 5,000 unit 03/17/22 06:00 03/23/22 06:13 Heparin 5,000 Unit/1 Ml Vial SUB-Q 5,000 unit Q8HR ARAMIS Administration Methylprednisolone Sodium Succinate 60 mg 03/17/22 22:00 03/23/22 06:13 Methylprednisolone Sod Succinate 125 Mg/2 Ml Inj IV 60 mg Q8HR ARAMIS Administration Sodium Polystyrene Sulfonate 30 gm 03/23/22 08:35 Sodium Polystyrene 15 Gm/60 Ml Oral Liqd PO 03/23/22 08:36 ONCE ONE
[2022-03-23] MEDS: BUDESONIDE 0.5 MG/2 ML NEBU IH SCH ×2 (08:53→19:55)
[2022-03-23] MEDS: ALBUTEROL 2.5 MG/3 ML NEBU IH PRN (08:53)
[2022-03-23 08:56] LABS: BUN/Creatinine Ratio 31; Blood Urea Nitrogen 28 mg/dL (7-17); Calcium 8.7 mg/dL (8.4-10.2); Hemolysis Index 9
[2022-03-23] MEDS ORDERED: SODIUM POLYSTYRENE 15 GM/60 ML ORAL LIQD PO SCH (09:00)
[2022-03-23] MEDS: FAMOTIDINE 20 MG TAB PO SCH ×2 (09:45→22:51)
--- NOTE | 2022-03-23 10:14 | Progress Note ---
Assessment and Plan Impression: * Nonolguric acute kidney injury - ?related to aggressive diuresis * Acute hypoxic/hypercapnic respiratory failure * Hyperkalemia * Respiratory alkalosis Plan: * STEPHEN resolved. SCr wnl. Okay to discontinue mason catheter from a renal standpoint * Diuresis prn * Continue Kayexelate * Restrict dietary K intake * Dose medications for renal function * Avoid potential nephrotoxins Subjective Date of service: 03/23/22 Principal diagnosis: Acute respiratory failure, obesity hypoventilation syndrome Interval history: Patient has no complaints. Currently on 2L NC oxygen. Objective - Vital Signs Vital signs: Vital Signs - 12hr 03/23/22 03/23/22 03/23/22 00:06 00:07 00:30 Temperature 98.6 F Pulse Rate 85 94 H 88 Respiratory 20 19 Rate Blood Pressure 112/61 O2 Sat by Pulse 88 92 97 Oximetry 03/23/22 03/23/22 04:30 04:31 Temperature 98.6 F Pulse Rate 85 85 Respiratory 20 14 Rate Blood Pressure 135/78 O2 Sat by Pulse 96 96 Oximetry - General Appearance General appearance: well-developed, well-nourished, obese EENT: ATNC Respiratory: Present: Decreased Breath Sounds Cardiology: regular, S1S2 Gastrointestinal: obese Integumentary: warm and dry Neurologic: alert and oriented x3 Musculoskeletal: other (trace to 1+ edema) Psychiatric: cooperative - Lab 03/22/22 06:58 03/23/22 04:00 Most recent lab results ABG pH 7.246 pH Units (7.350-7.450) L 03/18/22 17:23 ABG pCO2 87.1 mm Hg 03/18/22 17:23 ABG pO2 77.6 mm Hg (80.0-90.0) L 03/18/22 17:23 ABG HCO3 37.0 mmol/L (20.0-26.0) H 03/18/22 17:23 ABG O2 Saturation 95.2 % (95.0-99.0) 03/18/22 17:23 Calcium 8.7 mg/dL (8.4-10.2) 03/23/22 04:00 Phosphorus 6.70 mg/dL (2.5-4.5) H 03/18/22 05:35 Magnesium 2.50 mg/dL (1.7-2.3) H 03/18/22 16:32 Urine Creatinine 249.2 mg/dL (0.1-20.0) H 03/19/22 09:30 Urine Sodium 10 mmol/L 03/19/22 09:30 Medications & Allergies - Medications Allergies/Adverse Reactions: Allergies Sulfa (Sulfonamide Antibiotics) Adverse Reaction (Severe, Verified 03/18/22 16:52) "Eyes Breakout" Patient described reaction to be that her eyes breakout and develop a substance around them. Home Medications: Home Medications Medication Instructions Recorded Confirmed Last Taken Type Albuterol Mdi (or & Nicu Only) 1 puff IH Q4H PRN 03/18/22 03/18/22 Unknown History [ProAir HFA Inhaler] Albuterol Sulfate [Albuterol 0.63% 0.83 mg IH Q4H PRN 03/18/22 03/18/22 Unknown History NEBS] Difluprednate [Durezol] 1 drop OU DAILY 03/18/22 03/18/22 Unknown History Fluticasone/Salmeterol [Advair 1 puff IH BID 03/18/22 03/18/22 Unknown History Diskus 250-50 mcg] Montelukast [Singulair] 10 mg PO QPM 03/18/22 03/18/22 Unknown History Tobramycin/Dexameth 0.1-0.3% 1 drop OS BID 03/18/22 03/18/22 Unknown History [Tobradex] prednisoLONE ACETATE 1% [Pred 1 drop OS QID 03/18/22 03/18/22 Unknown History Forte 1%] Active Medications: Generic Name Dose Route Start Last Admin Trade Name Freq PRN Reason Stop Dose Admin Albuterol 2.5 mg 03/19/22 15:36 03/23/22 08:53 Albuterol 2.5 Mg/3 Ml Nebu IH 2.5 mg Q4HRT PRN Administration Shortness Of Breath Budesonide 0.5 mg 03/19/22 12:00 03/23/22 08:53 Budesonide 0.5 Mg/2 Ml Nebu IH 0.5 mg Q12HRT ARAMIS Administration Famotidine 20 mg 03/17/22 11:00 03/23/22 09:45 Famotidine 20 Mg Tab PO 20 mg BID ARAMIS Administration Heparin Sodium (Porcine) 5,000 unit 03/17/22 06:00 03/23/22 06:13 Heparin 5,000 Unit/1 Ml Vial SUB-Q 5,000 unit Q8HR ARAMIS Administration Methylprednisolone Sodium Succinate 60 mg 03/17/22 22:00 03/23/22 06:13 Methylprednisolone Sod Succinate 125 Mg/2 Ml Inj IV 60 mg Q8HR ARAMIS Administration Sodium Polystyrene Sulfonate 30 gm 03/23/22 09:00 03/23/22 09:45 Sodium Polystyrene 15 Gm/60 Ml Oral Liqd PO 03/23/22 14:00 30 gm ONCE@0900 ARAMIS Administration
--- NOTE | 2022-03-23 13:09 | Progress Note ---
Assessment and Plan 51 y/o morbidly obese female with acute hypoxic hypercapnic respiratory failure. 03/23/22: Dropped steroids to 40 q12. At discharge suggest the followin daily for 3 days, 40 daily for 3 days, 20 daily for 3 days then stop. Walk test if possible. Cannot refer for NIV therapy without knowing if patient is funded. Will discuss with CM. 03/22/22: Bariatric surgery cutoff BMI at this hospital is 60 so not a candidate for surgery here. Would like to start weaning steroids but if still on HFNC today will reassess tomorrow. Continue PPV at night and PRN. 03/21/22: place on bipap now. bipap qhs and PRN during the day. Will discuss getting NIV with patient, she qualifies based on blood gas and OHS. 03/20/22: Continue Tele monitoring. Ok with steroids. PPV at night. Guarded prognosis. 03/19/22: Transfer back to floor or IMCU. Follow up renal ultrasound. Would not suggest IVF. If pre renal would allow patient to correct on her own 1. Continuous bipap therapy 2. Repeat ABG in about 1-2 hours 3. NPO 4. Hold on diuretic therapy, need to repeat chemistry. 5. If given a break on bipap, must be put back on tonight 6. Consider Bariatric surgery evaluation as outpatient 7. Guarded prognosis. Subjective Date of service: 03/23/22 Principal diagnosis: Acute respiratory failure, obesity hypoventilation syndrome Interval history: No acute events. Down to 2 liters NC. Demographics is still not listed normally in her chart so not sure who her insurer is. Objective Vital Signs - 12hr 03/23/22 03/23/22 03/23/22 04:30 04:31 08:29 Temperature 98.6 F 98.0 F Pulse Rate 85 85 88 Respiratory 20 14 22 Rate Blood Pressure 135/78 144/92 O2 Sat by Pulse 96 96 94 Oximetry 03/23/22 11:03 Temperature Pulse Rate Respiratory Rate Blood Pressure O2 Sat by Pulse 96 Oximetry Constitutional: other (morbidly, morbidly obese) ENT: oropharynx dry Neck: other (neck cir is greater than 30) Effort: mildly labored Ascultation: Bilateral: diminished breath sounds Percussion: Bilateral: not dull Cardiovascular: regular rate and rhythm Gastrointestinal: normoactive bowel sounds Extremities: anasarca CBC and BMP: 03/22/22 06:58 03/23/22 04:00 ABG, PT/INR, D-dimer: ABG ABG pH 7.246 pH Units (7.350-7.450) L 03/18/22 17:23 ABG pCO2 87.1 mm Hg 03/18/22 17:23 ABG pO2 77.6 mm Hg (80.0-90.0) L 03/18/22 17:23 ABG O2 Saturation 95.2 % (95.0-99.0) 03/18/22 17:23 PT/INR, D-dimer PT 15.9 Sec. (12.2-14.9) H 03/16/22 18:29 INR 1.14 (0.87-1.13) H 03/16/22 18:29 Abnormal lab findings: Abnormal Labs 03/16/22 03/16/22 03/16/22 18:29 18:29 18:29 RBC Hgb 8.6 L Hct 29.4 L MCV MCH 23 L MCHC 29 L RDW 20.0 H Lymph % (Auto) Atkinson % (Auto) 13.9 H Lymph # (Auto) Atkinson # (Auto) 1.2 H Seg Neutrophils % PT 15.9 H INR 1.14 H ABG pH ABG pO2 ABG HCO3 ABG O2 Saturation ABG Base Excess ABG Hemoglobin Oxyhemoglobin Sodium 132 L Potassium 5.2 H Chloride 90.9 L Carbon Dioxide 33 H BUN Creatinine Glucose POC Glucose Calcium Phosphorus Magnesium NT-Pro-B Natriuret Pep 2855 H Albumin 3.7 L Urine Creatinine 03/16/22 03/17/22 03/17/22 19:35 05:10 05:10 RBC Hgb 8.6 L Hct MCV MCH 23 L MCHC 28 L RDW 20.4 H Lymph % (Auto) 11.2 L Atkinson % (Auto) 15.2 H Lymph # (Auto) 1.1 L Atkinson # (Auto) 1.5 H Seg Neutrophils % 73.1 H PT INR ABG pH 7.268 L ABG pO2 53.0 L ABG HCO3 35.5 H ABG O2 Saturation 78.5 L ABG Base Excess 7.0 H ABG Hemoglobin 8.8 L Oxyhemoglobin 76.5 L Sodium 134 L Potassium 6.3 H* D Chloride 93.9 L Carbon Dioxide 37 H BUN Creatinine Glucose POC Glucose Calcium 8.3 L Phosphorus Magnesium NT-Pro-B Natriuret Pep Albumin Urine Creatinine 03/17/22 03/18/22 03/18/22 23:05 05:35 12:00 RBC Hgb Hct MCV MCH MCHC RDW Lymph % (Auto) Atkinson % (Auto) Lymph # (Auto) Atkinson # (Auto) Seg Neutrophils % PT INR ABG pH 7.194 L* ABG pO2 ABG HCO3 37.8 H ABG O2 Saturation ABG Base Excess 8.1 H ABG Hemoglobin 8.0 L Oxyhemoglobin 94.4 L Sodium 133 L Potassium 6.0 H 6.2 H* Chloride 92.1 L Carbon Dioxide 31 H BUN 19 H Creatinine 1.7 H D Glucose 113 H POC Glucose Calcium Phosphorus 6.70 H Magnesium 2.40 H 2.40 H NT-Pro-B Natriuret Pep Albumin 3.5 L Urine Creatinine 03/18/22 03/18/22 03/18/22 16:32 17:23 18:01 RBC Hgb Hct MCV MCH MCHC RDW Lymph % (Auto) Atkinson % (Auto) Lymph # (Auto) Atkinson # (Auto) Seg Neutrophils % PT INR ABG pH 7.246 L ABG pO2 77.6 L ABG HCO3 37.0 H ABG O2 Saturation ABG Base Excess 8.1 H ABG Hemoglobin 8.1 L Oxyhemoglobin 93.1 L Sodium Potassium 6.2 H* Chloride Carbon Dioxide BUN Creatinine Glucose POC Glucose 114 H Calcium Phosphorus Magnesium 2.50 H NT-Pro-B Natriuret Pep Albumin Urine Creatinine 03/18/22 03/19/22 03/19/22 18:48 01:16 04:38 RBC Hgb Hct MCV MCH MCHC RDW Lymph % (Auto) Atkinson % (Auto) Lymph # (Auto) Atkinson # (Auto) Seg Neutrophils % PT INR ABG pH ABG pO2 ABG HCO3 ABG O2 Saturation ABG Base Excess ABG Hemoglobin Oxyhemoglobin Sodium 133 L Potassium 5.9 H Chloride 92.4 L Carbon Dioxide 33 H BUN 32 H Creatinine 2.3 H Glucose 111 H POC Glucose 136 H 114 H Calcium Phosphorus Magnesium NT-Pro-B Natriuret Pep Albumin Urine Creatinine 03/19/22 03/20/22 03/21/22 09:30 23:16 10:49 RBC Hgb Hct MCV MCH MCHC RDW Lymph % (Auto) Atkinson % (Auto) Lymph # (Auto) Atkinson # (Auto) Seg Neutrophils % PT INR ABG pH ABG pO2 ABG HCO3 ABG O2 Saturation ABG Base Excess ABG Hemoglobin Oxyhemoglobin Sodium Potassium 5.6 H 5.5 H Chloride 95.1 L 95.0 L Carbon Dioxide 36 H 37 H BUN 41 H 40 H Creatinine 1.3 H Glucose 119 H 139 H POC Glucose Calcium Phosphorus Magnesium NT-Pro-B Natriuret Pep Albumin Urine Creatinine 249.2 H 03/22/22 03/22/22 03/23/22 06:58 06:58 04:00 RBC 3.62 L Hgb 8.6 L Hct 28.4 L MCV 78 L MCH 24 L MCHC RDW 19.9 H Lymph % (Auto) Atkinson % (Auto) Lymph # (Auto) Atkinson # (Auto) Seg Neutrophils % PT INR ABG pH ABG pO2 ABG HCO3 ABG O2 Saturation ABG Base Excess ABG Hemoglobin Oxyhemoglobin Sodium Potassium 5.7 H 5.6 H Chloride 97.7 L 97.9 L Carbon Dioxide 36 H 39 H BUN 32 H 28 H Creatinine Glucose 116 H 117 H POC Glucose Calcium Phosphorus Magnesium NT-Pro-B Natriuret Pep Albumin Urine Creatinine
[2022-03-23] MEDS: methylPREDNISolone Sod Succinate 40 MG/1 ML INJ IV SCH (18:35)
[2022-03-23] MEDS ORDERED: methylPREDNISolone Sod Succinate 125 MG/2 ML INJ IV SCH (22:00)
[2022-03-24] MEDS: methylPREDNISolone Sod Succinate 40 MG/1 ML INJ IV SCH ×2 (05:19→17:56)
[2022-03-24] MEDS: HEPARIN 5,000 UNIT/1 ML VIAL SUB-Q SCH ×3 (05:19→22:30)
--- NOTE | 2022-03-24 08:36 | Progress Note ---
Assessment and Plan Assessment and plan: This is 51 year old female with asthma, hypertension, morbid obesity who presented to emergency department on 03/16 with shortness of breath over the past 2 to 3 weeks, occasional appropriate adductive cough of white sputum and orthopnea. In the emergency department ABG was 7.268, 79.5, 53.0, 35.5 on 78% SPO2, CXR compatible with CHF exacerbation and proBNP was 2055. Patient was placed on BiPAP and given Lasix, nebulized breathing treatments and admitted to the hospital service with consults to cardiology. Hospital course to date: 03/17: Pulmonology consulted, remains on BiPAP 03/18: Hyperkalemia 6.2 corrected with Kayexalate and insulin and dextrose, acute kidney injury probably secondary to overdiuresis and lisinopril discontinued, patient was on high flow nasal cannula but was transferred to ICU on BiPAP therapy for possible intubation. Intubation did not occur. 03/19: Remains on BiPAP, hyperkalemia corrected, worsening renal function therefore nephrology was consulted. Patient will be transferred back to the floor. 03/19: Transitioned to Hi flow nasal cannula 30/45. However recommend continue bipap qhs. D/w RT to aggressively wean as sat tolerate > 90%. Would recommend additional volume for renal function .Will continue to trend Cr at this time. 03/21: Continue supportive care. Patient continues on high flow at 30/45%. I do strongly discussed with the team to use the BiPAP at night as she was intermittently falling asleep while she was speaking. Aspiration precautions. I requested repeat labs to see what was found with renal function. She does have a Beatty catheter in place which will be evaluated prior to discharge. Counseling provided again on obesity management. Outpatient referral to obesity clinic to be done. 03/22: Patient noted with still hyperkalemia, will give additional Kayxalate today, Pulm to assess weaning steroids. Patient remains on oxygen supplementation 03/23: Kionex ordered due to elevated potassium. Recheck tomorrow AM. D/w pulmonary. Will start tapering steroids. May need home O2, walk test ordered and cm consult for home oxygen placed. Plan for potential d/c tomorrow. 03/24: Waiting physical therapy evaluation. Pulmonology recs noted. Continue to wean steroids. Anticipate discharge by the end of the week. Discharge planning conducted with CM. Assessment and plan: This is a 51-year-old female with asthma, HTN, morbid obesity admitted with new onset CHF with exacerbation and acute hypoxic and hypercapnic respiratory failure Neuro: NAD -Reorientation as needed -Maintain sleep-wake cycle -As needed analgesia Cardiac: New Onset Congestive Heart failure, Diastolic heart failure. h/o HTN -Cardiology consulted, appreciate recommendations -Admit proBNP 2855 -Blood pressure monitoring per protocol -S/p diuresis with Lasix -Echocardiogram shows EF 55 to 60%. Flattened septum consistent with right ventricular volume and pressure overload. HOLD MYRON-i due to renal fx. Respiratory: Acute hypoxic hypercapnic respiratory failure, Obesity hypoventilation syndrome, h/o asthma -CCM consulted, appreciate recommendations -BiPAP therapy -Pulmonary hygiene -SPO2 monitor per protocol -Navin Velazquez -Steroids -Outpatient follow-up with pulmonology for PFTs GI: Morbid Obesity -PPI -CC diet -Lifestyle and dietary modifications strongly encouraged : Acute kidney injury likely secondary to vasomotor nephropathy, hyperkalemia, hyperphosphatemia -Nephrology consulted, appreciate recommendations -Monitor intake and output -Renally dose medications -Avoid nephrotoxic medications -03/19 FeNa 0.01% -Renal ultrasound pending -Trend BMP -Kayexalate for hyperkalemia ID: NAD -Monitor WBC and temperature curve Endo: NAD -Avoid hypoglycemia -SSI -Accu-Cheks q. 6 while n.p.o. Heme: NAD -Trend CBC -Transfuse hemoglobin less than 7 -SCDs to BLE while in bed #Advance care planning Disease education conducted, care plan discussed, diagnoses discussed, prognosis discussed, patient is full code, patient acknowledges understanding and agree with care plan, +30 minutes. Time spent: +35 min CPT 73821 History Interval history: No acute complaints this morning. Patient was anxious to get out of bed and be more active. I reassured her that we would get a physical therapy evaluation to ensure she was mobilized. Hospitalist Physical - Physical exam Narrative exam: General appearance: Present: well-nourished, obese (Morbidly obese), other (bipap) - EENT Eyes: Present: PERRL, EOM intact ENT: hearing intact, clear oral mucosa, dentition normal - Neck Neck: Present: normal ROM - Respiratory Respiratory effort: normal Respiratory: bilateral: diminished - Cardiovascular Rhythm: regular Heart Sounds: Present: S1 & S2. Absent: systolic murmur, diastolic murmur - Extremities Extremities: no ischemia, pulses intact, pulses symmetrical, No edema, normal temperature, normal color Peripheral Pulses: within normal limits - Abdominal General gastrointestinal: soft, non-tender, non-distended, normal bowel sounds - Integumentary Integumentary: Present: warm, dry - Psychiatric Psychiatric: cooperative - Neurologic Neurologic: CNII-XII intact, no focal deficits, moves all extremities - Allied Health Allied health notes reviewed: nursing, RT, social work - Constitutional Vitals: Temp Pulse Resp BP Pulse Ox 98.5 F 89 20 130/76 92 03/24/22 04:15 03/24/22 04:15 03/24/22 04:15 03/24/22 04:15 03/24/22 04:15 General appearance: Present: well-nourished, obese (Morbidly obese), other (bipap) HEART Score - HEART Score Troponin: Troponin T < 0.010 ng/mL (0.00-0.029) 03/16/22 18:29 Results - Labs CBC & Chem 7: 03/22/22 06:58 03/23/22 04:00 Labs: Laboratory Last Values WBC 6.0 K/mm3 (4.5-11.0) 03/22/22 06:58 RBC 3.62 M/mm3 (3.65-5.03) L 03/22/22 06:58 Hgb 8.6 gm/dl (10.1-14.3) L 03/22/22 06:58 Hct 28.4 % (30.3-42.9) L 03/22/22 06:58 MCV 78 fl (79-97) L 03/22/22 06:58 MCH 24 pg (28-32) L 03/22/22 06:58 MCHC 30 % (30-34) 03/22/22 06:58 RDW 19.9 % (13.2-15.2) H 03/22/22 06:58 Plt Count 175 K/mm3 (140-440) 03/22/22 06:58 Lymph % (Auto) 11.2 % (13.4-35.0) L 03/17/22 05:10 Franklin % (Auto) 15.2 % (0.0-7.3) H 03/17/22 05:10 Eos % (Auto) 0.4 % (0.0-4.3) 03/17/22 05:10 Baso % (Auto) 0.1 % (0.0-1.8) 03/17/22 05:10 Lymph # (Auto) 1.1 K/mm3 (1.2-5.4) L 03/17/22 05:10 Franklin # (Auto) 1.5 K/mm3 (0.0-0.8) H 03/17/22 05:10 Eos # (Auto) 0.0 K/mm3 (0.0-0.4) 03/17/22 05:10 Baso # (Auto) 0.0 K/mm3 (0.0-0.1) 03/17/22 05:10 Seg Neutrophils % 73.1 % (40.0-70.0) H 03/17/22 05:10 Seg Neutrophils # 7.1 K/mm3 (1.8-7.7) 03/17/22 05:10 PT 15.9 Sec. (12.2-14.9) H 03/16/22 18:29 INR 1.14 (0.87-1.13) H 03/16/22 18:29 APTT 29.2 Sec. (24.2-36.6) 03/16/22 18:29 ABG pH 7.246 pH Units (7.350-7.450) L 03/18/22 17:23 ABG pCO2 87.1 mm Hg 03/18/22 17:23 ABG pO2 77.6 mm Hg (80.0-90.0) L 03/18/22 17:23 ABG HCO3 37.0 mmol/L (20.0-26.0) H 03/18/22 17:23 ABG O2 Saturation 95.2 % (95.0-99.0) 03/18/22 17:23 ABG O2 Content 10.8 (0.0-44) 03/18/22 17:23 ABG Base Excess 8.1 mmol/L (-2.0-3.0) H 03/18/22 17:23 ABG Hemoglobin 8.1 gm/dl (12.0-16.0) L 03/18/22 17:23 ABG Carboxyhemoglobin 1.7 % (0.0-5.0) 03/18/22 17:23 ABG Methemoglobin 0.4 % (0.0-1.5) 03/18/22 17:23 Oxyhemoglobin 93.1 % (95.0-99.0) L 03/18/22 17:23 FiO2 40 % 03/18/22 17:23 Sodium 142 mmol/L (137-145) 03/23/22 04:00 Potassium 5.6 mmol/L (3.6-5.0) H 03/23/22 04:00 Chloride 97.9 mmol/L (98-107) L 03/23/22 04:00 Carbon Dioxide 39 mmol/L (22-30) H 03/23/22 04:00 Anion Gap 11 mmol/L 03/23/22 04:00 BUN 28 mg/dL (7-17) H 03/23/22 04:00 Creatinine 0.9 mg/dL (0.6-1.2) 03/23/22 04:00 Estimated GFR > 60 ml/min 03/23/22 04:00 BUN/Creatinine Ratio 31 % 03/23/22 04:00 Glucose 117 mg/dL (65-100) H 03/23/22 04:00 POC Glucose 114 mg/dL (70-105) H 03/19/22 01:16 Calcium 8.7 mg/dL (8.4-10.2) 03/23/22 04:00 Phosphorus 6.70 mg/dL (2.5-4.5) H 03/18/22 05:35 Magnesium 2.50 mg/dL (1.7-2.3) H 03/18/22 16:32 Total Bilirubin 0.80 mg/dL (0.1-1.2) 03/18/22 05:35 AST 25 units/L (5-40) 03/18/22 05:35 ALT 15 units/L (7-56) 03/18/22 05:35 Alkaline Phosphatase 80 units/L (35-129) 03/18/22 05:35 Troponin T < 0.010 ng/mL (0.00-0.029) 03/16/22 18:29 NT-Pro-B Natriuret Pep 2855 pg/mL (0-450) H 03/16/22 18:29 Total Protein 7.4 g/dL (6.3-8.2) 03/18/22 05:35 Albumin 3.5 g/dL (3.9-5) L 03/18/22 05:35 Albumin/Globulin Ratio 0.9 % 03/18/22 05:35 Urine Creatinine 249.2 mg/dL (0.1-20.0) H 03/19/22 09:30 Urine Sodium 10 mmol/L 03/19/22 09:30 Urine Urea Nitrogen 413 03/19/22 09:30 Beatty/IV: Voiding Method Indwelling Catheter Active Medications - Current Medications Current Medications: Generic Name Dose Route Start Last Admin Trade Name Freq PRN Reason Stop Dose Admin Albuterol 2.5 mg 03/19/22 15:36 03/23/22 08:53 Albuterol 2.5 Mg/3 Ml Nebu IH 2.5 mg Q4HRT PRN Administration Shortness Of Breath Budesonide 0.5 mg 03/19/22 12:00 03/23/22 19:55 Budesonide 0.5 Mg/2 Ml Nebu IH 0.5 mg Q12HRT ARAMIS Administration Famotidine 20 mg 03/17/22 11:00 03/23/22 22:51 Famotidine 20 Mg Tab PO 20 mg BID ARAMIS Administration Heparin Sodium (Porcine) 5,000 unit 03/17/22 06:00 03/24/22 05:19 Heparin 5,000 Unit/1 Ml Vial SUB-Q 5,000 unit Q8HR ARAMIS Administration Methylprednisolone Sodium Succinate 40 mg 03/23/22 18:00 03/24/22 05:19 Methylprednisolone Sod Succinate 40 Mg/1 Ml Inj IV 40 mg Q12H ARAMIS Administration Nutrition/Malnutrition Assess - Dietary Evaluation Nutrition/Malnutrition Findings: Nutrition Notes Start: 03/23/22 10:38 Freq: Status: Active Protocol: Document 03/23/22 10:38 GLENN (Rec: 03/23/22 10:41 GLENN [id number]) Nutrition Notes Need for Assessment generated from: LOS Initial or Follow up Brief Note Current Diet Consistent CHO Height 5 ft 4 in Weight 218 kg Petty Body Weight (kg) 54.54 BMI 82.5 Weight Status Morbidly Obese Subjective/Other Information Pt screened for LOS. She has consumed 85% of meals since admission. Percent of energy/protein needs met: 100% energy 71% pro Burn Absent Trauma Absent Current % PO Good (75-100%) Minimum of two criteria No Is patient on ventilator? No Is Patient Ambulatory and/or Out of Bed No REE-([facility]-confined to bed) 1965.618 Calculation Used for Recommendations 22-25kcal/kg IBW Additional Notes Energy needs: 1200-1364kcal/ day Pro needs 0.8-1g/kg adjBW: 109 -136g/day Fluid needs 1ml/kcal Nutrition Intervention Revisit per MD consult or patient Sign Off request:
[2022-03-24] MEDS: BUDESONIDE 0.5 MG/2 ML NEBU IH SCH ×2 (08:46→21:15)
--- NOTE | 2022-03-24 08:58 | Progress Note ---
Assessment and Plan Impression: * Nonolguric acute kidney injury - ?related to aggressive diuresis * Acute hypoxic/hypercapnic respiratory failure * Hyperkalemia * Respiratory alkalosis Plan: * AM labs unavailable * STEPHEN resolved. SCr wnl. * Okay to discontinue mason catheter from a renal standpoint * Resume Lasix 40mg daily * Continue Kayexelate * Restrict dietary K intake * Dose medications for renal function * Avoid potential nephrotoxins Subjective Date of service: 03/24/22 Principal diagnosis: Acute respiratory failure, obesity hypoventilation syndrome Interval history: Patient has no complaints. Objective - Vital Signs Vital signs: Vital Signs - 12hr 03/23/22 03/23/22 03/24/22 23:00 23:38 00:03 Temperature 98.4 F Pulse Rate 93 H 95 H Pulse Rate [ Bilateral Throughout] Respiratory 20 22 Rate Respiratory Rate [Bilateral Throughout] Blood Pressure 118/66 O2 Sat by Pulse 99 92 99 Oximetry 03/24/22 03/24/22 03/24/22 04:15 08:46 08:47 Temperature 98.5 F Pulse Rate 89 Pulse Rate [ 89 Bilateral Throughout] Respiratory 20 Rate Respiratory 18 Rate [Bilateral Throughout] Blood Pressure 130/76 O2 Sat by Pulse 92 95 Oximetry - General Appearance General appearance: well-developed, well-nourished EENT: ATNC Respiratory: Present: Decreased Breath Sounds Cardiology: regular, S1S2 Gastrointestinal: obese Musculoskeletal: other (+ edema) Psychiatric: cooperative - Lab 03/22/22 06:58 03/23/22 04:00 Most recent lab results ABG pH 7.246 pH Units (7.350-7.450) L 03/18/22 17:23 ABG pCO2 87.1 mm Hg 03/18/22 17:23 ABG pO2 77.6 mm Hg (80.0-90.0) L 03/18/22 17:23 ABG HCO3 37.0 mmol/L (20.0-26.0) H 03/18/22 17:23 ABG O2 Saturation 95.2 % (95.0-99.0) 03/18/22 17:23 Calcium 8.7 mg/dL (8.4-10.2) 03/23/22 04:00 Phosphorus 6.70 mg/dL (2.5-4.5) H 03/18/22 05:35 Magnesium 2.50 mg/dL (1.7-2.3) H 03/18/22 16:32 Urine Creatinine 249.2 mg/dL (0.1-20.0) H 03/19/22 09:30 Urine Sodium 10 mmol/L 03/19/22 09:30 Medications & Allergies - Medications Allergies/Adverse Reactions: Allergies Sulfa (Sulfonamide Antibiotics) Adverse Reaction (Severe, Verified 03/18/22 16:52) "Eyes Breakout" Patient described reaction to be that her eyes breakout and develop a substance around them. Home Medications: Home Medications Medication Instructions Recorded Confirmed Last Taken Type Albuterol Mdi (or & Nicu Only) 1 puff IH Q4H PRN 03/18/22 03/18/22 Unknown History [ProAir HFA Inhaler] Albuterol Sulfate [Albuterol 0.63% 0.83 mg IH Q4H PRN 03/18/22 03/18/22 Unknown History NEBS] Difluprednate [Durezol] 1 drop OU DAILY 03/18/22 03/18/22 Unknown History Fluticasone/Salmeterol [Advair 1 puff IH BID 03/18/22 03/18/22 Unknown History Diskus 250-50 mcg] Montelukast [Singulair] 10 mg PO QPM 03/18/22 03/18/22 Unknown History Tobramycin/Dexameth 0.1-0.3% 1 drop OS BID 03/18/22 03/18/22 Unknown History [Tobradex] prednisoLONE ACETATE 1% [Pred 1 drop OS QID 03/18/22 03/18/22 Unknown History Forte 1%] Active Medications: Generic Name Dose Route Start Last Admin Trade Name Freq PRN Reason Stop Dose Admin Albuterol 2.5 mg 03/19/22 15:36 03/23/22 08:53 Albuterol 2.5 Mg/3 Ml Nebu IH 2.5 mg Q4HRT PRN Administration Shortness Of Breath Budesonide 0.5 mg 03/19/22 12:00 03/24/22 08:46 Budesonide 0.5 Mg/2 Ml Nebu IH 0.5 mg Q12HRT ARAMIS Administration Famotidine 20 mg 03/17/22 11:00 03/23/22 22:51 Famotidine 20 Mg Tab PO 20 mg BID ARAMIS Administration Heparin Sodium (Porcine) 5,000 unit 03/17/22 06:00 03/24/22 05:19 Heparin 5,000 Unit/1 Ml Vial SUB-Q 5,000 unit Q8HR ARAMIS Administration Methylprednisolone Sodium Succinate 40 mg 03/23/22 18:00 03/24/22 05:19 Methylprednisolone Sod Succinate 40 Mg/1 Ml Inj IV 40 mg Q12H ARAMIS Administration
--- NOTE | 2022-03-24 10:41 | Progress Note ---
Assessment and Plan 51 y/o morbidly obese female with acute hypoxic hypercapnic respiratory failure. 03/24/22: No objection to changing to oral steroids in the next 12-24 hours. Same taper as below. Will arrange follow up with us pending on what insurer the patient has. At discharge should resume her home Advair dosing, nebs and continue steroid taper. Needs to be assessed for home oxygen. Room air sats should work or admit ABG. Guarded prognosis. 03/23/22: Dropped steroids to 40 q12. At discharge suggest the followin daily for 3 days, 40 daily for 3 days, 20 daily for 3 days then stop. Walk test if possible. Cannot refer for NIV therapy without knowing if patient is funded. Will discuss with CM. 03/22/22: Bariatric surgery cutoff BMI at this hospital is 60 so not a candidate for surgery here. Would like to start weaning steroids but if still on HFNC today will reassess tomorrow. Continue PPV at night and PRN. 03/21/22: place on bipap now. bipap qhs and PRN during the day. Will discuss getting NIV with patient, she qualifies based on blood gas and OHS. 03/20/22: Continue Tele monitoring. Ok with steroids. PPV at night. Guarded prognosis. 03/19/22: Transfer back to floor or IMCU. Follow up renal ultrasound. Would not suggest IVF. If pre renal would allow patient to correct on her own 1. Continuous bipap therapy 2. Repeat ABG in about 1-2 hours 3. NPO 4. Hold on diuretic therapy, need to repeat chemistry. 5. If given a break on bipap, must be put back on tonight 6. Consider Bariatric surgery evaluation as outpatient 7. Guarded prognosis. Subjective Date of service: 03/24/22 Principal diagnosis: Acute respiratory failure, obesity hypoventilation syndrome Interval history: No acute events. Renal has placed back on daily lasix therapy. Objective Vital Signs - 12hr 03/23/22 03/23/22 03/24/22 23:00 23:38 00:03 Temperature 98.4 F Pulse Rate 93 H 95 H Pulse Rate [ Bilateral Throughout] Respiratory 20 22 Rate Respiratory Rate [Bilateral Throughout] Blood Pressure 118/66 O2 Sat by Pulse 99 92 99 Oximetry 03/24/22 03/24/22 03/24/22 04:15 08:46 08:47 Temperature 98.5 F Pulse Rate 89 Pulse Rate [ 89 Bilateral Throughout] Respiratory 20 Rate Respiratory 18 Rate [Bilateral Throughout] Blood Pressure 130/76 O2 Sat by Pulse 92 95 Oximetry 03/24/22 09:32 Temperature 98.8 F Pulse Rate 94 H Pulse Rate [ Bilateral Throughout] Respiratory 18 Rate Respiratory Rate [Bilateral Throughout] Blood Pressure 121/70 O2 Sat by Pulse 94 Oximetry Constitutional: other (morbidly, morbidly obese) ENT: oropharynx dry Neck: other (neck cir is greater than 30) Effort: mildly labored Ascultation: Bilateral: diminished breath sounds Percussion: Bilateral: not dull Cardiovascular: regular rate and rhythm Gastrointestinal: normoactive bowel sounds Extremities: anasarca CBC and BMP: 03/22/22 06:58 03/23/22 04:00 ABG, PT/INR, D-dimer: ABG ABG pH 7.246 pH Units (7.350-7.450) L 03/18/22 17:23 ABG pCO2 87.1 mm Hg 03/18/22 17:23 ABG pO2 77.6 mm Hg (80.0-90.0) L 03/18/22 17:23 ABG O2 Saturation 95.2 % (95.0-99.0) 03/18/22 17:23 PT/INR, D-dimer PT 15.9 Sec. (12.2-14.9) H 03/16/22 18:29 INR 1.14 (0.87-1.13) H 03/16/22 18:29 Abnormal lab findings: Abnormal Labs 03/16/22 03/16/22 03/16/22 18:29 18:29 18:29 RBC Hgb 8.6 L Hct 29.4 L MCV MCH 23 L MCHC 29 L RDW 20.0 H Lymph % (Auto) [place] % (Auto) 13.9 H Lymph # (Auto) [place] # (Auto) 1.2 H Seg Neutrophils % PT 15.9 H INR 1.14 H ABG pH ABG pO2 ABG HCO3 ABG O2 Saturation ABG Base Excess ABG Hemoglobin Oxyhemoglobin Sodium 132 L Potassium 5.2 H Chloride 90.9 L Carbon Dioxide 33 H BUN Creatinine Glucose POC Glucose Calcium Phosphorus Magnesium NT-Pro-B Natriuret Pep 2855 H Albumin 3.7 L Urine Creatinine 09/19/22 09/20/22 09/20/22 19:35 05:10 05:10 RBC Hgb 8.6 L Hct MCV MCH 23 L MCHC 28 L RDW 20.4 H Lymph % (Auto) 11.2 L [place] % (Auto) 15.2 H Lymph # (Auto) 1.1 L [place] # (Auto) 1.5 H Seg Neutrophils % 73.1 H PT INR ABG pH 7.268 L ABG pO2 53.0 L ABG HCO3 35.5 H ABG O2 Saturation 78.5 L ABG Base Excess 7.0 H ABG Hemoglobin 8.8 L Oxyhemoglobin 76.5 L Sodium 134 L Potassium 6.3 H* D Chloride 93.9 L Carbon Dioxide 37 H BUN Creatinine Glucose POC Glucose Calcium 8.3 L Phosphorus Magnesium NT-Pro-B Natriuret Pep Albumin Urine Creatinine 03/17/22 03/18/22 03/18/22 23:05 05:35 12:00 RBC Hgb Hct MCV MCH MCHC RDW Lymph % (Auto) [place] % (Auto) Lymph # (Auto) [place] # (Auto) Seg Neutrophils % PT INR ABG pH 7.194 L* ABG pO2 ABG HCO3 37.8 H ABG O2 Saturation ABG Base Excess 8.1 H ABG Hemoglobin 8.0 L Oxyhemoglobin 94.4 L Sodium 133 L Potassium 6.0 H 6.2 H* Chloride 92.1 L Carbon Dioxide 31 H BUN 19 H Creatinine 1.7 H D Glucose 113 H POC Glucose Calcium Phosphorus 6.70 H Magnesium 2.40 H 2.40 H NT-Pro-B Natriuret Pep Albumin 3.5 L Urine Creatinine 03/18/22 03/18/22 03/18/22 16:32 17:23 18:01 RBC Hgb Hct MCV MCH MCHC RDW Lymph % (Auto) [place] % (Auto) Lymph # (Auto) [place] # (Auto) Seg Neutrophils % PT INR ABG pH 7.246 L ABG pO2 77.6 L ABG HCO3 37.0 H ABG O2 Saturation ABG Base Excess 8.1 H ABG Hemoglobin 8.1 L Oxyhemoglobin 93.1 L Sodium Potassium 6.2 H* Chloride Carbon Dioxide BUN Creatinine Glucose POC Glucose 114 H Calcium Phosphorus Magnesium 2.50 H NT-Pro-B Natriuret Pep Albumin Urine Creatinine 03/18/22 03/19/22 03/19/22 18:48 01:16 04:38 RBC Hgb Hct MCV MCH MCHC RDW Lymph % (Auto) [place] % (Auto) Lymph # (Auto) [place] # (Auto) Seg Neutrophils % PT INR ABG pH ABG pO2 ABG HCO3 ABG O2 Saturation ABG Base Excess ABG Hemoglobin Oxyhemoglobin Sodium 133 L Potassium 5.9 H Chloride 92.4 L Carbon Dioxide 33 H BUN 32 H Creatinine 2.3 H Glucose 111 H POC Glucose 136 H 114 H Calcium Phosphorus Magnesium NT-Pro-B Natriuret Pep Albumin Urine Creatinine 03/19/22 03/20/22 03/21/22 09:30 23:16 10:49 RBC Hgb Hct MCV MCH MCHC RDW Lymph % (Auto) [place] % (Auto) Lymph # (Auto) [place] # (Auto) Seg Neutrophils % PT INR ABG pH ABG pO2 ABG HCO3 ABG O2 Saturation ABG Base Excess ABG Hemoglobin Oxyhemoglobin Sodium Potassium 5.6 H 5.5 H Chloride 95.1 L 95.0 L Carbon Dioxide 36 H 37 H BUN 41 H 40 H Creatinine 1.3 H Glucose 119 H 139 H POC Glucose Calcium Phosphorus Magnesium NT-Pro-B Natriuret Pep Albumin Urine Creatinine 249.2 H 03/22/22 03/22/22 03/23/22 06:58 06:58 04:00 RBC 3.62 L Hgb 8.6 L Hct 28.4 L MCV 78 L MCH 24 L MCHC RDW 19.9 H Lymph % (Auto) [place] % (Auto) Lymph # (Auto) [place] # (Auto) Seg Neutrophils % PT INR ABG pH ABG pO2 ABG HCO3 ABG O2 Saturation ABG Base Excess ABG Hemoglobin Oxyhemoglobin Sodium Potassium 5.7 H 5.6 H Chloride 97.7 L 97.9 L Carbon Dioxide 36 H 39 H BUN 32 H 28 H Creatinine Glucose 116 H 117 H POC Glucose Calcium Phosphorus Magnesium NT-Pro-B Natriuret Pep Albumin Urine Creatinine
[2022-03-24] MEDS: FAMOTIDINE 20 MG TAB PO SCH ×2 (10:48→22:23)
[2022-03-24 19:02] LABS: Albumin 3.1 g/dL (3.8-4.8); Gamma Globulin 2.1 g/dL (0.8-1.7)
[2022-03-25] MEDS: HEPARIN 5,000 UNIT/1 ML VIAL SUB-Q SCH ×3 (05:09→21:33)
[2022-03-25] MEDS: methylPREDNISolone Sod Succinate 40 MG/1 ML INJ IV SCH (05:09)
--- NOTE | 2022-03-25 08:29 | Progress Note ---
Assessment and Plan Assessment and plan: This is 51 year old female with asthma, hypertension, morbid obesity who presented to emergency department on 03/16 with shortness of breath over the past 2 to 3 weeks, occasional appropriate adductive cough of white sputum and orthopnea. In the emergency department ABG was 7.268, 79.5, 53.0, 35.5 on 78% SPO2, CXR compatible with CHF exacerbation and proBNP was 2055. Patient was placed on BiPAP and given Lasix, nebulized breathing treatments and admitted to the hospital service with consults to cardiology. Hospital course to date: 03/17: Pulmonology consulted, remains on BiPAP 03/18: Hyperkalemia 6.2 corrected with Kayexalate and insulin and dextrose, acute kidney injury probably secondary to overdiuresis and lisinopril discontinued, patient was on high flow nasal cannula but was transferred to ICU on BiPAP therapy for possible intubation. Intubation did not occur. 03/19: Remains on BiPAP, hyperkalemia corrected, worsening renal function therefore nephrology was consulted. Patient will be transferred back to the floor. 03/19: Transitioned to Hi flow nasal cannula 30/45. However recommend continue bipap qhs. D/w RT to aggressively wean as sat tolerate > 90%. Would recommend additional volume for renal function .Will continue to trend Cr at this time. 03/21: Continue supportive care. Patient continues on high flow at 30/45%. I do strongly discussed with the team to use the BiPAP at night as she was intermittently falling asleep while she was speaking. Aspiration precautions. I requested repeat labs to see what was found with renal function. She does have a Beatty catheter in place which will be evaluated prior to discharge. Counseling provided again on obesity management. Outpatient referral to obesity clinic to be done. 03/22: Patient noted with still hyperkalemia, will give additional Kayxalate today, Pulm to assess weaning steroids. Patient remains on oxygen supplementation 03/23: Kionex ordered due to elevated potassium. Recheck tomorrow AM. D/w pulmonary. Will start tapering steroids. May need home O2, walk test ordered and cm consult for home oxygen placed. Plan for potential d/c tomorrow. 03/24: Waiting physical therapy evaluation. Pulmonology recs noted. Continue to wean steroids. Anticipate discharge by the end of the week. Discharge planning conducted with CM. 03/25: Added norvasc for better BP control. Awaiting recs from PT/OT. continue to taper steroids. Discharge planning underway. 03/26: Solu-Medrol dose dropped to 40 mg IV every 24 hour. Awaiting PT OT input. We will also need home oxygen (please refer to RN O2 evaluation note) on discharge Assessment and plan: This is a 51-year-old female with asthma, HTN, morbid obesity admitted with new onset CHF with exacerbation and acute hypoxic and hypercapnic respiratory failure Neuro: NAD -Reorientation as needed -Maintain sleep-wake cycle -As needed analgesia Cardiac: New Onset Congestive Heart failure, Diastolic heart failure. h/o HTN -Cardiology consulted, appreciate recommendations -Admit proBNP 2855 -Blood pressure monitoring per protocol -S/p diuresis with Lasix -Echocardiogram shows EF 55 to 60%. Flattened septum consistent with right ventricular volume and pressure overload. HOLD MYRON-i due to renal fx. - add norvsac for BP control Respiratory: Acute hypoxic hypercapnic respiratory failure, Obesity hypoventilation syndrome, h/o asthma -CCM consulted, appreciate recommendations -BiPAP therapy -Pulmonary hygiene -SPO2 monitor per protocol -Marcus Pulmicort -Steroids -Outpatient follow-up with pulmonology for PFTs GI: Morbid Obesity -PPI -CC diet -Lifestyle and dietary modifications strongly encouraged : Acute kidney injury likely secondary to vasomotor nephropathy, hyperkalemia, hyperphosphatemia -Nephrology consulted, appreciate recommendations -Monitor intake and output -Renally dose medications -Avoid nephrotoxic medications -03/19 FeNa 0.01% -Renal ultrasound pending -Trend BMP -Kayexalate for hyperkalemia ID: NAD -Monitor WBC and temperature curve Endo: NAD -Avoid hypoglycemia -SSI -Accu-Cheks q. 6 while n.p.o. Heme: NAD -Trend CBC -Transfuse hemoglobin less than 7 -SCDs to BLE while in bed #Advance care planning Disease education conducted, care plan discussed, diagnoses discussed, prognosis discussed, patient is full code, patient acknowledges understanding and agree with care plan, +30 minutes. Time spent: +35 min CPT 58567 History Interval history: No acute complaints this AM. Anxious to get out of bed and work with PT. Hospitalist Physical - Physical exam Narrative exam: General appearance: Present: well-nourished, obese (Morbidly obese), nasal cannula - EENT Eyes: Present: PERRL, EOM intact ENT: hearing intact, clear oral mucosa, dentition normal - Neck Neck: Present: normal ROM - Respiratory Respiratory effort: normal Respiratory: bilateral: diminished - Cardiovascular Rhythm: regular Heart Sounds: Present: S1 & S2. Absent: systolic murmur, diastolic murmur - Extremities Extremities: no ischemia, pulses intact, pulses symmetrical, No edema, normal temperature, normal color Peripheral Pulses: within normal limits - Abdominal General gastrointestinal: soft, non-tender, non-distended, normal bowel sounds - Integumentary Integumentary: Present: warm, dry - Psychiatric Psychiatric: cooperative - Neurologic Neurologic: CNII-XII intact, no focal deficits, moves all extremities - Allied Health Allied health notes reviewed: nursing, RT, social work - Constitutional Vitals: Temp Pulse Resp BP Pulse Ox 98.9 F 94 H 18 158/103 99 03/25/22 03:25 03/25/22 04:00 03/25/22 03:25 03/25/22 03:25 03/25/22 03:25 General appearance: Present: well-nourished, obese (Morbidly obese), other (bipap) HEART Score - HEART Score Troponin: Troponin T < 0.010 ng/mL (0.00-0.029) 03/16/22 18:29 Results - Labs CBC & Chem 7: 03/22/22 06:58 03/23/22 04:00 Labs: Laboratory Last Values WBC 6.0 K/mm3 (4.5-11.0) 03/22/22 06:58 RBC 3.62 M/mm3 (3.65-5.03) L 03/22/22 06:58 Hgb 8.6 gm/dl (10.1-14.3) L 03/22/22 06:58 Hct 28.4 % (30.3-42.9) L 03/22/22 06:58 MCV 78 fl (79-97) L 03/22/22 06:58 MCH 24 pg (28-32) L 03/22/22 06:58 MCHC 30 % (30-34) 03/22/22 06:58 RDW 19.9 % (13.2-15.2) H 03/22/22 06:58 Plt Count 175 K/mm3 (140-440) 03/22/22 06:58 Lymph % (Auto) 11.2 % (13.4-35.0) L 03/17/22 05:10 [place] % (Auto) 15.2 % (0.0-7.3) H 03/17/22 05:10 Eos % (Auto) 0.4 % (0.0-4.3) 03/17/22 05:10 Baso % (Auto) 0.1 % (0.0-1.8) 03/17/22 05:10 Lymph # (Auto) 1.1 K/mm3 (1.2-5.4) L 03/17/22 05:10 [place] # (Auto) 1.5 K/mm3 (0.0-0.8) H 03/17/22 05:10 Eos # (Auto) 0.0 K/mm3 (0.0-0.4) 03/17/22 05:10 Baso # (Auto) 0.0 K/mm3 (0.0-0.1) 03/17/22 05:10 Seg Neutrophils % 73.1 % (40.0-70.0) H 03/17/22 05:10 Seg Neutrophils # 7.1 K/mm3 (1.8-7.7) 03/17/22 05:10 PT 15.9 Sec. (12.2-14.9) H 03/16/22 18:29 INR 1.14 (0.87-1.13) H 03/16/22 18:29 APTT 29.2 Sec. (24.2-36.6) 03/16/22 18:29 ABG pH 7.246 pH Units (7.350-7.450) L 03/18/22 17:23 ABG pCO2 87.1 mm Hg 03/18/22 17:23 ABG pO2 77.6 mm Hg (80.0-90.0) L 03/18/22 17:23 ABG HCO3 37.0 mmol/L (20.0-26.0) H 03/18/22 17:23 ABG O2 Saturation 95.2 % (95.0-99.0) 03/18/22 17:23 ABG O2 Content 10.8 (0.0-44) 03/18/22 17:23 ABG Base Excess 8.1 mmol/L (-2.0-3.0) H 03/18/22 17:23 ABG Hemoglobin 8.1 gm/dl (12.0-16.0) L 03/18/22 17:23 ABG Carboxyhemoglobin 1.7 % (0.0-5.0) 03/18/22 17: ABG Methemoglobin 0.4 % (0.0-1.5) 03/18/22 17: Oxyhemoglobin 93.1 % (95.0-99.0) L 03/18/22 17: FiO2 40 % 03/18/22 17: Sodium 142 mmol/L (137-145) 03/23/22 04:00 Potassium 5.6 mmol/L (3.6-5.0) H 03/23/22 04:00 Chloride 97.9 mmol/L (98-107) L 03/23/22 04:00 Carbon Dioxide 39 mmol/L (22-30) H 03/23/22 04:00 Anion Gap 11 mmol/L 03/23/22 04:00 BUN 28 mg/dL (7-17) H 03/23/22 04:00 Creatinine 0.9 mg/dL (0.6-1.2) 03/23/22 04:00 Estimated GFR > 60 ml/min 03/23/22 04:00 BUN/Creatinine Ratio 31 % 03/23/22 04:00 Glucose 117 mg/dL (65-100) H 03/23/22 04:00 POC Glucose 114 mg/dL (70-105) H 03/19/22 01:16 Calcium 8.7 mg/dL (8.4-10.2) 03/23/22 04:00 Phosphorus 6.70 mg/dL (2.5-4.5) H 03/18/22 05:35 Magnesium 2.50 mg/dL (1.7-2.3) H 03/18/22 16:32 Total Bilirubin 0.80 mg/dL (0.1-1.2) 03/18/22 05:35 AST 25 units/L (5-40) 03/18/22 05:35 ALT 15 units/L (7-56) 03/18/22 05:35 Alkaline Phosphatase 80 units/L (35-129) 03/18/22 05:35 Troponin T < 0.010 ng/mL (0.00-0.029) 03/16/22 18:29 NT-Pro-B Natriuret Pep 2855 pg/mL (0-450) H 03/16/22 18:29 Serum Total Protein 7.4 g/dL (6.1-8.1) 03/20/22 Unknown Total Protein 7.4 g/dL (6.3-8.2) 03/18/22 05:35 Albumin 3.1 g/dL (3.8-4.8) L 03/20/22 Unknown Albumin/Globulin Ratio 0.9 % 03/18/22 05:35 Oubyk-3-Cdfunwgwv 0.4 g/dL (0.2-0.3) H 03/20/22 Unknown Efqmq-3-Fdzcysgbt 0.9 g/dL (0.5-0.9) 03/20/22 Unknown Beta Globulins 0.5 g/dL (0.2-0.5) 03/20/22 Unknown Gamma Globulins 2.1 g/dL (0.8-1.7) H 03/20/22 Unknown Abnorm Protein Band 1 see below 03/20/22 Unknown PEP Interpretation see below H 03/20/22 Unknown Urine Creatinine 249.2 mg/dL (0.1-20.0) H 03/19/22 09:30 Urine Sodium 10 mmol/L 03/19/22 09:30 Urine Urea Nitrogen 413 03/19/22 09:30 Complement C3 146 mg/dL (83-193) 03/20/22 Unknown Complement C4 19 mg/dL (15-57) 03/20/22 Unknown Beatty/IV: Voiding Method Indwelling Catheter Active Medications - Current Medications Current Medications: Generic Name Dose Route Start Last Admin Trade Name Freq PRN Reason Stop Dose Admin Albuterol 2.5 mg 03/19/22 15:36 03/23/22 08:53 Albuterol 2.5 Mg/3 Ml Nebu IH 2.5 mg Q4HRT PRN Administration Shortness Of Breath Amlodipine Besylate 10 mg 03/25/22 10:00 Amlodipine 10 Mg Tab PO QDAY ARAMIS Budesonide 0.5 mg 03/19/22 12:00 03/24/22 21:15 Budesonide 0.5 Mg/2 Ml Nebu IH 0.5 mg Q12HRT ARAMIS Administration Famotidine 20 mg 03/17/22 11:00 03/24/22 22:23 Famotidine 20 Mg Tab PO 20 mg BID ARAMIS Administration Heparin Sodium (Porcine) 5,000 unit 03/17/22 06:00 03/25/22 05:09 Heparin 5,000 Unit/1 Ml Vial SUB-Q 5,000 unit Q8HR ARAMIS Administration Methylprednisolone Sodium Succinate 40 mg 03/23/22 18:00 03/25/22 05:09 Methylprednisolone Sod Succinate 40 Mg/1 Ml Inj IV 40 mg Q12H ARAMIS Administration Nutrition/Malnutrition Assess - Dietary Evaluation Nutrition/Malnutrition Findings: Nutrition Notes Start: 03/23/22 10:38 Freq: Status: Active Protocol: Document 03/23/22 10:38 GLENN (Rec: 03/23/22 10:41 GLENN [id number]) Nutrition Notes Need for Assessment generated from: LOS Initial or Follow up Brief Note Current Diet Consistent CHO Height 5 ft 4 in Weight 218 kg [place] Body Weight (kg) 54.54 BMI 82.5 Weight Status Morbidly Obese Subjective/Other Information Pt screened for LOS. She has consumed 85% of meals since admission. Percent of energy/protein needs met: 100% energy 71% pro Burn Absent Trauma Absent Current % PO Good (75-100%) Minimum of two criteria No Is patient on ventilator? No Is Patient Ambulatory and/or Out of Bed No REE-([place]-confined to bed) 3350.088 Calculation Used for Recommendations 22-25kcal/kg IBW Additional Notes Energy needs: 1200-1364kcal/ day Pro needs 0.8-1g/kg adjBW: 109 -136g/day Fluid needs 1ml/kcal Nutrition Intervention Revisit per MD consult or patient Sign Off request:
[2022-03-25] MEDS: BUDESONIDE 0.5 MG/2 ML NEBU IH SCH ×2 (09:16→21:06)
[2022-03-25] MEDS: amLODIPine 10 MG TAB PO SCH (09:43)
[2022-03-25] MEDS: FAMOTIDINE 20 MG TAB PO SCH ×2 (09:44→21:33)
--- NOTE | 2022-03-25 13:18 | Progress Note ---
Assessment and Plan 51 y/o morbidly obese female with acute hypoxic hypercapnic respiratory failure. 03/25/22: Steroid taper at discharge: Prednisone 40 daily for 2 days, 20 daily for 2 days then stop. Follow up with Dr. Quinn, patient just telling me today that this is who she sees as an out patient. Will defer to her for sleep study and possible NIV therapy. Will see as needed. Please arrange follow up with Dr. Quinn at discharge. 03/24/22: No objection to changing to oral steroids in the next 12-24 hours. Same taper as below. Will arrange follow up with us pending on what insurer the patient has. At discharge should resume her home Advair dosing, nebs and continue steroid taper. Needs to be assessed for home oxygen. Room air sats should work or admit ABG. Guarded prognosis. 03/23/22: Dropped steroids to 40 q12. At discharge suggest the followin daily for 3 days, 40 daily for 3 days, 20 daily for 3 days then stop. Walk test if possible. Cannot refer for NIV therapy without knowing if patient is funded. Will discuss with CM. 03/22/22: Bariatric surgery cutoff BMI at this hospital is 60 so not a candidate for surgery here. Would like to start weaning steroids but if still on HFNC today will reassess tomorrow. Continue PPV at night and PRN. 03/21/22: place on bipap now. bipap qhs and PRN during the day. Will discuss getting NIV with patient, she qualifies based on blood gas and OHS. 03/20/22: Continue Tele monitoring. Ok with steroids. PPV at night. Guarded prognosis. 03/19/22: Transfer back to floor or IMCU. Follow up renal ultrasound. Would not suggest IVF. If pre renal would allow patient to correct on her own 1. Continuous bipap therapy 2. Repeat ABG in about 1-2 hours 3. NPO 4. Hold on diuretic therapy, need to repeat chemistry. 5. If given a break on bipap, must be put back on tonight 6. Consider Bariatric surgery evaluation as outpatient 7. Guarded prognosis. Subjective Date of service: 03/25/22 Principal diagnosis: Acute respiratory failure, obesity hypoventilation syndrome Interval history: Awake and alert. Sitting up in chair. Qualifies for O2 and CM working on this. Objective Vital Signs - 12hr 03/25/22 03/25/22 03/25/22 03:25 04:00 08:00 Temperature 98.9 F Pulse Rate 92 H 94 H Pulse Rate [ Bilateral Throughout] Respiratory 18 18 Rate Respiratory Rate [Bilateral Throughout] Blood Pressure 158/103 O2 Sat by Pulse 99 96 Oximetry 03/25/22 03/25/22 08:08 09:18 Temperature 98.0 F Pulse Rate 71 Pulse Rate [ 93 H Bilateral Throughout] Respiratory 18 Rate Respiratory 19 Rate [Bilateral Throughout] Blood Pressure 123/75 O2 Sat by Pulse 95 95 Oximetry Constitutional: other (morbidly, morbidly obese) ENT: oropharynx dry Neck: other (neck cir is greater than 30) Effort: mildly labored Ascultation: Bilateral: diminished breath sounds Percussion: Bilateral: not dull Cardiovascular: regular rate and rhythm Gastrointestinal: normoactive bowel sounds Extremities: anasarca CBC and BMP: 03/22/22 06:58 03/23/22 04:00 ABG, PT/INR, D-dimer: ABG ABG pH 7.246 pH Units (7.350-7.450) L 03/18/22 17:23 ABG pCO2 87.1 mm Hg 03/18/22 17:23 ABG pO2 77.6 mm Hg (80.0-90.0) L 03/18/22 17:23 ABG O2 Saturation 95.2 % (95.0-99.0) 03/18/22 17:23 PT/INR, D-dimer PT 15.9 Sec. (12.2-14.9) H 03/16/22 18:29 INR 1.14 (0.87-1.13) H 03/16/22 18:29 Abnormal lab findings: Abnormal Labs 03/16/22 03/16/22 03/16/22 18:29 18:29 18:29 RBC Hgb 8.6 L Hct 29.4 L MCV MCH 23 L MCHC 29 L RDW 20.0 H Lymph % (Auto) Rolette % (Auto) 13.9 H Lymph # (Auto) Rolette # (Auto) 1.2 H Seg Neutrophils % PT 15.9 H INR 1.14 H ABG pH ABG pO2 ABG HCO3 ABG O2 Saturation ABG Base Excess ABG Hemoglobin Oxyhemoglobin Sodium 132 L Potassium 5.2 H Chloride 90.9 L Carbon Dioxide 33 H BUN Creatinine Glucose POC Glucose Calcium Phosphorus Magnesium NT-Pro-B Natriuret Pep 2855 H Albumin 3.7 L Ngwgp-7-Ghbrkvygx Gamma Globulins PEP Interpretation Urine Creatinine 03/16/22 03/17/22 03/17/22 19:35 05:10 05:10 RBC Hgb 8.6 L Hct MCV MCH 23 L MCHC 28 L RDW 20.4 H Lymph % (Auto) 11.2 L Rolette % (Auto) 15.2 H Lymph # (Auto) 1.1 L Rolette # (Auto) 1.5 H Seg Neutrophils % 73.1 H PT INR ABG pH 7.268 L ABG pO2 53.0 L ABG HCO3 35.5 H ABG O2 Saturation 78.5 L ABG Base Excess 7.0 H ABG Hemoglobin 8.8 L Oxyhemoglobin 76.5 L Sodium 134 L Potassium 6.3 H* D Chloride 93.9 L Carbon Dioxide 37 H BUN Creatinine Glucose POC Glucose Calcium 8.3 L Phosphorus Magnesium NT-Pro-B Natriuret Pep Albumin Drjfm-6-Clbjvsybw Gamma Globulins PEP Interpretation Urine Creatinine 03/17/22 03/18/22 03/18/22 23:05 05:35 12:00 RBC Hgb Hct MCV MCH MCHC RDW Lymph % (Auto) Rolette % (Auto) Lymph # (Auto) Rolette # (Auto) Seg Neutrophils % PT INR ABG pH 7.194 L* ABG pO2 ABG HCO3 37.8 H ABG O2 Saturation ABG Base Excess 8.1 H ABG Hemoglobin 8.0 L Oxyhemoglobin 94.4 L Sodium 133 L Potassium 6.0 H 6.2 H* Chloride 92.1 L Carbon Dioxide 31 H BUN 19 H Creatinine 1.7 H D Glucose 113 H POC Glucose Calcium Phosphorus 6.70 H Magnesium 2.40 H 2.40 H NT-Pro-B Natriuret Pep Albumin 3.5 L Kihnb-1-Tmhwgvggs Gamma Globulins PEP Interpretation Urine Creatinine 03/18/22 03/18/22 03/18/22 16:32 17:23 18:01 RBC Hgb Hct MCV MCH MCHC RDW Lymph % (Auto) Rolette % (Auto) Lymph # (Auto) Rolette # (Auto) Seg Neutrophils % PT INR ABG pH 7.246 L ABG pO2 77.6 L ABG HCO3 37.0 H ABG O2 Saturation ABG Base Excess 8.1 H ABG Hemoglobin 8.1 L Oxyhemoglobin 93.1 L Sodium Potassium 6.2 H* Chloride Carbon Dioxide BUN Creatinine Glucose POC Glucose 114 H Calcium Phosphorus Magnesium 2.50 H NT-Pro-B Natriuret Pep Albumin Ewpes-3-Nalfhpvsr Gamma Globulins PEP Interpretation Urine Creatinine 03/18/22 03/19/22 03/19/22 18:48 01:16 04:38 RBC Hgb Hct MCV MCH MCHC RDW Lymph % (Auto) Rolette % (Auto) Lymph # (Auto) Rolette # (Auto) Seg Neutrophils % PT INR ABG pH ABG pO2 ABG HCO3 ABG O2 Saturation ABG Base Excess ABG Hemoglobin Oxyhemoglobin Sodium 133 L Potassium 5.9 H Chloride 92.4 L Carbon Dioxide 33 H BUN 32 H Creatinine 2.3 H Glucose 111 H POC Glucose 136 H 114 H Calcium Phosphorus Magnesium NT-Pro-B Natriuret Pep Albumin Twmgn-9-Dbbnfykpu Gamma Globulins PEP Interpretation Urine Creatinine 03/19/22 03/20/22 03/20/22 09:30 23:16 Unknown RBC Hgb Hct MCV MCH MCHC RDW Lymph % (Auto) Rolette % (Auto) Lymph # (Auto) Rolette # (Auto) Seg Neutrophils % PT INR ABG pH ABG pO2 ABG HCO3 ABG O2 Saturation ABG Base Excess ABG Hemoglobin Oxyhemoglobin Sodium Potassium 5.6 H Chloride 95.1 L Carbon Dioxide 36 H BUN 41 H Creatinine 1.3 H Glucose 119 H POC Glucose Calcium Phosphorus Magnesium NT-Pro-B Natriuret Pep Albumin 3.1 L Cicax-0-Tvfusfhld 0.4 H Gamma Globulins 2.1 H PEP Interpretation see below H Urine Creatinine 249.2 H 03/21/22 03/22/22 03/22/22 10:49 06:58 06:58 RBC 3.62 L Hgb 8.6 L Hct 28.4 L MCV 78 L MCH 24 L MCHC RDW 19.9 H Lymph % (Auto) Rolette % (Auto) Lymph # (Auto) Rolette # (Auto) Seg Neutrophils % PT INR ABG pH ABG pO2 ABG HCO3 ABG O2 Saturation ABG Base Excess ABG Hemoglobin Oxyhemoglobin Sodium Potassium 5.5 H 5.7 H Chloride 95.0 L 97.7 L Carbon Dioxide 37 H 36 H BUN 40 H 32 H Creatinine Glucose 139 H 116 H POC Glucose Calcium Phosphorus Magnesium NT-Pro-B Natriuret Pep Albumin Bamym-7-Ooizmrpyp Gamma Globulins PEP Interpretation Urine Creatinine 03/23/22 04:00 RBC Hgb Hct MCV MCH MCHC RDW Lymph % (Auto) Rolette % (Auto) Lymph # (Auto) Rolette # (Auto) Seg Neutrophils % PT INR ABG pH ABG pO2 ABG HCO3 ABG O2 Saturation ABG Base Excess ABG Hemoglobin Oxyhemoglobin Sodium Potassium 5.6 H Chloride 97.9 L Carbon Dioxide 39 H BUN 28 H Creatinine Glucose 117 H POC Glucose Calcium Phosphorus Magnesium NT-Pro-B Natriuret Pep Albumin Nfthi-7-Texfoxhyh Gamma Globulins PEP Interpretation Urine Creatinine
[2022-03-25] MEDS: SODIUM POLYSTYRENE 15 GM/60 ML ORAL LIQD PO SCH (13:55)
[2022-03-26] MEDS: HEPARIN 5,000 UNIT/1 ML VIAL SUB-Q SCH ×2 (07:24→14:47)
[2022-03-26] MEDS: BUDESONIDE 0.5 MG/2 ML NEBU IH SCH ×2 (08:25→20:57)
--- NOTE | 2022-03-26 08:30 | Discharge Summary ---
Providers - Providers Date of Admission: 03/16/22 21:07 Attending physician: MICHAEL ROSE MD 03/16/22 22:12 Consult to Physician [CONS] Routine Comment: Consulting Provider: GORDO RICHARDS Physician Instructions: Reason For Exam: chf 03/17/22 16:51 Consult to Physician [CONS] Routine Comment: Consulting Provider: TIFF BLACKWOOD Physician Instructions: Reason For Exam: Ac resp failure/obesity hypovent/continuous BiPAP 03/19/22 08:51 Consult to Physician [CONS] Routine Comment: Consulting Provider: ROMINA FELIX Physician Instructions: Reason For Exam: ever 03/23/22 14:22 Consult to Case Management [CONS] Routine Services Needed at Discharge: Home O2 Notified:: Case management Additional Physician Instructions: 02 at 2lpm stationary concentrator/portable via nasal cannula continuous. NPI#[id number] 03/24/22 08:37 Physical Therapy Evaluation and Treat [CONS] Routine Comment: Reason For Exam: debility 03/25/22 08:26 Occupational Therapy Evaluate and Treat [CONS] Routine Comment: Reason For Exam: debility Primary care physician: HECTOR DEL CASTILLO Hospitalization Reason for admission: SHORTNESS OF BREATH Condition: Stable Hospital course: This is 51 year old female with asthma, hypertension, morbid obesity who presented to emergency department on 03/16 with shortness of breath over the past 2 to 3 weeks, occasional appropriate adductive cough of white sputum and orthopnea. In the emergency department ABG was 7.268, 79.5, 53.0, 35.5 on 78% SPO2, CXR compatible with CHF exacerbation and proBNP was 2055. Patient was placed on BiPAP and given Lasix, nebulized breathing treatments and admitted to the hospital service with consults to cardiology. Hospital course to date: 03/17: Pulmonology consulted, remains on BiPAP 03/18: Hyperkalemia 6.2 corrected with Kayexalate and insulin and dextrose, acute kidney injury probably secondary to overdiuresis and lisinopril discontinued, patient was on high flow nasal cannula but was transferred to ICU on BiPAP therapy for possible intubation. Intubation did not occur. 03/19: Remains on BiPAP, hyperkalemia corrected, worsening renal function therefore nephrology was consulted. Patient will be transferred back to the floor. 03/19: Transitioned to Hi flow nasal cannula 30/45. However recommend continue bipap qhs. D/w RT to aggressively wean as sat tolerate > 90%. Would recommend additional volume for renal function .Will continue to trend Cr at this time. 03/21: Continue supportive care. Patient continues on high flow at 30/45%. I do strongly discussed with the team to use the BiPAP at night as she was intermittently falling asleep while she was speaking. Aspiration precautions. I requested repeat labs to see what was found with renal function. She does have a Beatty catheter in place which will be evaluated prior to discharge. Counseling provided again on obesity management. Outpatient referral to obesity clinic to be done. 03/22: Patient noted with still hyperkalemia, will give additional Kayxalate today, Pulm to assess weaning steroids. Patient remains on oxygen supplementation 03/23: Kionex ordered due to elevated potassium. Recheck tomorrow AM. D/w pulmonary. Will start tapering steroids. May need home O2, walk test ordered and cm consult for home oxygen placed. Plan for potential d/c tomorrow. 03/24: Waiting physical therapy evaluation. Pulmonology recs noted. Continue to wean steroids. Anticipate discharge by the end of the week. Discharge planning conducted with CM. 03/25: Added norvasc for better BP control. Awaiting recs from PT/OT. continue to taper steroids. Discharge planning underway. 03/26: Patient seen and examined doing well she will need home oxygen and on discharge. I did discuss with nursing staff about updating her address. Also ordered steroids as recommended by the heavy duty custodian for total of 4 days. She will follow-up with Dr. Quinn her heavy duty custodian. Sleep study is recommended. She will follow-up also with the motel front desk attendant to monitor her persistently elevated potassium she will be discharged kionex 15 mg qday. Her Beatty is to be discontinued prior to discharge This is a 51-year-old female with asthma, HTN, morbid obesity admitted with new onset CHF with exacerbation and acute hypoxic and hypercapnic respiratory failure Neuro: NAD -Reorientation as needed -Maintain sleep-wake cycle -As needed analgesia Cardiac: New Onset Acute diastolic Congestive Heart failure, Diastolic heart failure. HTN -Cardiology consulted, appreciate recommendations -Admit proBNP 2855 -Blood pressure monitoring per protocol -S/p diuresis with Lasix -Echocardiogram shows EF 55 to 60%. Flattened septum consistent with right ventricular volume and pressure overload. HOLD MYRON-i due to renal fx. - add norvsac for BP control Respiratory: Acute hypoxic hypercapnic respiratory failure, Obesity hypoventilation syndrome, h/o asthma -CCM consulted, appreciate recommendations -BiPAP therapy -Pulmonary hygiene -SPO2 monitor per protocol -Zain Velazquezmicort -Steroids -Outpatient follow-up with pulmonology for PFTs GI: Morbid Obesity -PPI -CC diet -Lifestyle and dietary modifications strongly encouraged : Acute kidney injury likely secondary to vasomotor nephropathy, hyperkalemia, hyperphosphatemia -Nephrology consulted, appreciate recommendations -Monitor intake and output -Renally dose medications -Avoid nephrotoxic medications -03/19 FeNa 0.01% -Renal ultrasound pending -Trend BMP -Kayexalate for hyperkalemia ID: NAD -Monitor WBC and temperature curve Endo: NAD -Avoid hypoglycemia -SSI -Accu-Cheks q. 6 while n.p.o. Heme: NAD -Trend CBC -Transfuse hemoglobin less than 7 -SCDs to BLE while in bed #Advance care planning Disease education conducted, care plan discussed, diagnoses discussed, prognosis discussed, patient is full code, patient acknowledges understanding and agree with care plan, +30 minutes. Disposition: HOME / SELF CARE / HOMELESS Final Discharge Diagnosis (Prints w/discharge instructions): Acute Diastolic Congestive Heart failure, Diastolic heart failure. HTN. Acute hypoxic hypercapnic respiratory failure, Obesity hypoventilation syndrome, h/o asthma. Morbid Obesity. Acute kidney injury likely secondary to vasomotor nephropathy, hyperphosphatemia. Hyperkalemia. Respiratory alkalosis Time spent for discharge: 35 mins Core Measure Documentation - Palliative Care Palliative Care/ Comfort Measures: Not Applicable - Core Measures Any of the following diagnoses?: none Exam - Physical Exam Narrative exam: General appearance: Present: well-nourished, obese (Morbidly obese), nasal cannula, SITTING UP - EENT Eyes: Present: PERRL, EOM intact ENT: hearing intact, clear oral mucosa, dentition normal - Neck Neck: Present: normal ROM - Respiratory Respiratory effort: normal Respiratory: bilateral: diminished - Cardiovascular Rhythm: regular Heart Sounds: Present: S1 & S2. Absent: systolic murmur, diastolic murmur - Extremities Extremities: no ischemia, pulses intact, pulses symmetrical, No edema, normal temperature, normal color Peripheral Pulses: within normal limits - Abdominal General gastrointestinal: soft, non-tender, non-distended, normal bowel sounds - Integumentary Integumentary: Present: warm, dry - Psychiatric Psychiatric: cooperative - Neurologic Neurologic: CNII-XII intact, no focal deficits, moves all extremities - Allied Health Allied health notes reviewed: nursing, RT, social work - Constitutional Vitals: Temp Pulse Resp BP Pulse Ox 97.9 F 84 22 106/59 98 03/26/22 03:50 03/26/22 03:50 03/26/22 03:50 03/26/22 03:50 03/26/22 07:00 Plan Activity: advance as tolerated, fall precautions Diet: low salt (low potassium diet) Special Instructions: record daily weights, record daily BP diary Care Plan Goals: Strongly encouraged to lose weight. Needs to follow-up with heavy duty custodian for sleep study to evaluate for NIV. Follow up with: HECTOR DEL CASTILLO MD [Primary Care Provider] - 7 Days EDUARD GA MD [Staff Physician] - 7 Days DEUCE QUINN MD [Staff Physician] - 7 Days VALENTIN VERDIN MD [Referring] - 7 Days Prescriptions: amLODIPine 10 mg PO QDAY #30 tablet predniSONE [Deltasone] 20 mg PO QDAY #6 tab Sodium Polystyrene [Kionex] 15 gm PO QDAY #120 ml Furosemide [Lasix TAB] 20 mg PO QAM #30 tablet Famotidine [Pepcid] 20 mg PO BID #60 tablet
[2022-03-26] MEDS ORDERED: FUROSEMIDE 20 MG TAB PO SCH (10:00)
[2022-03-26] MEDS ORDERED: methylPREDNISolone Sod Succinate 40 MG/1 ML INJ IV SCH (10:00)
[2022-03-26] MEDS ORDERED: FUROSEMIDE 40 MG TAB PO SCH ×2 (10:00)
[2022-03-26] MEDS: FAMOTIDINE 20 MG TAB PO SCH (10:15)
[2022-03-26] MEDS: amLODIPine 10 MG TAB PO SCH (10:15)
[2022-03-26] MEDS: SODIUM POLYSTYRENE 15 GM/60 ML ORAL LIQD PO SCH (10:16)
[2022-03-26 11:49] LABS: Myeloperoxidase Antibody <1.0 AI (<1.0)
[2022-03-26 12:45] LABS: ANA Screen, IFA Positive (Negative)
[2022-03-26 17:14] VITALS: BP 105/76
== END 2022-03-26 19:00 | disposition home health service (06) | DRG 189 ==
LOC: ED 15:51 → 4A 21:07 → CC1 03-18 14:15 → 4A 03-19 18:20
PROVIDERS: ADMIT Hospitalist; ATTEND Internal Medicine
PROC: 4A033R1 Measurement of Arterial Saturation, Peripheral, Percutaneous Approach (ICD-10-PCS; principal; 2022-03-16)
PROC: 5A09557 Assistance with Respiratory Ventilation, Greater than 96 Consecutive Hours, Continuous Positive Airway Pressure (ICD-10-PCS; 2022-03-16)
PROC: 5A0945A Assistance with Respiratory Ventilation, 24-96 Consecutive Hours, High Flow/Velocity Cannula (ICD-10-PCS; 2022-03-17)
PROC: 5A0935A Assistance with Respiratory Ventilation, Less than 24 Consecutive Hours, High Flow/Velocity Cannula (ICD-10-PCS; 2022-03-19)
PROC: 5A0935A Assistance with Respiratory Ventilation, Less than 24 Consecutive Hours, High Flow/Velocity Cannula (ICD-10-PCS; 2022-03-20)
PROC: 5A0935A Assistance with Respiratory Ventilation, Less than 24 Consecutive Hours, High Flow/Velocity Cannula (ICD-10-PCS; 2022-03-21)
PROC: 5A0935A Assistance with Respiratory Ventilation, Less than 24 Consecutive Hours, High Flow/Velocity Cannula (ICD-10-PCS; 2022-03-22)
PROC: 5A0935A Assistance with Respiratory Ventilation, Less than 24 Consecutive Hours, High Flow/Velocity Cannula (ICD-10-PCS; 2022-03-23)
PROC: 5A0935A Assistance with Respiratory Ventilation, Less than 24 Consecutive Hours, High Flow/Velocity Cannula (ICD-10-PCS; 2022-03-24)
PROC: 5A0935A Assistance with Respiratory Ventilation, Less than 24 Consecutive Hours, High Flow/Velocity Cannula (ICD-10-PCS; 2022-03-25)
PROC: 5A0935A Assistance with Respiratory Ventilation, Less than 24 Consecutive Hours, High Flow/Velocity Cannula (ICD-10-PCS; 2022-03-26)
DX: J96.01 Acute respiratory failure with hypoxia (principal); I11.0 Hypertensive heart disease with heart failure; J96.02 Acute respiratory failure with hypercapnia; N17.0 Acute kidney failure with tubular necrosis; I50.31 Acute diastolic (congestive) heart failure; Z68.44 Body mass index [BMI] 60.0-69.9, adult; E66.01 Morbid (severe) obesity due to excess calories; E87.3 Alkalosis; Z20.822 Contact with and (suspected) exposure to COVID-19; Z68.45 Body mass index [BMI] 70 or greater, adult; E87.5 Hyperkalemia; E86.0 Dehydration; J45.901 Unspecified asthma with (acute) exacerbation; D64.9 Anemia, unspecified; E87.1 Hypo-osmolality and hyponatremia
CPT/HCPCS: 36415; 36600; 71045; 76770; 80048; 80053; 82570; 82803; 82962; 83520; 83735; 83880; 84100; 84132; 84165; 84300; 84484; 84520; 85025; 85027; 85610; 85730; 86021; 86038; 86160; 93005; 93306; 94640; 94660; 94760; 99285; G0378; J3490; Q9967; C8929; J0610; J1644; J1815; J1940; J2920; J2930; J7030